=== PATIENT | male | born 1950 | race Caucasian/White ===

== ENCOUNTER 2024-04-06 13:11 | Inpatient (IN) | payer OTHER, MEDICARE, SELFPAY ==
[2024-04-06] VITALS (20 sets, daily range): BP systolic 93–142; BP diastolic 52–113; PULSE 94–205; RESP 16–36; TEMP 37–38.7; O2SAT 76–99; BMI 27.1
--- NOTE | 2024-04-06 13:13 | EKG_ITS ---
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
[2024-04-06] MEDS: ALBUTEROL RT 2.5 MG/0.5 ML NEBU 10 MG INH (13:19)
[2024-04-06] MEDS: SODIUM CHLORIDE RT SOL 0.9% 3 ML NEBU INH ×2 (13:19→17:10)
[2024-04-06] MEDS: IPRATROPIUM RT 0.5 MG/ 2.5 ML NEBU INH (13:19)
--- NOTE | 2024-04-06 13:20 | EDNOTE_ITS ---
ED SOB =RME/HPI General Chief Complaint: Shortness of Breath/Dyspnea Stated Complaint: STAT Time Seen by Provider: 04/06/24 13:13 Arrival date/time: 04/06/24 13:11 RME / HPI RME / HPI Narrative: DR. PENNINGTON MAIN ED EVALUATION: 73 year old male presents to the Emergency Department [facility] with complaint of shortness of breath. Patient also reported diarrhea. Symptoms are moderate. Onset of symptoms 3-4 days. No other symptoms reported. PMHx: Denies any PMHx, surgeries, daily medications, or known allergies. Social Hx: No tobacco, alcohol, or substance use. Related Data Allergies Allergy/AdvReac Type Severity Reaction Status Date / Time No Known Allergies Allergy Verified 04/06/24 13:26 Review of Systems Review of Systems Systems Reviewed: All systems reviewed, normal except as documented Narrative Review of Systems: GEN: No fever, no chills, no weight loss EYES: No discharge, no visual changes, no pain HEENT: No ear pain, no congestion, no sore throat PULM: + shortness of breath, no cough, no congestion CV: No chest pain, no dyspnea on exertion, no palpitations GI: No nausea, no vomiting, + diarrhea, no pain, no constipation : No frequency, no urgency and no dysuria MUSC/SKEL: No joint pain, no back pain SKIN: No rash PSYCH: No hallucinations, no depression HEME/LYMPH: No easy bleeding or bruising tendencies NEURO: No weakness, no headache Past Medical History Social History SMOKING STATUS: Never smoker SUBSTANCE USE: does not use ALCOHOL: Never ED Exam Narrative Physical exam: GENERAL APPEARANCE: alert and oriented x 4, well-developed, well-nourished, no acute distress VITALS: All vitals were reviewed and the pulse ox is 93% on room air, which is normal according to my interpretation. HEENT: Normocephalic, atraumatic; pupils equal, round, reactive to light; EOMI; mucous membranes pink, moist; oropharynx clear NECK: Supple LUNGS: CTABL; no wheezes, no rales, no rhonchi HEART: Regular rate, regular rhythm; normal S1, S2; no murmurs ABDOMEN: non distended; normal BS; soft, no tenderness, no guarding, no rebound; no masses, no organomegaly, no hernia BACK: no CVA tenderness EXTREMITIES: atraumatic; no edema NEUROLOGIC: awake; alert and oriented x4; cranial nerves II-XII grossly intact; no focal sensory or motor deficits PSYCHIATRIC: appropriate mood and affect SKIN: warm, dry, normal color; no rashes Course Course Course Narrative: 1800: Patient was signed out to Dr. Montejo. Past medical, surgical, social and family history reviewed. Vitals and home medications reviewed. Results and treatment plan discussed. They will assume the care of the patient at this time and will follow the patient, pending abdomen/ pelvis CT and final disposition. Quality Measures none Orders Category Date Time Status CT Screening NOW Care 04/06/24 16:48 Active Childcare Center Director NOW Care 04/06/24 14:22 Active EKG (ED ONLY) *Do not use* NOW Care 04/06/24 13:13 Completed EKG (ED ONLY) *Do not use* NOW Care 04/06/24 15:01 Completed EKG (ED ONLY) *Do not use* NOW Care 04/06/24 16:41 Active Insert IV NOW Care 04/06/24 17:[address] abdomen pelvis w con Stat Exams 04/06/24 16:48 Ordered EKG (ED Only) Stat Exams 04/06/24 13:13 Draft EKG (ED Only) Stat Exams 04/06/24 15:01 Draft EKG (ED Only) Stat Exams 04/06/24 16:41 Ordered XR chest 1V portable Stat Exams 04/06/24 14:22 Completed B-Type Natriuretic Peptide Stat Lab 04/06/24 15:00 Completed Blood Culture (Lab) Stat Lab 04/06/24 15:00 Received CBC Stat Lab 04/06/24 15:00 Completed Comprehensive Metabolic Panel Stat Lab 04/06/24 15:00 Completed Lactate (Lactic Acid) Stat Lab 04/06/24 15:00 Results Lipase Stat Lab 04/06/24 15:00 Completed Magnesium Stat Lab 04/06/24 15:00 Completed Partial Thromboplastin Time Stat Lab 04/06/24 15:00 Completed Procalcitonin Stat Lab 04/06/24 15:00 Completed Prothrombin Time with INR Stat Lab 04/06/24 15:00 Completed Troponin I Stat Lab 04/06/24 15:00 Completed Urinalysis Stat Lab 04/06/24 14:22 Ordered Urine Culture Stat Lab 04/06/24 14:22 Ordered ALBUTEROL RT 0.5ml [Proventil Rt 0.5ml] Med 04/06/24 13:13 Discontinued 10 mg INH X1 ONE Acetaminophen Tab [Tylenol ES Tab] Med 04/06/24 16:40 Discontinued 1,000 mg PO X1 ONE Aspirin Chew Med 04/06/24 16:42 Discontinued 325 mg PO X1 ONE Aspirin Chew Med 04/06/24 16:29 Discontinued 81 mg PO X1 ONE Azithromycin Inj [Zithromax Inj] 500 mg Med 04/06/24 16:39 Discontinued Sodium Chloride 0.9% 250 ml [Ns] 250 ml IV X1 Heparin/D5w 25K 250 ML Ivpb [Heparin in D5w Ivpb] Med 04/06/24 16:15 Active 25,000 unit in 250 ml IV 12 units/kg/hr Ipratropium Maynard Rt Khadra [Atrovent Rt Khadra] Med 04/06/24 13:13 Discontinued 0.5 mg INH X1 ONE Levalbuterol Rt [Xopenex Rt Khadra] Med 04/06/24 16:50 Discontinued 1.25 mg INH X1 ONE Nicotine Patch [Nicoderm Patch] Med 04/06/24 15:00 Discontinued 21 mg TOP X1 ONE Sodium Chloride 0.9% 1000 ml [Ns] 1,000 ml Med 04/06/24 15:33 Discontinued IV 999 mls/hr Sodium Chloride Rt Khadra 0.9% [NS Rt Khadra 0.9%] Med 04/06/24 13:13 Active 3 ml INH PRN PRN Sodium Chloride Rt Khadra 0.9% [NS Rt Khadra 0.9%] Med 04/06/24 13:13 Active 3 ml INH PRN PRN Sodium Chloride Rt Khadra 0.9% [NS Rt Khadra 0.9%] Med 04/06/24 16:50 Active 3 ml INH PRN PRN cefTRIAXone/D5w 1gm IV premix [Rocephin/D5w 1gm IV Med 04/06/24 16:39 Discontinued premix] 50 ml IV X1 Reevaluation(s) Reevaluation #1: Troponin 0.309, gave ASA 325. Patient now breathing better and will give another breathing treatment. Time: 16:50 Vital Signs Vital signs: Vital Signs Temperature 98.6 F 04/06/24 13:17 Pulse Rate 130 H 04/06/24 13:17 Respiratory Rate 32 H 04/06/24 13:17 Blood Pressure 139/113 H 04/06/24 13:17 Pulse Oximetry (%) 98 04/06/24 13:17 Oxygen Delivery Method Oxy Mask 04/06/24 13:17 Oxygen Flow Rate 6 04/06/24 13:17 Shortness of Breath / Dyspnea MDM Narrative MDM Narrative:: I, Ingrid Montoya, am scribing for and in the presence of Dr. Pennington. Patient data External records reviewed:: EMS form Clinical information provided by:: patient and EMS Social determinants that could affect healthcare access:: none Patient has the following chronic illnesses:: Denies any PMHx, surgeries, daily medications, or known allergies. How is presenting disease/condition affected by chronic disease/condition?: no chronic disease Evaluation data The following diagnostics were reviewed and interpreted by me:: lab results, radiology exam(s) and EKG tracing(s) Lab and/or radiology exams considered but not ordered:: none Interpretation Summary: Troponin 0.309, gave ASA 325 EKG#1: EKG at 1518 hours. Interpreted by me: sinus tachycardic, rate 127, occasional PVC's, no acute ischemia, mild artifact EKG#2: EKG at 1710 hours. Interpreted by me: sinus tachycardic, rate 125, frequent PVC's, no acute ischemia, mild artifact RADIOLOGY Procedure(s): XR chest 1V portable Accession Number(s): [id number] cc: Luis Willis MD; NO PRIMARY/FAMILY,PHYSICIAN; Ria Pennington MD~ Examination: AP chest single view Technique one AP portable upright chest single view Exam date and time: April 06, 2024 1502 hours INDICATIONS: Onset chest pain today FINDINGS: Normal heart size Mild accentuation bronchovascular markings. No lobar pneumonia Prominent osteopenia IMPRESSION: Basilar bronchitis pattern Dictated By: Luis Willis MD Medications / Prescriptions Medications or Prescriptions considered but not ordered:: none Medication administrations:: Medication Administration History Heparin Sodium/Dextrose (Heparin In D5w Ivpb) 25,000 unit in 250 mls @ 10.886 mls/hr IV .[id number]; Protocol Stop: 04/20/24 16:14 Sodium Chloride (Sodium Chloride Rt Khadra 0.9% 3 Ml Nebu) 3 ml INH PRN PRN PRN Reason: SOLN Stop: 05/06/24 13:12 Last Admin: 04/06/24 17:10 Dose: 3 ml Documented By: Admin: 04/06/24 13:19 Dose: 3 ml Documented By: JAY Sodium Chloride (Sodium Chloride Rt Khadra 0.9% 3 Ml Nebu) 3 ml INH PRN PRN PRN Reason: SOLN Stop: 05/06/24 13:12 Sodium Chloride (Sodium Chloride Rt Khadra 0.9% 3 Ml Nebu) 3 ml INH PRN PRN PRN Reason: SOLN Stop: 05/06/24 16:49 Discontinued Medications Acetaminophen (Acetaminophen 500 Mg Tablet) 1,000 mg PO X1 ONE Stop: 04/06/24 16:41 Last Admin: 04/06/24 17:02 Dose: 1,000 mg Documented By: SON Albuterol (Albuterol Rt 2.5 Mg/0.5 Ml Nebu) 10 mg INH X1 ONE Stop: 04/06/24 13:14 Last Admin: 04/06/24 13:19 Dose: 10 mg Documented By: JAY Aspirin (Aspirin 81 Mg Chew) 81 mg PO X1 ONE Stop: 04/06/24 16:30 Last Admin: 04/06/24 16:58 Dose: Not Given Documented By: SON Non-Admin Reason: Cancelled by Provider Aspirin (Aspirin 81 Mg Chew) 325 mg PO X1 ONE Stop: 04/06/24 16:43 Last Admin: 04/06/24 17:03 Dose: 325 mg Documented By: SON Sodium Chloride (Ns) 1,000 mls @ 999 mls/hr IV .Q1H1M ONE Stop: 04/06/24 16:33 Last Admin: 04/06/24 16:57 Dose: 999 mls/hr Documented By: SON Ceftriaxone Sodium/Dextrose (Rocephin/D5w 1gm Iv Premix) 50 mls @ 100 mls/hr IV X1 ONE Stop: 04/06/24 17:08 Last Admin: 04/06/24 17:06 Dose: 100 mls/hr Documented By: DB Azithromycin 500 mg/ Sodium (Chloride) 250 mls @ 250 mls/hr IV X1 ONE Stop: 04/06/24 17:38 Ipratropium Maynard (Ipratropium Rt 0.5 Mg/ 2.5 Ml Nebu) 0.5 mg INH X1 ONE Stop: 04/06/24 13:14 Last Admin: 04/06/24 13:19 Dose: 0.5 mg Documented By: TM Levalbuterol HCl (Levalbuterol Rt 1.25 Mg/0.5 Ml Nebu) 1.25 mg INH X1 ONE Stop: 04/06/24 16:51 Last Admin: 04/06/24 17:10 Dose: 1.25 mg Documented By: RICHY Nicotine (Nicotine Patch 21 Mg/24 Hr Patch.Td24) 21 mg TOP X1 ONE Stop: 04/06/24 15:01 Last Admin: 04/06/24 17:05 Dose: 21 mg Documented By: SON see above Consultations Consultation(s) initiated? (list below): Yes Consultation #1 (Physician, Specialty, Details): Discussed test HPI, PMHx, lab, radiology results and/or management with Dr. Ferro's resident. Cancelled heparin drip becausem patient is not in atrial fibrillation. Time: 17:00 Diagnosis Shortness of Breath Differential Diagnosis: acute exacerbation of chronic obstructive airways disease, community acquired pneumonia, asthma with exacerbation and pulmonary embolism Most likely diagnosis given after review of the tests above:: No official diagnoses at this time, still pending diagnostic tests. Patient signout to the shift production supervisor provider. Admission Indicated Admission indicated?: indicated Explain why admission is indicated or not indicated:: No final disposition plan at this time, still pending diagnostic tests. Patient signout to the shift production supervisor provider. Admission Request Was there a request for admission?: No Disposition Plan Disposition Plan: other (specify) (Patient signout to the shift production supervisor provider. ) Discharge Plan Prescriptions/Referrals Referrals: No Primary/Family,Physician [Primary Care Provider] - In 1 week Patient/Caregiver Discharge Instructions Print Language: Wallisian
--- NOTE | 2024-04-06 14:22 | XR_ITS ---
Examination: AP chest single view Technique one AP portable upright chest single view Exam date and time: April 06, 2024 1502 hours INDICATIONS: Onset chest pain today FINDINGS: Normal heart size Mild accentuation bronchovascular markings. No lobar pneumonia Prominent osteopenia IMPRESSION: Basilar bronchitis pattern
--- NOTE | 2024-04-06 15:01 | EKG_ITS ---
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
--- NOTE | 2024-04-06 15:21 | PC.NURSE ---
REQUEST NICOTINE PATCH FROM PHARMACY AT THIS TIME. PROVIDED PT WATER, GIVEN THE OK BY WATER QUALITY TECHNICIAN WHO WAS AT BEDSIDE.
[2024-04-06 15:27] LABS: Basophils % (Auto) 0 % (0-2.5); Eosinophils % (Auto) 0 % (0-10); Hematocrit 47.2 % (41.0-53.0); Hemoglobin 15.7 g/dL (13.5-16.0); Immature Granulocytes % (Auto) 1 % (0-0); Immature Granulocytes Auto 0.16 Thou/mm3 (0.00-0.00); Lymphocytes # (Auto) 0.5 Thou/mm3 (1.0-4.8); Lymphocytes % (Auto) 3 % (10-50); Mean Corpuscular HGB Conc 33.3 g/dl (31.0-37.0); Mean Corpuscular Hemoglobin 29.3 pg (25.0-35.0); Mean Corpuscular Volume 88 fL (80-100); Monocytes # (Auto) 1.4 Thou/mm3 (0.0-0.8); Monocytes % (Auto) 9 % (0-12); Neutrophils # (Auto) 13.4 Thou/mm3 (1.8-7.7); Neutrophils % (Auto) 87 % (37-80); Nucleated Red Blood Cell % 0 /100 WBC (0); Platelet Count 236 Thou/mm3 (140-440); Red Blood Count 5.36 Miln/mm3 (4.50-5.90); White Blood Count 15.4 Thou/mm3 (3.8-10.6)
[2024-04-06 15:31] LABS: Lactate (Lactic Acid) 4.1 mMol/L (0.4-2.0)
[2024-04-06 15:48] LABS: B-Type Natriuretic Peptide 60 pg/mL (0-100)
[2024-04-06 15:51] LABS: INR 1.1 (0.9-1.3); Partial Thromboplastin Time 29.4 Seconds (22.0-36.0); Prothrombin Time 11.8 Seconds (9.0-12.2)
[2024-04-06 16:09] LABS: Alanine Aminotransferase 32 U/L (10-49); Albumin, Serum 4.1 gm/dL (3.4-4.8); Albumin/Globulin Ratio 1.6 (1.2-2.2); Alkaline Phosphatase 91 U/L (46-116); Anion Gap 10 (7-16); Aspartate Amino Transferase 74 U/L (0-34); BUN/Creatinine Ratio 17 Ratio (12-20); Bilirubin,Total 0.5 mg/dL (0.3-1.2); Blood Urea Nitrogen 34 mg/dL (9-23); Calcium 8.9 mg/dL (8.3-10.6); Calcium (Corrected) 8.9 mg/dL (8.5-10.1); Carbon Dioxide 23.9 mMol/L (20.0-31.0); Chloride 102 mMol/L (98-107); Estimated Creatinine Clearance 37.2 mL/min (>60); Globulin 2.6 gm/dL (2.3-3.5); Glucose 112 mg/dL (74-106); Lipase 26 U/L (12-53); Magnesium 2.2 mg/dL (1.6-2.6); Osmolality,Calculated 280 (275-295); Potassium 4.3 mMol/L (3.4-5.1); Procalcitonin 5.95 ng/ml (0.0-0.49); Sodium 136 mMol/L (136-145); Total Protein 6.7 gm/dL (5.7-8.2); eGFR 35 See Note
[2024-04-06 16:11] LABS: Troponin I 0.309 ng/mL (0.0-0.045)
[2024-04-06] MEDS: SODIUM CHLORIDE 0.9% 1000 ML 1,000 ML 999 ML IV ×2 (16:57→22:47)
[2024-04-06] MEDS: ACETAMINOPHEN 500 MG TABLET 1000 MG PO (17:02)
[2024-04-06] MEDS: ASPIRIN 81 MG CHEW 325 MG PO (17:03)
[2024-04-06] MEDS: NICOTINE PATCH 21 MG/24 HR PATCH.TD24 TOP (17:05)
[2024-04-06] MEDS: cefTRIAXone/D5w 1gm IV premix 50 ML IV (17:06)
[2024-04-06] MEDS: LEVALBUTEROL RT 1.25 MG/0.5 ML NEBU INH (17:10)
--- NOTE | 2024-04-06 18:13 | PD.EDADDENDU ---
Emergency Room Addendum Addendum Narrative: 1800: Care assumed from Dr. Pennington, the previous shift emergency physician. Past medical, surgical, social and family history reviewed. Vitals and home medications reviewed. Results and treatment plan discussed. I will assume the care of the patient at this time and will follow the patient, pending CT abdomen pelvis. Please refer to the emergency department record for history and examination from initial visit. 1844: I spoke with the patient and he does not have any abdominal complaints. On my exam, the patient does not have any tenderness to palpation. I do not feel the patient needs a CT abdomen pelvis at this time. 191: Discussed case with [the resident physician, attending Dr. Astudillo] from Hospitalist service regarding admission. Discussed patients ED course, exam findings, labs, and radiology results. The Hospitalist [agrees] to accept the patient for admission. Diagnoses: severe sepsis, COPD exacerbation, NSTEMI, SVT, diarrhea
[2024-04-06 18:22] LABS: Reflex Lactate? Y
[2024-04-06] MEDS: AZITHROMYCIN INJ 500 MG in SODIUM CHLORIDE 0.9% 250 ML 250 ML 250 MG IV (18:27)
--- NOTE | 2024-04-06 18:27 | PC.NURSE ---
PT INCONT OF [facility], INCONT CARE PROVIDED
--- NOTE | 2024-04-06 18:29 | PC.NURSE ---
SOPOKE WITH MD ABOUT CT WITH CONTRAST PT ABNORMAL LABS, MD WILL REVIEW AND MAKE A DECISION
[2024-04-06 18:43] LABS: Lactic Acid, 3 HR 2.4 mMol/L (0.4-2.0)
--- NOTE | 2024-04-06 20:59 | PD.RESHP ---
Documentation for date of: 04/06/24 HPI History of Present Illness History of present illness: 73-year-old male past medical history of smoking 30 pack years, remote history of perforated peptic ulcer status post laparotomy who presented to the ER, accompanied by son. Patient reported that he was feeling short of breath for the past 2 weeks, and has been taking [id number] medications with no particular relief, Denied having chest pain or prior cardiac history, shortness of breath is intermittent present at rest as well as worsening with exertion. Also reported diarrhea for the past 3 days, watery in consistency, reported no abdominal pain or discomfort, no RUQ tenderness or rebound tenderness. Denied blood or mucus with diarrhea. Patient reported making urine, he has a diaper on which is wet,?in the ER, patient was given IV fluid bolus 1 L, antibiotics, blood cultures drawn, chest x-ray was done which showed Basilar bronchitis pattern, no evidence of pneumonia, patient also had an episode of SVT, noted on paper EKG at 12:47 PM, not scanned in chart, and was started on heparin drip, likely terminated spontaneously, per ER provider notes, discussed management with Dr. Ferro's resident. Cancelled heparin drip because patient is not in atrial fibrillation. Patient is admitted for sepsis, COPD exacerbation, diarrhea. Past medical and surgical history: smoking 30 pack years, remote history of perforated peptic ulcer status post laparotomy, has not followed up with doctor in years. Family Hx: No pertinent family history Travel Hx: No recent travel history Social Hx: Current tobacco user, denies marijuana, meth or cocaine or alcohol abuse Review of Systems Review of Systems Narrative Review of Systems: General: Denies fevers or chills HEENT: Denies congestion or sore throat Heart: Denies chest pain or palpitations Lungs: See HPI for detail Abdomen: See HPI for details Genitourinary: Denies frequency, urgency, dysuria, or hematuria Musculoskeletal: Denies joint pain, denies muscular pain Neurology: Denies any numbness, tingling Review of systems otherwise negative except what is mentioned above. Past Medical History Social History SMOKING STATUS: Never smoker SUBSTANCE USE: does not use Exam Vital Signs Temp Pulse Resp BP Pulse Ox O2 Del Method O2 Flow Rate 101.7 F H 109 H 22 H 93/69 95 Room Air 4 04/06/24 18:26 04/06/24 20:01 04/06/24 20:01 04/06/24 20:01 04/06/24 20:01 04/06/24 18:00 04/06/24 17:10 Narrative Exam General: AOx3, cooperative, , currently on nasal cannula O2 5L/min Skin: Intact, no cyanosis or edema noted. HEENT: Atraumatic/normocephalic, VALERI, neck supple Heart: RRR, S1 and S2 without clicks or murmurs Lungs: Bilateral wheezing on auscultation Abdomen: Soft but distended, nontender, medial laparotomy scars present, small incisional hernia is present which is easily reducible. Vascular: Peripheral pulses palpable Neuro: No focal neurological deficits noted. Results: Labs 04/06/24 15:00 04/06/24 15:00 Labs: Short CBC 04/06/24 Range/Units 15:00 WBC 15.4 H (3.8-10.6) Thou/mm3 Hgb 15.7 (13.5-16.0) g/dL Hct 47.2 (41.0-53.0) % Plt Count 236 (140-440) Thou/mm3 BMP 04/06/24 15:00 Sodium 136 Potassium 4.3 Chloride 102 Carbon Dioxide 23.9 BUN 34 H Creatinine 2.0 H Glucose 112 H Calcium 8.9 Cardiac Enzymes 04/06/24 Range/Units 15:00 Troponin I 0.309 H* (0.0-0.045) ng/mL Liver Function 04/06/24 Range/Units 15:00 Total Bilirubin 0.5 (0.3-1.2) mg/dL AST 74 H (0-34) U/L ALT 32 (10-49) U/L Alkaline Phosphatase 91 (46-116) U/L Albumin 4.1 (3.4-4.8) gm/dL Quality Measures Quality Measures none Advance care planning discussed with:: patient Medications Home Medications and Allergies Allergies Allergy/AdvReac Type Severity Reaction Status Date / Time No Known Allergies Allergy Verified 04/06/24 13:26 Visit Medications Acetaminophen (Acetaminophen 325 Mg Tablet) 650 mg PO Q6H PRN PRN Reason: PAIN OR FEVER > 101 Stop: 05/06/24 20:02 Piperacillin/Tazobactam/Dextrose (Zosyn) 2.25 gm in 50 mls @ 100 mls/hr IV Q8HR [facility] Stop: 04/13/24 20:04 Azithromycin 500 mg/ Sodium (Chloride) 250 mls @ 250 mls/hr IV QDAY@2100 [facility] Stop: 04/14/24 20:59 Ipratropium Pierson (Ipratropium Rt 0.5 Mg/ 2.5 Ml Nebu) 0.5 mg INH Q6HRRT [facility] Stop: 05/07/24 00:59 Levalbuterol HCl (Levalbuterol Rt 0.63 Mg/3 Ml Nebu) 0.63 mg INH Q6HR [facility] Stop: 05/06/24 20:14 Ondansetron HCl (Ondansetron Inj 2 Mg/Ml Inj 2 Ml) 4 mg IV Q6H PRN; Protocol PRN Reason: NAUSEA OR VOMITING Stop: 05/06/24 20:02 Sennosides (Senna Tablet) 2 tab PO BID PRN; Protocol PRN Reason: CONSTIPATION Stop: 05/06/24 20:02 Sodium Chloride (Sodium Chloride Rt Khadra 0.9% 3 Ml Nebu) 3 ml INH PRN PRN PRN Reason: SOLN Stop: 05/06/24 13:12 Last Admin: 04/06/24 17:10 Dose: 3 ml Sodium Chloride (Sodium Chloride Rt Khadra 0.9% 3 Ml Nebu) 3 ml INH PRN PRN PRN Reason: SOLN Stop: 05/06/24 13:12 Sodium Chloride (Sodium Chloride Rt Khadra 0.9% 3 Ml Nebu) 3 ml INH PRN PRN PRN Reason: SOLN Stop: 05/06/24 16:49 Discontinued Medications Acetaminophen (Acetaminophen 500 Mg Tablet) 1,000 mg PO X1 ONE Stop: 04/06/24 16:41 Last Admin: 04/06/24 17:02 Dose: 1,000 mg Albuterol (Albuterol Rt 2.5 Mg/0.5 Ml Nebu) 10 mg INH X1 ONE Stop: 04/06/24 13:14 Last Admin: 04/06/24 13:19 Dose: 10 mg Aspirin (Aspirin 81 Mg Chew) 81 mg PO X1 ONE Stop: 04/06/24 16:30 Last Admin: 04/06/24 16:58 Dose: Not Given Aspirin (Aspirin 81 Mg Chew) 325 mg PO X1 ONE Stop: 04/06/24 16:43 Last Admin: 04/06/24 17:03 Dose: 325 mg Heparin Sodium/Dextrose (Heparin In D5w Ivpb) 25,000 unit in 250 mls @ 10.886 mls/hr IV .[id number] [facility]; Protocol Stop: 04/20/24 16:14 Last Admin: 04/06/24 18:16 Dose: Not Given Sodium Chloride (Ns) 1,000 mls @ 999 mls/hr IV .Q1H1M ONE Stop: 04/06/24 16:33 Last Infusion: 04/06/24 18:28 Dose: Infused Ceftriaxone Sodium/Dextrose (Rocephin/D5w 1gm Iv Premix) 50 mls @ 100 mls/hr IV X1 ONE Stop: 04/06/24 17:08 Last Infusion: 04/06/24 17:36 Dose: Infused Azithromycin 500 mg/ Sodium (Chloride) 250 mls @ 250 mls/hr IV X1 ONE Stop: 04/06/24 17:38 Last Infusion: 04/06/24 20:07 Dose: Infused Ipratropium Pierson (Ipratropium Rt 0.5 Mg/ 2.5 Ml Nebu) 0.5 mg INH X1 ONE Stop: 04/06/24 13:14 Last Admin: 04/06/24 13:19 Dose: 0.5 mg Levalbuterol HCl (Levalbuterol Rt 1.25 Mg/0.5 Ml Nebu) 1.25 mg INH X1 ONE Stop: 04/06/24 16:51 Last Admin: 04/06/24 17:10 Dose: 1.25 mg Nicotine (Nicotine Patch 21 Mg/24 Hr Patch.Td24) 21 mg TOP X1 ONE Stop: 04/06/24 15:01 Last Admin: 04/06/24 17:05 Dose: 21 mg Assessment & Plan Plan 73-year-old male past medical history of smoking 30 pack years, remote history of perforated peptic ulcer status post laparotomy who presented to the ER, accompanied by son. Patient reported that he was feeling short of breath for the past 2 weeks, and has been taking [id number] medications with no particular relief, Denied having chest pain or prior cardiac history, shortness of breath is intermittent present at rest as well as worsening with exertion. Also reported diarrhea for the past 3 days, watery in consistency, reported no abdominal pain or discomfort, no RUQ tenderness or rebound tenderness. Denied blood or mucus with diarrhea. Patient reported making urine, he has a diaper on which is wet,?in the ER, patient was given IV fluid bolus 1 L, antibiotics, blood cultures drawn, chest x-ray was done which showed Basilar bronchitis pattern, no evidence of pneumonia, patient also had an episode of SVT, noted on paper EKG at 12:47 PM, not scanned in chart, and was started on heparin drip, likely terminated spontaneously, per ER provider notes, discussed management with Dr. Ferro's resident. Cancelled heparin drip because patient is not in atrial fibrillation. Patient is admitted for sepsis, COPD exacerbation, diarrhea. #Sepsis Unknown source, possible sepsis secondary to GI source, pending urinalysis, patient has a diaper on, which is wet, reported no difficulty urinating, ordered straight and out cath to collect urine sample for urinalysis. Apparently CT abdomen pelvis was ordered by ER which was later canceled . Given patient's benign abdominal exam findings, no history of kidney stones or RUQ tenderness, andn concurrent BHARATH will hold off on CT contrast imaging. Lactic acidosis, improved after IV fluid boluses. ? Renally dosed IV Zosyn ? Follow blood cultures ? Ordered urinalysis #Acute hypoxic respiratory failure #COPD exacerbation Undiagnosed COPD, [id number] smoking history, recently started getting short of breath, patient is wheezing on physical exam, respiratory rate in high 20s. ? Nebulization with ipratropium and lev albuterol, will hold off DuoNebs due to SVT. ? Will hold off on IV steroids due to concurrent sepsis, but if respiratory distress continues to worsen, may consider methylprednisone 40 mg daily. #Diarrhea ? Ordered stool WBC, stool culture, C. difficile studies, though less concerned about C. difficile as no recent history of antibiotic use or hospitalization. #SVT Transient SVT, likely self terminated based on chart review, EKG shows SVT with aberrant conduction, noted on paper EKG at 12:47 PM, heart rate in the 160s, repeat EKG showed heart rate in the 110s, sinus tachycardia versus multifocal atrial tachycardia. Possibly triggered by volume depletion, will continue with IV fluids, will continue telemetry monitoring. per ER provider notes, Initially given loading dose aspirin 325 mg and placed on heparin drip which was discontinued as no evidence of A-fib, they discussed management with cardiology. Cancelled heparin drip because patient is not in atrial fibrillation. ? Echocardiogram ordered, consider formal cardiology consult if indicated. #NSTEMI, likely type II Noted troponin elevation, denied having any chest pain or pressure-like symptoms, shortness of breath likely secondary to COPD exacerbation, will continue to trend troponin, already received ASA loading dose in the ER. ?Consider cardiology consult if continued uptrending troponin #BHARATH Unsure of baseline creatinine, but patient denied prior history of renal failure. Received IV fluid boluses in the ER. ? Gentle IV hydration ? Renally dose antibiotics ? Repeat labs in the a.m., consider nephrology consult if no improvement renal function. ? Ordered bladder scan Disposition: Med telemetry DVT prophylaxis: Heparin subcut GI prophylaxis: None Diet: Renal Lines: PIV CODE STATUS: Full The plan of care was discussed with my attending physician Dr. Baudilio Wheeler MD PGY2 This document was completed utilizing speech recognition software. Grammatical errors, random word insertions, pronoun errors, and incomplete sentences are an occasional consequence of this system due to software limitations, ambient noise, and hardware issues. Any formal questions or concerns about the content, text or information contained within the body of this dictation should be directly addressed to the provider for clarification. Attending Provider Attestation/Addendum I have examined the patient, reviewed labs and imaging findings, discussed the case with the resident(s), and reviewed entered orders. I agree with the plan of care as outlined in this note, with these additional summaries/recommendations: Patient is a 73-year-old male with a medical history with infrequent doctors visits, chronic tobacco use, and remote history of perforated petic ulcer disease who takes no prescriptions at home presents to [facility] emergency department on 04/06/2024 with chief complaints of shortness of breath and diarrhea for 3 days. In the emergency department patient was found to have acute hypoxic respiratory failure, COPD exacerbation, and sepsis. Hospitalist team consulted for continuation of care. #Acute hypoxic respiratory failure: Most likely 2/2 to COPD exacerbation. Titrate to O2 saturation of approximately 90%. Continue supplemental oxygen and wean as tolerated. #COPD exacerbation Never received formal diagnosis. Lifelong smoker and minimal wheezing on exam with hypoxia. Denies previously requiring intubation, unable to evaluate Gold severity Does have at least 2 of 3 cardinal symptoms qualifying patient for abx CXR: Bibasilar bronchitis pattern Supplemental O2, goal sat 90-92% Bronchodilator: Xopenex/ipratropium every 4-6 hours and as needed We will defer IV steroids for now as COPD exacerbation has significantly improved/mild at this time and patient diagnosed with sepsis Sputum culture not needed as per guidelines, given unreliable results and interpretations Antibiotics: Azithromycin X5 days (04/06/24-) #Sepsis SIRS: Meets 4 out of 4 SIRS criteria (temp >38, HR >90, WBC >12, RR >20) qSOFA 0 points on admission indicating not high risk for in-hospital mortality Presented with SOB & diarrhea, Labs notable for LA 4.1, WBC 15.4, Procal 5.95 Meets criteria for sepsis. Evidence of end organ damage with BHARATH and elevated troponin Most likely sources include infectious diarrhea vs UTI vs bacteremia Abx: Start IV zosyn (04/06/24-) & Azithromycin (04/06/24-) for COPD exacerbation Blood cx, urine cx, Stool cx, Stool wbcs, C. Diff, giardia ordered Fluids: received 30cc/kg, start maintenance fluids No need for pressors or source control at this time #Troponinemia #Episode of SVT #Sinus Tachycardia No cardiac complaints on admission other than shortness of breath which is attributed to COPD exacerbation Admission telemetry strip appears to be SVT although terminated given preceding EKG showed no evidence of SVT EKG #1: Appears to be sinus tachycardia, rate 127, occasional PVCs, mild artifact, no ST elevation EKG #2: Sinus tachycardia, rate 125, frequent PVCs, no acute ST elevation or depression Troponin likely elevated secondary to myocardial ischemia resulting from mismatch to myocardial oxygen supply and demand that is not related to unstable coronary artery disease Plan: Patient received loading dose of aspirin 325 mg p.o. x 1 in the ED and was started on heparin gtt. No evidence of A-fib/flutter or SVT at this time and we will discontinue heparin GTT. We will trend troponin every 8 hours or until downtrend. Order lipid panel. Order echocardiogram. Consult cardiology, recommendations appreciated. Monitor electrolytes closely and replace as needed. # Lactic acidosis Most likely secondary to type a from sepsis and hypoxia On admission LA 4.1 and improved to 2.4 after fluid resuscitation Plan: Continue IV maintenance fluids # Acute kidney injury No previous labs available for comparison. On admission CR 2.0 and BUN 34. Baseline creatinine unknown. Most likely secondary to prerenal azotemia in the setting of sepsis Avoid nephrotoxic agents and renally dose medications Plan: Start IV maintenance fluids and repeat renal panel in a.m. Dr. Astudillo
[2024-04-06] MEDS: LEVALBUTEROL RT 0.63 MG/3 ML NEBU INH (21:26)
--- NOTE | 2024-04-06 21:26 | ECHO_ITS ---
Transthoracic Echo Report Ht (in): 72 Wt (lb): 200 Exam Location: Echo Lab Status: Inpatient Civil Geotechnical Engineer: Vandana Kay Indications: Procedure Performed: BP: 135 / 80 HR: 84 MEASUREMENTS (Male / Female) Normal Values 2D ECHO LV Diastolic Diameter PLAX 5.0 cm 4.2 - 5.9 / 3.9 - 5.3 cm LV Systolic Diameter PLAX 4.4 cm IVS Diastolic Thickness 1.0 cm 0.6 - 1.0 / 0.6 - 0.9 cm LVPW Diastolic Thickness 1.1 cm 0.6 - 1.0 / 0.6 - 0.9 cm LV Relative Wall Thickness 0.4 LVOT Diameter 2.0 cm LV Ejection Fraction MOD BP 37.3 % >= 55 % LV Cardiac Index MOD BP 1185.9 cm?/min?m? LV Ejection Fraction MOD 4C 40.8 % LV Cardiac Index MOD 4C 1306.4 cm?/min?m? LV Ejection Fraction 4C AL 42.6 % LV Cardiac Index 4C AL 1411.0 cm?/min?m? LV Ejection Fraction MOD 2C 36.3 % LV Cardiac Index MOD 2C 1018.7 cm?/min?m? LV Ejection Fraction 2C AL 34.4 % LV Cardiac Index 2C AL 977.5 cm?/min?m? LA Volume Index 14.7 cm?/m? 16 - 28 cm?/m? DOPPLER AV Peak Velocity 189.0 cm/s AV Peak Gradient 14.3 mmHg AV Mean Gradient 6.0 mmHg AV Velocity Time Integral 28.4 cm LVOT Peak Velocity 120.0 cm/s LVOT Peak Gradient 5.8 mmHg LVOT Velocity Time Integral 19.1 cm LVOT Cardiac Index 2333.0 cm?/min?m? AV Area Cont Eq vti 2.1 cm? AV Area Cont Eq pk 2.0 cm? MV Area PHT 2.9 cm? Mitral E Point Velocity 51.9 cm/s Mitral A Point Velocity 78.6 cm/s Mitral E to A Ratio 0.7 LV E' Lateral Velocity 11.3 cm/s Mitral E to LV E' Lateral Ratio 4.6 LV E' Septal Velocity 6.6 cm/s Mitral E to LV E' Septal Ratio 7.8 PV Peak Velocity 114.0 cm/s PV Peak Gradient 5.2 mmHg FINDINGS Left Ventricle Normal left ventricular size and wall thickness. Normal left ventricular diastolic filling pattern for age. The ejection fraction is visually estimated at 35-40%. Global left ventricular systolic function is mildly decreased. Right Ventricle The right ventricle is normal in size and systolic function. Left Atrium The left atrium is normal by two-dimensional, color flow and Doppler imaging with no structural abnormalities, no thrombus formation present. Right Atrium The right atrium is normal by two-dimensional imaging, color flow and Doppler imaging with no structural abnormalities, no thrombus formation present. Atrial Septum The interatrial septum appears normal with no evidence of a shunt. Aorta The aorta is normal by two-dimensional, color flow and Doppler interrogation. Mitral Valve The mitral valve is normal by two-dimensional, color flow and Doppler interrogation. There is no significant mitral valve regurgitation, stenosis or prolapse. Aortic Valve Mild thickening of the aortic valve leaflets. Tricuspid Valve The tricuspid valve is normal by two-dimensional, color flow and Doppler interrogation. There is trace tricuspid valve regurgitation. Pulmonic Valve The pulmonic valve is not well visualized. There is no significant pulmonic valve regurgitation. Vessels The pulmonary artery appears normal. The inferior vena cava pulmonary and hepatic veins appear normal. Pericardium The pericardium is normal by two-dimensional imaging. There is no significant pericardial effusion. CONCLUSIONS Indication: SVT and elevated tyroponin Normal LV size and wall thickness. Mild LV dysfunction with an Estimated EF 40- 45%. RV is normal in size and systolic function. Trace TR and could not calculate RVSP. Moderate AV sclerosis withoout stenosis. AV velocity might be under estimated. Milf to moderate MAC with trace MR Ricky Kasie (Electronically Signed) Final Date: 08 April 2024 13:45
[2024-04-06 22:04] LABS: Troponin I 0.562 ng/mL (0.0-0.045)
[2024-04-06 22:05] LABS: Stool for WBCs Negative (Negative)
[2024-04-06 22:15] LABS: Collection Type, Urine Clean Catch
[2024-04-06] MEDS: RINGERS LACTATED 1000 ML 1,000 ML 75 ML IV (22:47)
[2024-04-06 22:51] LABS: Bacteria,Urine 1+; Bilirubin,Urine Negative (Negative); Blood,Urine 3+ (Negative); Clarity,Urine Turbid (Clear/Hazy); Color,Urine Yellow (Lt Yel-Yel); Glucose, Urine Negative (Negative); Ketones,Urine Negative (Negative); Leukocyte Esterase,Urine Positive (Negative); Nitrite,Urine Negative (Negative); Protein,Urine 1+ (Neg - Trace); RBC,Urine 205 /hpf (0-3); Specific Gravity,Urine 1.022 (1.001-1.035); Squamous Epithelial Cell,Urine 1 /hpf (0-5); WBC,Urine 65 /hpf (0-5)
[2024-04-07] VITALS (12 sets, daily range): BP systolic 101–140; BP diastolic 64–83; PULSE 80–118; RESP 20–30; TEMP 36.5–37.6; O2SAT 93–100; BMI 27.1
--- NOTE | 2024-04-07 00:02 | PD.RESCONSUL ---
HPI Data of Consult Requesting Physician: Abimael Astudillo MD Admitting Provider: Abimael Astudillo MD Attending Provider: Abimael Astudillo MD Primary Care Provider: Physician No Primary/Family Consult Narrative History of present illness: Mr. Leahy is a 73-year-old male with past medical history significant for asthma, tobacco use disorder and substance abuse initially presented to the emergency room at [facility] because he had intractable vomiting for several days however patient refused to be hospitalized therefore went home. 2 days later patient progressively became worsening short of breath which prompted his family to bring him to the emergency department at [facility]. Patient states he has been smoking 1 pack of cigarettes daily for 16 years and he noticed recently he has been becoming increasingly short of breath even when at rest. Patient denies any upper respiratory tract infections, recent illnesses other than intractable vomiting and diarrhea today and or recent travels. 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 Patient states he has never seen a doctor because he is never needed to. Patient states he purchased his inhaler for asthma for many years [id number] has been using it twice a week. Patient denies any chest pain, pressure, palpitations, dizziness, syncopal episode or falls. Patient states he has never had any health issues other than this severe shortness of breath for the past 1 week. ED course In the ED patient's blood pressure was 139/112, heart rate 133, respirations 32, WBC 15.4, BUN 34 creatinine 2.0, GFR 35, blood glucose 112, lactic acid 2.4, AST 74, troponin 0.309 -> 0.562, procalcitonin 5.95 Urinalysis showed WBC 65, RBCs 2 5, leukocyte esterase positive, urine blood 3+, urine protein 1 Initial EKG in the ED showed supraventricular tachycardia patient was given adenosine which appeared to have converted the patient to A-fib ED had then started the patient on heparin drip however heparin drip was soon after discontinued because repeat EKG showed multifocal atrial tachycardia with PACs therefore no anticoagulation is needed Past medical history: Asthma, tobacco dependence Family history: Patient's mom is and had open heart surgery and multiple stents placed and patient cannot recall at what age, patient's mother also had type 2 diabetes, CKD and congestive heart failure. 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 for many years and retired approximately 5 years ago, patient admits to snorting crystal meth which he used to do regularly but in the recent years he sometimes snorts, patient also occasionally smokes marijuana, patient denies drinking alcohol cc:: cc: Abimael Astudillo MD Review of Systems Review of Systems Systems Reviewed: All systems reviewed, normal except as documented Exam Vital Signs Temp Pulse Resp BP Pulse Ox O2 Del Method O2 Flow Rate 98.8 F 94 16 142/69 H 98 Room Air 5 04/06/24 23:01 04/06/24 23:01 04/06/24 23:01 04/06/24 23:01 04/06/24 23:01 04/06/24 18:00 04/06/24 21:27 Narrative Exam GENERAL: A&Ox3 . Awake, appears to be in respiratory distress NEURO: no focal neurological deficits HEENT: Atraumatic, Normocephalic. mucous membranes moist. Eyes open, symmetrical, & clear HEART: Normal Heart Sounds LUNGS: Clear to auscultation with no wheezing or crackles. ABDOMEN: soft, non-distended, non-tender, bowel sounds heard, no guarding or rebound tenderness SKIN: No Rash or ecchymoses EXTREMITIES: No edema, tenderness, able to move all 4 extremities, pedal pulses palpated Results Labs 04/07/24 05:07 04/07/24 05:07 Labs: Short CBC 04/06/24 Range/Units 15:00 WBC 15.4 H (3.8-10.6) Thou/mm3 Hgb 15.7 (13.5-16.0) g/dL Hct 47.2 (41.0-53.0) % Plt Count 236 (140-440) Thou/mm3 BMP 04/06/24 15:00 Sodium 136 Potassium 4.3 Chloride 102 Carbon Dioxide 23.9 BUN 34 H Creatinine 2.0 H Glucose 112 H Calcium 8.9 Cardiac Enzymes 04/06/24 04/06/24 Range/Units 15:00 21:27 Troponin I 0.309 H* 0.562 H* D (0.0-0.045) ng/mL Liver Function 02/07/25 Range/Units 15:00 Total Bilirubin 0.5 (0.3-1.2) mg/dL AST 74 H (0-34) U/L ALT 32 (10-49) U/L Alkaline Phosphatase 91 (46-116) U/L Albumin 4.1 (3.4-4.8) gm/dL Urine 04/06/24 Range/Units 22:07 Urine Color Yellow (Lt Yel-Yel) Urine Clarity Turbid A (Clear/Hazy) Urine pH 5.0 (5.0-7.0) Ur Specific [place] 1.022 (1.001-1.035) Urine Protein 1+ A (Neg - Trace) Urine Glucose (UA) Negative (Negative) Quality Measures Quality Measures none Advance care planning discussed with:: patient Medications Home Medications and Allergies Home Medications ?Medication ?Instructions ?Recorded ?Confirmed ?Type No Known Home Medications 04/07/24 04/07/24 History Allergies Allergy/AdvReac Type Severity Reaction Status Date / Time No Known Allergies Allergy Verified 04/06/24 13:26 Visit Medications Acetaminophen (Acetaminophen 325 Mg Tablet) 650 mg PO Q6H PRN PRN Reason: PAIN OR FEVER > 101 Stop: 05/06/24 20:02 Heparin Sodium (Porcine) (Heparin Sod Inj 5000 Unit/Ml Vial) 5,000 unit SC Q8HR [facility] Stop: 04/21/24 05:59 Piperacillin/Tazobactam/Dextrose (Zosyn) 2.25 gm in 50 mls @ 100 mls/hr IV Q8HR [facility] Stop: 04/13/24 20:04 Azithromycin 500 mg/ Sodium (Chloride) 250 mls @ 250 mls/hr IV QDAY@2100 [facility] Stop: 04/14/24 20:59 Lactated Ringer's (Lactated Ringers) 1,000 mls @ 75 mls/hr IV .[id number] ONE Stop: 04/07/24 10:40 Last Admin: 04/06/24 22:47 Dose: 75 mls/hr Ipratropium [place] (Ipratropium Rt 0.5 Mg/ 2.5 Ml Nebu) 0.5 mg INH Q6HRRT KAYLEE Stop: 05/07/24 00:59 Levalbuterol HCl (Levalbuterol Rt 0.63 Mg/3 Ml Nebu) 0.63 mg INH Q6HR KAYLEE Stop: 05/06/24 20:14 Last Admin: 04/06/24 21:26 Dose: 0.63 mg Ondansetron HCl (Ondansetron Inj 2 Mg/Ml Inj 2 Ml) 4 mg IV Q6H PRN; Protocol PRN Reason: NAUSEA OR VOMITING Stop: 05/06/24 20:02 Sennosides (Senna Tablet) 2 tab PO BID PRN; Protocol PRN Reason: CONSTIPATION Stop: 05/06/24 20:02 Sodium Chloride (Sodium Chloride Rt Khadra 0.9% 3 Ml Nebu) 3 ml INH PRN PRN PRN Reason: SOLN Stop: 05/06/24 13:12 Last Admin: 04/06/24 17:10 Dose: 3 ml Sodium Chloride (Sodium Chloride Rt Khadra 0.9% 3 Ml Nebu) 3 ml INH PRN PRN PRN Reason: SOLN Stop: 05/06/24 13:12 Sodium Chloride (Sodium Chloride Rt Khadra 0.9% 3 Ml Nebu) 3 ml INH PRN PRN PRN Reason: SOLN Stop: 05/06/24 16:49 Discontinued Medications Acetaminophen (Acetaminophen 500 Mg Tablet) 1,000 mg PO X1 ONE Stop: 04/06/24 16:41 Last Admin: 04/06/24 17:02 Dose: 1,000 mg Albuterol (Albuterol Rt 2.5 Mg/0.5 Ml Nebu) 10 mg INH X1 ONE Stop: 04/06/24 13:14 Last Admin: 04/06/24 13:19 Dose: 10 mg Aspirin (Aspirin 81 Mg Chew) 81 mg PO X1 ONE Stop: 04/06/24 16:30 Last Admin: 04/06/24 16:58 Dose: Not Given Aspirin (Aspirin 81 Mg Chew) 325 mg PO X1 ONE Stop: 04/06/24 16:43 Last Admin: 04/06/24 17:03 Dose: 325 mg Heparin Sodium/Dextrose (Heparin In D5w Ivpb) 25,000 unit in 250 mls @ 10.886 mls/hr IV .[id number] [facility]; Protocol Stop: 04/20/24 16:14 Last Admin: 04/06/24 18:16 Dose: Not Given Sodium Chloride (Ns) 1,000 mls @ 999 mls/hr IV .Q1H1M ONE Stop: 04/06/24 16:33 Last Infusion: 04/06/24 18:28 Dose: Infused Ceftriaxone Sodium/Dextrose (Rocephin/D5w 1gm Iv Premix) 50 mls @ 100 mls/hr IV X1 ONE Stop: 04/06/24 17:08 Last Infusion: 04/06/24 17:36 Dose: Infused Azithromycin 500 mg/ Sodium (Chloride) 250 mls @ 250 mls/hr IV X1 ONE Stop: 04/06/24 17:38 Last Infusion: 04/06/24 20:07 Dose: Infused Sodium Chloride (Ns) 1,000 mls @ 999 mls/hr IV .Q1H1M ONE Stop: 04/06/24 22:25 Last Infusion: 04/06/24 23:25 Dose: Infused Ipratropium [place] (Ipratropium Rt 0.5 Mg/ 2.5 Ml Nebu) 0.5 mg INH X1 ONE Stop: 04/06/24 13:14 Last Admin: 04/06/24 13:19 Dose: 0.5 mg Levalbuterol HCl (Levalbuterol Rt 1.25 Mg/0.5 Ml Nebu) 1.25 mg INH X1 ONE Stop: 04/06/24 16:51 Last Admin: 04/06/24 17:10 Dose: 1.25 mg Nicotine (Nicotine Patch 21 Mg/24 Hr Patch.Td24) 21 mg TOP X1 ONE Stop: 04/06/24 15:01 Last Admin: 04/06/24 17:05 Dose: 21 mg Assessment & Plan Plan Mr. Leahy is a 73-year-old male with past medical history significant for asthma, tobacco use disorder and substance abuse presented to the ED complaining of shortness of breath. #Acute hypoxemic respiratory failure #COPD exacerbation -Patient has been complaining of severe shortness of breath for the past 1 week days -He has smoked 1 pack/day cigarettes daily since the age of 18 -In the ED patient is placed on supplemental oxygen via nasal cannula currently saturating at 94% on 5 L of oxygen. Patient was also given nebulized breathing treatments which significantly resolved his wheezing. #Multifocal atrial tachycardia with PACs -patient's initial presentation was in supraventricular tachycardia and was given adenosine in the ED, patient was converted to multifocal atrial tachycardia. -Repeat EKG is evidence of multifocal atrial tachycardia with PACs -Recommend holding anticoagulation for now patient should be given beta-blockers. -Echocardiogram ordered # NSTEMI type II -Elevated troponins 0.309 -> 0.562, likely demand ischemia secondary to COPD exacerbation -Patient denies any chest pain , chest pressure or palpitations -Will continue to trend troponins every 6 hours # Acute kidney injury -Unable to compare to patient's baseline but patient's creatinine is 2.0 and GFR 35. Per primary hospitalist team will gentle hydration is ordered and if patient requires antibiotics they should be renally dosed will consider nephrology consult if patient's creatinine does not improve with hydration #Diarrhea -Patient complains of watery diarrhea that is unrelated to any recent food consumption and denies travel history or recent antibiotic use - Ordered stool WBC, stool culture, C. difficile studies, though less concerned about C. difficile as no recent history of antibiotic use or hospitalization. Assessment and plan discussed with my attending physician Dr. Kasie Willis (PGY-1)- Internal medicine resident Attending Provider Attestation/Addendum I have personally seen and examined the patient separately on the above date of service and discussed the plan of care with the resident. I reviewed the resident Dr. Ryland Willis consultation progress note and agree with the resident findings and plan in the note above and have also edited the documentation to reflect my findings and plan. A 73-year-old male with a past medical history of polysubstance abuse previously apparently quit a couple of years ago but still continues to use methamphetamine, active smoker with more than [id number] smoking history, remote history of peptic ulcer disease status post laparotomy, does not see doctors regularly presented to the emergency department for further evaluation of worsening shortness of breath as well as some vomiting, diarrhea over the past couple of days. Patient apparently signed out AMA from [facility] in [place] this afternoon after long wait in the emergency department. He is accompanied by his sister as well as father. Patient said that he has not been feeling well for the past few days in the his family took him to the emergency department in [place]. He did have some loose bowel movements and had some vomiting but also had worsening shortness of breath over the past couple of days. Denies any chest pain chest pressure orthopnea PND or dizziness or syncope or fall or palpitations. Patient endorsed to polysubstance abuse including cocaine methamphetamine marijuana and is a chronic smoker. Initially said that he did not take any meds recently but right arm confirmed using it recently. 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 Has been using inhaler for shortness of breath and wheezing for many years. Patient had elevated heart rate of 180 en route to the emergency department and was found to have SVT and he was given 1 dose of adenosine which she converted to questionable A-fib rhythm. An EKG was ordered which showed that the patient actually had multifocal atrial tachycardia and no evidence of any atrial fibrillation. Vitals in the emergency department showed blood pressure of 139 112 mmHg, heart rate of 128 bpm, respiration of 30/min and afebrile. WBC 15.4 hemoglobin 15.7 platelets are 236, BUN 34, creatinine 2.0, sodium 136, potassium 4.3, troponin initially 0.309 in the repeat was 0.562, glucose 112, LFTs normal except AST of 74 UA negative. EKG showed multifocal atrial tachycardia with some PACs and no acute ST-T changes. Chest x-ray showed COPD pattern without any acute consolidation or any kind of vascular congestion. Assessment and plan: 1. SVT-resolved with 1 dose of adenosine 2. Multifocal atrial tachycardia 3. Elevated troponins-mostly NSTEMI type II in the setting of supply/demand mismatch 4. Sepsis with unclear etiology-lactate was elevated at 4.1 on admission WBC 15.4 with left shift and also procalcitonin was elevated. 5. Mild COPD exacerbation 6. Acute kidney injury versus acute on chronic kidney disease stage III 7. Substance abuse history with history of cocaine as well as current use of methamphetamine 8. Chronic active smoker 9. History of peptic ulcer disease status post laparotomy 10. Essential hypertension Patient initially presented with SVT that resolved with 1 dose of adenosine on admission and later on was thought to be in atrial fibrillation. Repeat EKG did show the patient has multifocal atrial tachycardia with frequent PACs but no evidence of any atrial fibrillation. Recommend to start patient on metoprolol XL or Cardizem for rate control. No need of any anticoagulation at the present moment as there is no evidence of atrial fibrillation. Keep pressure greater than 4 magnesium greater than 2.0 at all times. Mildly elevated troponins at 0.2 and 0.5 and continue to trend the troponins for now. Patient denies any Chest pain chest pressure any previous history of CAD. Mostly NSTEMI type II in the setting of SVT, sepsis along with some COPD exacerbation. EKG without any acute ST changes or history of ischemia. Check echocardiogram to evaluate for LV function as well as RV function and any regional wall motion abnormalities. Check TSH A1c and lipid profile for further cardiac restratification. Can start aspirin and statin if lipid profile shows elevated LDL. Beta-haylee added to the regimen. Sepsis with unclear etiology-lactate was elevated at 4.1 on admission WBC 15.4 with left shift and also procalcitonin was elevated. Further workup of the sepsis along with a COPD exacerbation as well as acute kidney injury versus acute on chronic kidney disease stage IV as per the primary team. Management of rest of the medical conditions as per primary team and other consultants. Thank you for the consult and allowing me to participate in the care of the patient. Cardiology will continue to follow. Ricky Ferro M.D. Interventional Cardiology
--- NOTE | 2024-04-07 00:07 | PC.NURSE ---
REPORT GIVEN TO FELISA VANCE. ALL QUESTIONS ASKED AND ANSWERED. PATIENT TRANSFERRED TO ROOM ON 4L NC, WITH STAFF. NO DISTRESS NOTED AT TRANSFER.
[2024-04-07] MEDS: PIPER/TAZO 2.25 GM 2.25 GM/50 ML BAG IV ×2 (01:03→05:19)
[2024-04-07] MEDS: LEVALBUTEROL RT 0.63 MG/3 ML NEBU INH ×2 (01:18→07:19)
[2024-04-07] MEDS: IPRATROPIUM RT 0.5 MG/ 2.5 ML NEBU INH ×2 (01:18→07:19)
[2024-04-07] MEDS: HEPARIN SOD INJ 5000 UNIT/ML VIAL SC ×2 (05:22→21:26)
[2024-04-07 05:48] LABS: Basophils % (Auto) 0 % (0-2.5); Eosinophils % (Auto) 0 % (0-10); Hematocrit 44.1 % (41.0-53.0); Hemoglobin 14.6 g/dL (13.5-16.0); Immature Granulocytes % (Auto) 1 % (0-0); Immature Granulocytes Auto 0.06 Thou/mm3 (0.00-0.00); Lymphocytes % (Auto) 8 % (10-50); Mean Corpuscular HGB Conc 33.1 g/dl (31.0-37.0); Mean Corpuscular Hemoglobin 29.1 pg (25.0-35.0); Mean Corpuscular Volume 88 fL (80-100); Monocytes # (Auto) 1.2 Thou/mm3 (0.0-0.8); Monocytes % (Auto) 10 % (0-12); Neutrophils # (Auto) 10.1 Thou/mm3 (1.8-7.7); Neutrophils % (Auto) 82 % (37-80); Nucleated Red Blood Cell % 0 /100 WBC (0); Platelet Count 221 Thou/mm3 (140-440); RDW Standard Deviation 44.4 fL (35.1-43.9); Red Blood Count 5.02 Miln/mm3 (4.50-5.90); White Blood Count 12.4 Thou/mm3 (3.8-10.6)
[2024-04-07 06:06] LABS: Prothrombin Time 11.4 Seconds (9.0-12.2)
[2024-04-07 06:12] LABS: Alanine Aminotransferase 39 U/L (10-49); Albumin, Serum 3.9 gm/dL (3.4-4.8); Albumin/Globulin Ratio 1.7 (1.2-2.2); Alkaline Phosphatase 77 U/L (46-116); Anion Gap 10 (7-16); Aspartate Amino Transferase 102 U/L (0-34); BUN/Creatinine Ratio 22 Ratio (12-20); Bilirubin,Total 0.3 mg/dL (0.3-1.2); Blood Urea Nitrogen 40 mg/dL (9-23); Calcium 8.5 mg/dL (8.3-10.6); Calcium (Corrected) 8.6 mg/dL (8.5-10.1); Carbon Dioxide 23.7 mMol/L (20.0-31.0); Cardiac Risk Estimate 6.4 RATIO (4.0-6.7); Chloride 104 mMol/L (98-107); Cholesterol 89 mg/dL (132-200); Creatinine (Component) 1.8 mg/dL (0.6-1.3); Estimated Creatinine Clearance 41.3 mL/min (>60); Free T4 (Free Thyroxine) 1.08 ng/dL (0.89-1.76); Globulin 2.3 gm/dL (2.3-3.5); Glucose 109 mg/dL (74-106); HDL Cholesterol 14 mg/dL (40-60); LDL Cholesterol,Calculated 51 mg/dL (0-130); Magnesium 2.3 mg/dL (1.6-2.6); Osmolality,Calculated 286 (275-295); Phosphorous 3.1 mg/dL (2.4-5.1); Potassium 4.1 mMol/L (3.4-5.1); Sodium 138 mMol/L (136-145); Thyroid Stimulating Hormone 1.52 uIU/mL (0.55-4.78); Total Protein 6.2 gm/dL (5.7-8.2); Triglycerides 120 mg/dL (30-150); eGFR 40 See Note
[2024-04-07 06:25] LABS: Troponin I 0.414 ng/mL (0.0-0.045)
--- NOTE | 2024-04-07 06:35 | PC.NURSE ---
Dr. Melendez made aware of critical troponin of 0.414.
--- NOTE | 2024-04-07 10:27 | PC.SS ---
Donte Leahy is a 73-year-old male admitted to [facility] for AHRF, COPD, and Diarrhea. SS conducted bedside contact with the patient to complete initial assessment and to discuss discharge planning.? Patient confirmed demographic information. Patient identifies his father Lang Leahy [phone] as his surrogate decision maker. Patient resides at home alone. Pt states he is typically able to complete all ADL?s independently, no need for any source of DME. Pt currently does not possess a PCP, and is not interested in an appointment at this time. DC option discussed and pt wishes to return home. Pts family will provide transportation upon DC. No further intervention required at this time, criminal justice social worker would be available to address any further concerns. DC Plan: Home Contact: Lang Leahy [phone]
[2024-04-07] MEDS: cefTRIAXone/D5w 1gm IV premix 50 ML IV (12:40)
[2024-04-07] MEDS: AZITHROMYCIN 250 MG TABLET 500 MG PO (12:45)
--- NOTE | 2024-04-07 12:45 | PD.RESPRO ---
Documentation for date of: 04/07/24 Subjective Subjective Interval history: 02/04: no acute overnight events. Patient endorses significant improvement of his shortness of breath and resolution of his cough. Patient admits that his last crystal meth use was approximately 1 month ago and typically he uses it every 2 weeks. Although patient does not have a fever right now he does complain of mild sweating. Patient also states that yesterday he had watery diarrhea however this morning he had a bowel movement and it was formed stool. Patient denies any chest pain palpitations dizziness or syncope. Patient states he is able to lay flat without difficulty or shortness of breath. This morning labs shows leukocytosis, patient denies any dysuria or hematuria. Currently patient has no other complaints. Exam Vital Signs Temp Pulse Resp BP Pulse Ox O2 Del Method O2 Flow Rate 98.8 F 82 20 136/67 H 95 Room Air 3 04/07/24 12:00 04/07/24 12:00 04/07/24 12:04/07/24 12:00 04/07/24 12:00 04/07/24 12:00 04/07/24 07:34 Narrative Exam GENERAL: A&Ox3 . Awake, appears to be in respiratory distress NEURO: no focal neurological deficits HEENT: Atraumatic, Normocephalic. mucous membranes moist. Eyes open, symmetrical, & clear HEART: Normal Heart Sounds LUNGS: Clear to auscultation with no wheezing or crackles. ABDOMEN: soft, non-distended, non-tender, bowel sounds heard, no guarding or rebound tenderness SKIN: No Rash or ecchymoses EXTREMITIES: No edema, tenderness, able to move all 4 extremities, pedal pulses palpated Objective Labs 04/07/24 05:07 04/07/24 05:07 Labs: Laboratory Results - last 24 hr 04/06/24 04/06/24 04/06/24 15:00 18:35 20:55 WBC 15.4 H RBC 5.36 Hgb 15.7 Hct 47.2 MCV 88 MCH 29.3 MCHC 33.3 RDW Std Deviation 44.0 H Plt Count 236 Neut % (Auto) 87 H Lymph % (Auto) 3 L [place] % (Auto) 9 Eos % (Auto) 0 Baso % (Auto) 0 Neut # (Auto) 13.4 H Lymph # (Auto) 0.5 L [place] # (Auto) 1.4 H Eos # (Auto) 0.0 Baso # (Auto) 0.0 Immature Gran # (Auto) 0.16 H Absolute Nucleated RBC 0.00 Immature Gran % 1 H Nucleated RBC % 0 PT 11.8 INR 1.1 APTT 29.4 Sodium 136 Potassium 4.3 Chloride 102 Carbon Dioxide 23.9 Anion Gap 10 BUN 34 H Creatinine 2.0 H Estim Creat Clear Calc 37.2 L eGFR 35 L BUN/Creatinine Ratio 17 Glucose 112 H Calculated Osmolality 280 Lactic Acid 4.1 H* 2.4 H Calcium 8.9 Corrected Calcium 8.9 Phosphorus Magnesium 2.2 Total Bilirubin 0.5 AST 74 H ALT 32 Alkaline Phosphatase 91 Troponin I 0.309 H* B-Natriuretic Peptide 60 Total Protein 6.7 Albumin 4.1 Globulin 2.6 Albumin/Globulin Ratio 1.6 Triglycerides Cholesterol LDL Cholesterol, Calc HDL Cholesterol Cholesterol/HDL Ratio Lipase 26 Procalcitonin 5.95 H TSH Free T4 Ur Collection Type Urine Color Urine Clarity Urine pH Ur Specific [place] Urine Protein Urine Glucose (UA) Urine Ketones Urine Blood Urine Nitrite Urine Bilirubin Urine Urobilinogen (Auto) Ur Leukocyte Esterase Urine RBC Urine WBC Ur Squamous Epith Cells Urine Bacteria Stool for White Cells Stl C. diff Tox B Gene Cancelled 04/06/24 04/06/24 04/06/24 20:57 21:27 22:07 WBC RBC Hgb Hct MCV MCH MCHC RDW Std Deviation Plt Count Neut % (Auto) Lymph % (Auto) [place] % (Auto) Eos % (Auto) Baso % (Auto) Neut # (Auto) Lymph # (Auto) [place] # (Auto) Eos # (Auto) Baso # (Auto) Immature Gran # (Auto) Absolute Nucleated RBC Immature Gran % Nucleated RBC % PT INR APTT Sodium Potassium Chloride Carbon Dioxide Anion Gap BUN Creatinine Estim Creat Clear Calc eGFR BUN/Creatinine Ratio Glucose Calculated Osmolality Lactic Acid Calcium Corrected Calcium Phosphorus Magnesium Total Bilirubin AST ALT Alkaline Phosphatase Troponin I 0.562 H* D B-Natriuretic Peptide Total Protein Albumin Globulin Albumin/Globulin Ratio Triglycerides Cholesterol LDL Cholesterol, Calc HDL Cholesterol Cholesterol/HDL Ratio Lipase Procalcitonin TSH Free T4 Ur Collection Type Clean Catch Urine Color Yellow Urine Clarity Turbid A Urine pH 5.0 Ur Specific [place] 1.022 Urine Protein 1+ A Urine Glucose (UA) Negative Urine Ketones Negative Urine Blood 3+ A Urine Nitrite Negative Urine Bilirubin Negative Urine Urobilinogen (Auto) 2.0 Ur Leukocyte Esterase Positive Urine RBC 205 H Urine WBC 65 H Ur Squamous Epith Cells 1 Urine Bacteria 1+ A Stool for White Cells Negative Stl C. diff Tox B Gene 04/07/24 05:07 WBC 12.4 H RBC 5.02 Hgb 14.6 Hct 44.1 MCV 88 MCH 29.1 MCHC 33.1 RDW Std Deviation 44.4 H Plt Count 221 Neut % (Auto) 82 H Lymph % (Auto) 8 L [place] % (Auto) 10 Eos % (Auto) 0 Baso % (Auto) 0 Neut # (Auto) 10.1 H Lymph # (Auto) 1.0 [place] # (Auto) 1.2 H Eos # (Auto) 0.0 Baso # (Auto) 0.0 Immature Gran # (Auto) 0.06 H Absolute Nucleated RBC 0.00 Immature Gran % 1 H Nucleated RBC % 0 PT 11.4 INR 1.0 APTT Sodium 138 Potassium 4.1 Chloride 104 Carbon Dioxide 23.7 Anion Gap 10 BUN 40 H Creatinine 1.8 H Estim Creat Clear Calc 41.3 L eGFR 40 L BUN/Creatinine Ratio 22 H Glucose 109 H Calculated Osmolality 286 Lactic Acid Calcium 8.5 Corrected Calcium 8.6 Phosphorus 3.1 Magnesium 2.3 Total Bilirubin 0.3 AST 102 H ALT 39 Alkaline Phosphatase 77 Troponin I 0.414 H* B-Natriuretic Peptide Total Protein 6.2 Albumin 3.9 Globulin 2.3 Albumin/Globulin Ratio 1.7 Triglycerides 120 Cholesterol 89 L LDL Cholesterol, Calc 51 HDL Cholesterol 14 L Cholesterol/HDL Ratio 6.4 Lipase Procalcitonin TSH 1.52 Free T4 1.08 Ur Collection Type Urine Color Urine Clarity Urine pH Ur Specific [place] Urine Protein Urine Glucose (UA) Urine Ketones Urine Blood Urine Nitrite Urine Bilirubin Urine Urobilinogen (Auto) Ur Leukocyte Esterase Urine RBC Urine WBC Ur Squamous Epith Cells Urine Bacteria Stool for White Cells Stl C. diff Tox B Gene Quality Measures Quality Measures none Advance care planning discussed with:: patient Assessment & Plan Assessment Current Active Medications: Generic Name Dose Route Start Last Admin Trade Name Freq PRN Reason Stop Dose Admin Acetaminophen 650 mg 04/06/24 20:03 Acetaminophen 325 Mg Tablet PO 05/06/24 20:02 Q6H PRN PAIN OR FEVER > 101 Albuterol/Ipratropium 3 ml 04/07/24 10:41 Albuterol/Ipratropium (Duoneb) Rt Khadra 3 Ml Nebu INH 05/07/24 10:59 Q4HRRT PRN SOB or Wheeze Azithromycin 250 mg 04/08/24 09:00 Azithromycin 250 Mg Tablet PO 04/12/24 08:59 QDAY KAYLEE Heparin Sodium (Porcine) 5,000 unit 04/07/24 06:00 04/07/24 05:22 Heparin Sod Inj 5000 Unit/Ml Vial SC 04/21/24 05:59 5,000 unit Q8HR KAYLEE Administration Ceftriaxone Sodium/Dextrose 50 mls @ 100 mls/hr 04/07/24 11:43 Rocephin/D5w 1gm Iv Premix IV 04/14/24 11:42 QDAY KAYLEE Ondansetron HCl 4 mg 04/06/24 20:03 Ondansetron Inj 2 Mg/Ml Inj 2 Ml IV 05/06/24 20:02 Q6H PRN NAUSEA OR VOMITING Protocol Sennosides 2 tab 04/06/24 20:03 Senna Tablet PO 05/06/24 20:02 BID PRN CONSTIPATION Protocol Sodium Chloride 3 ml 04/06/24 16:50 Sodium Chloride Rt Khadra 0.9% 3 Ml Nebu INH 05/06/24 16:49 PRN PRN SOLN Plan Mr. Leahy is a 73-year-old male with past medical history significant for asthma, tobacco use disorder and substance abuse presented to the ED complaining of shortness of breath. #Acute hypoxemic respiratory failure #COPD exacerbation -Patient has been complaining of severe shortness of breath for the past 1 week days -He has smoked 1 pack/day cigarettes daily since the age of 18 -In the ED patient is placed on supplemental oxygen via nasal cannula currently saturating at 94% on 5 L of oxygen. Patient was also given nebulized breathing treatments which significantly resolved his wheezing. #Multifocal atrial tachycardia with PACs -patient's initial presentation was in supraventricular tachycardia and was given adenosine in the ED, patient was converted to multifocal atrial tachycardia. -Repeat EKG is evidence of multifocal atrial tachycardia with PACs -Recommend holding anticoagulation for now patient should be given beta-blockers. -Echocardiogram ordered # NSTEMI type II -Elevated troponins 0.309 -> 0.562, likely demand ischemia secondary to COPD exacerbation -Patient denies any chest pain , chest pressure or palpitations -Will continue to trend troponins every 6 hours # Acute kidney injury -Unable to compare to patient's baseline but patient's creatinine is 2.0 and GFR 35. Per primary hospitalist team will gentle hydration is ordered and if patient requires antibiotics they should be renally dosed will consider nephrology consult if patient's creatinine does not improve with hydration #Diarrhea- resolved -Patient complains of watery diarrhea that is unrelated to any recent food consumption and denies travel history or recent antibiotic use - Ordered stool WBC and C. difficile negative -Pt states his diarhea has resolved. This morning pt. states this morning he has a normal formed bowel movement #substance abuse -Pt admits to using crystal meth once in a while . Pt states his last use was 1 month ago. He typically snorts crystal meth once every 2 weeks. Assessment and plan discussed with my attending physician Dr. Kasie Willis ([id number])- Internal medicine resident Attending Provider Attestation/Addendum I have personally seen and examined the patient separately on the above date of service and discussed the plan of care with the resident. I reviewed the resident Dr. Ryland Willis consultation progress note and agree with the resident findings and plan in the note above and have also edited the documentation to reflect my findings and plan. A 73-year-old male with a past medical history of polysubstance abuse previously apparently quit a couple of years ago but still continues to use methamphetamine, active smoker with more than [id number] smoking history, remote history of peptic ulcer disease status post laparotomy, does not see doctors regularly presented to the emergency department for further evaluation of worsening shortness of breath as well as some vomiting, diarrhea over the past couple of days. Patient apparently signed out AMA from [facility] in [place] this afternoon after long wait in the emergency department. He is accompanied by his sister as well as father. Patient said that he has not been feeling well for the past few days in the his family took him to the emergency department in [place]. He did have some loose bowel movements and had some vomiting but also had worsening shortness of breath over the past couple of days. Denies any chest pain chest pressure orthopnea PND or dizziness or syncope or fall or palpitations. Patient endorsed to polysubstance abuse including cocaine methamphetamine marijuana and is a chronic smoker. Initially said that he did not take any meds recently but right arm confirmed using it recently. 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 Has been using inhaler for shortness of breath and wheezing for many years. Patient had elevated heart rate of 180 en route to the emergency department and was found to have SVT and he was given 1 dose of adenosine which she converted to questionable A-fib rhythm. An EKG was ordered which showed that the patient actually had multifocal atrial tachycardia and no evidence of any atrial fibrillation. Vitals in the emergency department showed blood pressure of 139 112 mmHg, heart rate of 128 bpm, respiration of 30/min and afebrile. WBC 15.4 hemoglobin 15.7 platelets are 236, BUN 34, creatinine 2.0, sodium 136, potassium 4.3, troponin initially 0.309 in the repeat was 0.562, glucose 112, LFTs normal except AST of 74 UA negative. EKG showed multifocal atrial tachycardia with some PACs and no acute ST-T changes. Chest x-ray showed COPD pattern without any acute consolidation or any kind of vascular congestion. Assessment and plan: 1. SVT-resolved with 1 dose of adenosine 2. Multifocal atrial tachycardia 3. Elevated troponins-mostly NSTEMI type II in the setting of supply/demand mismatch 4. Sepsis with unclear etiology-lactate was elevated at 4.1 on admission WBC 15.4 with left shift and also procalcitonin was elevated. 5. Mild COPD exacerbation 6. Acute kidney injury versus acute on chronic kidney disease stage III 7. Substance abuse history with history of cocaine as well as current use of methamphetamine 8. Chronic active smoker 9. History of peptic ulcer disease status post laparotomy 10. Essential hypertension Patient initially presented with SVT that resolved with 1 dose of adenosine on admission and later on was thought to be in atrial fibrillation. Repeat EKG did show the patient has multifocal atrial tachycardia with frequent PACs but no evidence of any atrial fibrillation. Recommend to start patient on metoprolol XL or Cardizem for rate control. No need of any anticoagulation at the present moment as there is no evidence of atrial fibrillation. Keep pressure greater than 4 magnesium greater than 2.0 at all times. Mildly elevated troponins at 0.2 and 0.5 and continue to trend the troponins for now. Patient denies any Chest pain chest pressure any previous history of CAD. Mostly NSTEMI type II in the setting of SVT, sepsis along with some COPD exacerbation. EKG without any acute ST changes or history of ischemia. Check echocardiogram to evaluate for LV function as well as RV function and any regional wall motion abnormalities. Check TSH A1c and lipid profile for further cardiac restratification. Can start aspirin and statin if lipid profile shows elevated LDL. Beta-haylee added to the regimen. Sepsis with unclear etiology-lactate was elevated at 4.1 on admission WBC 15.4 with left shift and also procalcitonin was elevated. Further workup of the sepsis along with a COPD exacerbation as well as acute kidney injury versus acute on chronic kidney disease stage IV as per the primary team. 04/07/2024: Patient seen and examined at the bedside. Patient feels much better and his shortness of breath is better Telemetry reviewed and patient still is in multifocal atrial tachycardia but frequent PACs. Patient also had the SVT. Given his history of COPD metoprolol XL was not given and recommend to start the patient on Cardizem 30 mg p.o. 3 times daily for now. Keep potassium greater than 4 and magnesium greater than 2.0. Troponins peaked around 0.5 to yesterday and then have been downtrending. As noted EKG without any acute changes in patient denied any Chest pain or chest pressure. NSTEMI type II with supply/demand mismatch in the setting of SVT as well as the sepsis. TSH 1.2 and free T41.08. HDL 40 and LDL 51 cholesterol 89 TG 120. BNP 16. Check A1c for further cardiac restratification. Lactate decreased from 4.1-2.4. Continue aggressive treatment for the sepsis as well as the COPD exacerbation as per the primary team. Management of rest of the medical conditions as per primary team and other consultants. Thank you for the consult and allowing me to participate in the care of the patient. Cardiology will continue to follow. Ricky Ferro M.D. Interventional Cardiology
[2024-04-07] MEDS: ALBUTEROL/IPRATROPIUM (Duoneb) RT SOL 3 ML NEBU INH (13:16)
--- NOTE | 2024-04-07 13:21 | PD.RESPRO ---
Documentation for date of: 04/07/24 Subjective Subjective Interval history: Patient seen at bedside. No acute overnight events. He is a 73-year-old male with a past medical history of asthma and polysubstance use with a 30-year pack history of smoking who presented to the ED on 04/06/2024 with complaints of shortness of breath of 2 weeks duration and watery diarrhea of 3 days duration. Patient was admitted for management of acute hypoxic respiratory failure secondary to COPD exacerbation as well as sepsis secondary to UTI found on urinalysis. At bedside today, patient's this is a tripod position, saturating 96% on 1 L of oxygen and on examination has some wheezing. Will continue breathing treatments and ceftriaxone plus azithromycin for UTI and coverage of possible Legionella. Troponin level was also elevated on admission but is now downtrending. The patient additionally had SVT on arrival, received adenosine. Recent ECG/telemetry shows sinus rhythm with premature atrial complexes. 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 Eyes open, symmetrical, & clear CARDIO: No chest pain on palpation. Heart RRR, no obvious murmurs PULM: No coughing, a little tachypneic. Wheezing heard bilaterally, saturating 98% on 1 L of oxygen. GI: Abdomen soft, nondistended, no pain on palpation. 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 SKIN/MSK/EXT: No wounds/rashes/edema/amputations, no pain on palpation. Pedal pulses present B/L Objective Labs 04/08/24 05:18 04/08/24 05:18 Labs: Laboratory Results - last 24 hr 04/06/24 04/06/24 04/06/24 15:00 18:35 20:55 WBC 15.4 H RBC 5.36 Hgb 15.7 Hct 47.2 MCV 88 MCH 29.3 MCHC 33.3 RDW Std Deviation 44.0 H Plt Count 236 Neut % (Auto) 87 H Lymph % (Auto) 3 L [place] % (Auto) 9 Eos % (Auto) 0 Baso % (Auto) 0 Neut # (Auto) 13.4 H Lymph # (Auto) 0.5 L [place] # (Auto) 1.4 H Eos # (Auto) 0.0 Baso # (Auto) 0.0 Immature Gran # (Auto) 0.16 H Absolute Nucleated RBC 0.00 Immature Gran % 1 H Nucleated RBC % 0 PT 11.8 INR 1.1 APTT 29.4 Sodium 136 Potassium 4.3 Chloride 102 Carbon Dioxide 23.9 Anion Gap 10 BUN 34 H Creatinine 2.0 H Estim Creat Clear Calc 37.2 L eGFR 35 L BUN/Creatinine Ratio 17 Glucose 112 H Calculated Osmolality 280 Lactic Acid 4.1 H* 2.4 H Calcium 8.9 Corrected Calcium 8.9 Phosphorus Magnesium 2.2 Total Bilirubin 0.5 AST 74 H ALT 32 Alkaline Phosphatase 91 Troponin I 0.309 H* B-Natriuretic Peptide 60 Total Protein 6.7 Albumin 4.1 Globulin 2.6 Albumin/Globulin Ratio 1.6 Triglycerides Cholesterol LDL Cholesterol, Calc HDL Cholesterol Cholesterol/HDL Ratio Lipase 26 Procalcitonin 5.95 H TSH Free T4 Ur Collection Type Urine Color Urine Clarity Urine pH Ur Specific [place] Urine Protein Urine Glucose (UA) Urine Ketones Urine Blood Urine Nitrite Urine Bilirubin Urine Urobilinogen (Auto) Ur Leukocyte Esterase Urine RBC Urine WBC Ur Squamous Epith Cells Urine Bacteria Stool for White Cells Stl C. diff Tox B Gene Cancelled 04/06/24 04/06/24 04/06/24 20:57 21:27 22:07 WBC RBC Hgb Hct MCV MCH MCHC RDW Std Deviation Plt Count Neut % (Auto) Lymph % (Auto) [place] % (Auto) Eos % (Auto) Baso % (Auto) Neut # (Auto) Lymph # (Auto) [place] # (Auto) Eos # (Auto) Baso # (Auto) Immature Gran # (Auto) Absolute Nucleated RBC Immature Gran % Nucleated RBC % PT INR APTT Sodium Potassium Chloride Carbon Dioxide Anion Gap BUN Creatinine Estim Creat Clear Calc eGFR BUN/Creatinine Ratio Glucose Calculated Osmolality Lactic Acid Calcium Corrected Calcium Phosphorus Magnesium Total Bilirubin AST ALT Alkaline Phosphatase Troponin I 0.562 H* D B-Natriuretic Peptide Total Protein Albumin Globulin Albumin/Globulin Ratio Triglycerides Cholesterol LDL Cholesterol, Calc HDL Cholesterol Cholesterol/HDL Ratio Lipase Procalcitonin TSH Free T4 Ur Collection Type Clean Catch Urine Color Yellow Urine Clarity Turbid A Urine pH 5.0 Ur Specific [place] 1.022 Urine Protein 1+ A Urine Glucose (UA) Negative Urine Ketones Negative Urine Blood 3+ A Urine Nitrite Negative Urine Bilirubin Negative Urine Urobilinogen (Auto) 2.0 Ur Leukocyte Esterase Positive Urine RBC 205 H Urine WBC 65 H Ur Squamous Epith Cells 1 Urine Bacteria 1+ A Stool for White Cells Negative Stl C. diff Tox B Gene 04/07/24 05:07 WBC 12.4 H RBC 5.02 Hgb 14.6 Hct 44.1 MCV 88 MCH 29.1 MCHC 33.1 RDW Std Deviation 44.4 H Plt Count 221 Neut % (Auto) 82 H Lymph % (Auto) 8 L [place] % (Auto) 10 Eos % (Auto) 0 Baso % (Auto) 0 Neut # (Auto) 10.1 H Lymph # (Auto) 1.0 [place] # (Auto) 1.2 H Eos # (Auto) 0.0 Baso # (Auto) 0.0 Immature Gran # (Auto) 0.06 H Absolute Nucleated RBC 0.00 Immature Gran % 1 H Nucleated RBC % 0 PT 11.4 INR 1.0 APTT Sodium 138 Potassium 4.1 Chloride 104 Carbon Dioxide 23.7 Anion Gap 10 BUN 40 H Creatinine 1.8 H Estim Creat Clear Calc 41.3 L eGFR 40 L BUN/Creatinine Ratio 22 H Glucose 109 H Calculated Osmolality 286 Lactic Acid Calcium 8.5 Corrected Calcium 8.6 Phosphorus 3.1 Magnesium 2.3 Total Bilirubin 0.3 AST 102 H ALT 39 Alkaline Phosphatase 77 Troponin I 0.414 H* B-Natriuretic Peptide Total Protein 6.2 Albumin 3.9 Globulin 2.3 Albumin/Globulin Ratio 1.7 Triglycerides 120 Cholesterol 89 L LDL Cholesterol, Calc 51 HDL Cholesterol 14 L Cholesterol/HDL Ratio 6.4 Lipase Procalcitonin TSH 1.52 Free T4 1.08 Ur Collection Type Urine Color Urine Clarity Urine pH Ur Specific [place] Urine Protein Urine Glucose (UA) Urine Ketones Urine Blood Urine Nitrite Urine Bilirubin Urine Urobilinogen (Auto) Ur Leukocyte Esterase Urine RBC Urine WBC Ur Squamous Epith Cells Urine Bacteria Stool for White Cells Stl C. diff Tox B Gene Quality Measures Quality Measures none Advance care planning discussed with:: patient Assessment & Plan Assessment Current Active Medications: Generic Name Dose Route Start Last Admin Trade Name Freq PRN Reason Stop Dose Admin Acetaminophen 650 mg 04/06/24 20:03 Acetaminophen 325 Mg Tablet PO 05/06/24 20:02 Q6H PRN PAIN OR FEVER > 101 Albuterol/Ipratropium 3 ml 04/07/24 10:41 Albuterol/Ipratropium (Duoneb) Rt Khadra 3 Ml Nebu INH 05/07/24 10:59 Q4HRRT PRN SOB or Wheeze Azithromycin 250 mg 04/08/24 09:00 Azithromycin 250 Mg Tablet PO 04/12/24 08:59 QDAY KAYLEE Heparin Sodium (Porcine) 5,000 unit 04/07/24 06:00 04/07/24 05:22 Heparin Sod Inj 5000 Unit/Ml Vial SC 04/21/24 05:59 5,000 unit Q8HR KAYLEE Administration Ceftriaxone Sodium/Dextrose 50 mls @ 100 mls/hr 04/07/24 11:43 04/07/24 12:40 Rocephin/D5w 1gm Iv Premix IV 04/14/24 11:42 100 mls/hr QDAY KAYLEE Administration Ondansetron HCl 4 mg 04/06/24 20:03 Ondansetron Inj 2 Mg/Ml Inj 2 Ml IV 05/06/24 20:02 Q6H PRN NAUSEA OR VOMITING Protocol Sennosides 2 tab 04/06/24 20:03 Senna Tablet PO 05/06/24 20:02 BID PRN CONSTIPATION Protocol Sodium Chloride 3 ml 04/06/24 16:50 Sodium Chloride Rt Khadra 0.9% 3 Ml Nebu INH 05/06/24 16:49 PRN PRN SOLN Plan Summary: The patient is a 73-year-old male with a past medical history of asthma and polysubstance use with a 30-year pack history of smoking presented to the ED on 04/06/2024 with complaints of shortness of breath of 2 weeks duration and watery diarrhea for 3 days duration. #Acute hypoxic respiratory failure #Likely COPD exacerbation The patient presented with a 2-week history of shortness of breath. When asked, he does admits that he has a 65-hnii-wyig smoking history and currently still smokes tobacco as well as uses other substances. Although he has never had a formal diagnosis of COPD, the patient states he was told he has asthma and uses a rescue albuterol inhaler. On admission, patient was noted to be hypoxic and had to be placed on oxygen. Chest x-ray showed bibasilar bronchitis pattern and the patient was started on breathing treatments. Today, he is doing better but still on 1 L of oxygen and has some wheezing. Plan: -Continue breathing treatments -Continue azithromycin for 4 more days -Oxygen titration #Sepsis secondary to UTI #Diarrhea On admission, patient met 2/4 SIRS criteria. He had reported 3-day history of watery diarrhea. The patient was started on IV Zosyn UA was done which was positive for UTI. WBC downtrending today Plan: -De-escalate antibiotics to IV ceftriaxone -Pending urine and stool culture -Continue to monitor CBC #Arrhythmias #Supraventricular tachycardia-terminated #PACs On admission, the patient was noted to have SVT which likely self terminated. Repeat EKG showed sinus tachycardia with multifocal atrial tachycardia. Today, bedside/telemetry review, the patient does have sinus rhythm with premature atrial complexes. Cardiology was consulted and echocardiogram was ordered. Plan: -Pending echocardiogram -Continue to monitor telemetry #Elevated troponin levels #NSTEMI, likely type II On admission, the patient had elevated troponin levels. However he denied any chest pain but troponin was trended. Troponin has now peaked and is downtrending. #Acute kidney injury #Versus chronic kidney disease The patient on admission had elevated BUN and creatinine of 2.0. As there is no previous admission here, there is no baseline creatinine to compare with. Patient however denies ever having any renal disease. Based on the fact that the patient did have 3-day history of diarrhea, this is likely to be prerenal azotemia due to decreased oral intake. Creatinine today has slightly improved, 1.8 following rehydration. Plan: -Continue to encourage hydration -Avoid nephrotoxic medications -Renally dose all medications Health maintenance: Dispo: MedTele Diet: Renal DVT: SC Heparin Resendez: None Lines: Peripheral Code: Full Case was discussed with Dr Julien PGY-2 and attending physician, Dr Cait Jose MD PGY-1 Disclaimer: This note was dictated by speech recognition. Minor errors in keyboard instrument tuner may be present due to voice recognition software. Attending Provider Attestation/Addendum I reviewed labs, imaging, EKG, home medications and prior available records. Face to face evaluation was performed by me. I have personally examined the patient and discussed assessment and plan with the IM team. I reviewed the resident note and agree with the plan with exceptions as below. Acute hypoxic respiratory failure Sepsis Acute UTI Possible pneumonia Elevated troponin SVT BHARATH He is on 1 L nasal cannula Continue nebulizing treatment. No corticosteroids in the setting of sepsis Changed antibiotics to ceftriaxone/azithromycin. Follow-up cultures Sent Legionella test Troponin peaked. Management of sepsis as above Heart rate is stable. Continue telemetry. Ordered echocardiogram Monitor kidney function. Avoid nephrotoxins. Renally dosed medications
[2024-04-07] MEDS: hydrOXYzine HCL 10 MG TABLET PO (14:16)
[2024-04-07 14:55] LABS: Troponin I 0.267 ng/mL (0.0-0.045)
[2024-04-08] VITALS (8 sets, daily range): BP systolic 106–135; BP diastolic 52–80; PULSE 80–107; RESP 18–24; TEMP 36.3–36.4; O2SAT 95–100; BMI 27.1
--- NOTE | 2024-04-08 04:06 | PC.NURSE ---
Dr. Cortez made aware of tele monitor showing ST 101 with frequent PAC and atrial bigeminy. No new order.
[2024-04-08] MEDS: DILTIAZEM 30 MG TABLET PO (05:23)
[2024-04-08] MEDS: HEPARIN SOD INJ 5000 UNIT/ML VIAL SC (05:25)
[2024-04-08 05:42] LABS: Basophils % (Auto) 0 % (0-2.5); Eosinophils % (Auto) 0 % (0-10); Hematocrit 41.2 % (41.0-53.0); Hemoglobin 13.9 g/dL (13.5-16.0); Immature Granulocytes % (Auto) 0 % (0-0); Immature Granulocytes Auto 0.04 Thou/mm3 (0.00-0.00); Lymphocytes # (Auto) 1.1 Thou/mm3 (1.0-4.8); Lymphocytes % (Auto) 13 % (10-50); Mean Corpuscular HGB Conc 33.7 g/dl (31.0-37.0); Mean Corpuscular Hemoglobin 29.4 pg (25.0-35.0); Mean Corpuscular Volume 87 fL (80-100); Monocytes # (Auto) 0.9 Thou/mm3 (0.0-0.8); Monocytes % (Auto) 10 % (0-12); Neutrophils # (Auto) 6.9 Thou/mm3 (1.8-7.7); Neutrophils % (Auto) 77 % (37-80); Nucleated Red Blood Cell % 0 /100 WBC (0); Platelet Count 203 Thou/mm3 (140-440); RDW Standard Deviation 44.2 fL (35.1-43.9); Red Blood Count 4.73 Miln/mm3 (4.50-5.90); White Blood Count 8.9 Thou/mm3 (3.8-10.6)
[2024-04-08 06:13] LABS: Alanine Aminotransferase 89 U/L (10-49); Albumin, Serum 3.6 gm/dL (3.4-4.8); Albumin/Globulin Ratio 1.6 (1.2-2.2); Alkaline Phosphatase 66 U/L (46-116); Anion Gap 7 (7-16); Aspartate Amino Transferase 208 U/L (0-34); BUN/Creatinine Ratio 23 Ratio (12-20); Bilirubin,Total 0.3 mg/dL (0.3-1.2); Blood Urea Nitrogen 25 mg/dL (9-23); Calcium 8.2 mg/dL (8.3-10.6); Calcium (Corrected) 8.5 mg/dL (8.5-10.1); Carbon Dioxide 26.7 mMol/L (20.0-31.0); Chloride 102 mMol/L (98-107); Creatinine (Component) 1.1 mg/dL (0.6-1.3); Estimated Creatinine Clearance 67.6 mL/min (>60); Globulin 2.3 gm/dL (2.3-3.5); Glucose 104 mg/dL (74-106); Magnesium 2.2 mg/dL (1.6-2.6); Osmolality,Calculated 276 (275-295); Phosphorous 1.6 mg/dL (2.4-5.1); Potassium 3.4 mMol/L (3.4-5.1); Sodium 136 mMol/L (136-145); Total Protein 5.9 gm/dL (5.7-8.2); eGFR > 60 See Note
--- NOTE | 2024-04-08 06:19 | PC.NURSE ---
Addendum entered by Isacc Saini RN 04/08/24 06:25: Dr. Arellano made aware. Original Note: Pt. removed tele monitor. RN attempted to reconnect patient, but patient said he does not want it. RN will notify hospitalists.
--- NOTE | 2024-04-08 06:30 | PC.NURSE ---
MRSA of the nose returned positive. RN will notify hospitalists.
[2024-04-08] MEDS: NAPH,KPH MBDB 1 PACKET (1.5 GM) 2 PACKET PO (08:15)
[2024-04-08] MEDS: POTASSIUM CHLORIDE 20 mEq TABCR 40 MEQ PO (08:15)
[2024-04-08 08:29] LABS: Glucose Estimated Average 120 mg/dL (80-131); Hemoglobin A1C 5.8 % Hgb (4.8-6.0)
[2024-04-08] MEDS: AZITHROMYCIN 250 MG TABLET PO (09:50)
[2024-04-08] MEDS: cefTRIAXone/D5w 1gm IV premix 50 ML IV (09:50)
[2024-04-08] MEDS: ALBUTEROL/IPRATROPIUM (Duoneb) RT SOL 3 ML NEBU INH (10:53)
--- NOTE | 2024-04-08 12:52 | ESPR_ITS ---
Documentation for date of: 04/08/24 Subjective Subjective Interval history: 04/08: no acute overnight events reported. Pt is seen and examined at bedside. Pt is advised to follow up outpatietn with speech communication professor to go over echo results and further management. Pt has no complains. denies SOB, chest pain or palpitations. Exam Vital Signs Temp Pulse Resp BP Pulse Ox O2 Del Method O2 Flow Rate 97.3 F 94 22 H 120/79 95 Room Air 3 04/08/24 12:00 04/08/24 12:00 04/08/24 12:04/08/24 12:04/08/24 12:04/08/24 12:04/08/24 00:30 Narrative Exam GENERAL: A&Ox3 . Awake, appears to be in respiratory distress NEURO: no focal neurological deficits HEENT: Atraumatic, Normocephalic. mucous membranes moist. Eyes open, symmetrical, & clear HEART: Normal Heart Sounds LUNGS: Clear to auscultation with no wheezing or crackles. ABDOMEN: soft, non-distended, non-tender, bowel sounds heard, no guarding or rebound tenderness SKIN: No Rash or ecchymoses EXTREMITIES: No edema, tenderness, able to move all 4 extremities, pedal pulses palpated Objective Labs 04/08/24 05:18 04/08/24 05:18 Labs: Laboratory Results - last 24 hr 04/07/24 04/08/24 14:12 05:18 WBC 8.9 RBC 4.73 Hgb 13.9 Hct 41.2 MCV 87 MCH 29.4 MCHC 33.7 RDW Std Deviation 44.2 H Plt Count 203 Neut % (Auto) 77 Lymph % (Auto) 13 [place] % (Auto) 10 Eos % (Auto) 0 Baso % (Auto) 0 Neut # (Auto) 6.9 Lymph # (Auto) 1.1 [place] # (Auto) 0.9 H Eos # (Auto) 0.0 Baso # (Auto) 0.0 Immature Gran # (Auto) 0.04 H Absolute Nucleated RBC 0.00 Immature Gran % 0 Nucleated RBC % 0 Sodium 136 Potassium 3.4 D Chloride 102 Carbon Dioxide 26.7 Anion Gap 7 BUN 25 H Creatinine 1.1 D Estim Creat Clear Calc 67.6 eGFR > 60 BUN/Creatinine Ratio [address]ucose [address] Glu mg/dL 120 Hemoglobin A1c 5.8 Calculated Osmolality 276 Calcium 8.2 L Corrected Calcium 8.5 Phosphorus 1.6 L Magnesium 2.2 Total Bilirubin 0.3 AST 208 H ALT 89 H Alkaline Phosphatase 66 Troponin I 0.267 H* Total Protein 5.9 Albumin 3.6 Globulin 2.3 Albumin/Globulin Ratio 1.6 Quality Measures Quality Measures none Advance care planning discussed with:: patient Assessment & Plan Assessment Current Active Medications: Generic Name Dose Route Start Last Admin Trade Name Freq PRN Reason Stop Dose Admin Acetaminophen 650 mg 04/06/24 20:03 Acetaminophen 325 Mg Tablet PO 05/06/24 20:02 Q6H PRN PAIN OR FEVER > 101 Albuterol/Ipratropium 3 ml 04/07/24 10:41 Albuterol/Ipratropium (Duoneb) Rt Khadra 3 Ml Nebu INH 05/07/24 10:59 Q4HRRT PRN SOB or Wheeze Azithromycin 250 mg 04/08/24 09:00 04/08/24 09:50 Azithromycin 250 Mg Tablet PO 04/12/24 08:59 250 mg QDAY KAYLEE Administration Diltiazem HCl 30 mg 04/08/24 02:10 04/08/24 05:23 Diltiazem 30 Mg Tablet PO 05/08/24 02:09 30 mg TID KAYLEE Administration Heparin Sodium (Porcine) 5,000 unit 04/07/24 06:00 04/08/24 05:25 Heparin Sod Inj 5000 Unit/Ml Vial SC 04/21/24 05:59 5,000 unit Q8HR KAYLEE Administration Ceftriaxone Sodium/Dextrose 50 mls @ 100 mls/hr 04/07/24 11:43 04/08/24 09:50 Rocephin/D5w 1gm Iv Premix IV 04/14/24 11:42 100 mls/hr QDAY KAYLEE Administration Nicotine 21 mg 04/08/24 10:15 Nicotine Patch 21 Mg/24 Hr Patch.Td24 TOP 05/08/24 10:14 QDAY KAYLEE Ondansetron HCl 4 mg 04/06/24 20:03 Ondansetron Inj 2 Mg/Ml Inj 2 Ml IV 05/06/24 20:02 Q6H PRN NAUSEA OR VOMITING Protocol Sennosides 2 tab 04/06/24 20:03 Senna Tablet PO 05/06/24 20:02 BID PRN CONSTIPATION Protocol Sodium Chloride 3 ml 04/06/24 16:50 Sodium Chloride Rt Khadra 0.9% 3 Ml Nebu INH 05/06/24 16:49 PRN PRN SOLN Plan Mr. Leahy is a 73-year-old male with past medical history significant for asthma, tobacco use disorder and substance abuse presented to the ED complaining of shortness of breath. #Acute hypoxemic respiratory failure #COPD exacerbation #Sepsis -Patient has been complaining of severe shortness of breath for the past 1 week days -He has smoked 1 pack/day cigarettes daily since the age of 18 -In the ED patient is placed on supplemental oxygen via nasal cannula currently saturating at 94% on 5 L of oxygen. Patient was also given nebulizer breathing treatments which significantly resolved his wheezing. --On admission patient was septic with unclear etiology. Initial lactates were at 4.1 and repeat lactate was 2.4 patient also had leukocytosis which has down trended with the start of antibiotics. Patient was started on antibiotics for broad coverage. -recommend treatment as per primary hospitalist team patient will be discharged with oral antibiotics #Multifocal atrial tachycardia with PACs -On admission patient had SVT patient received 1 dose of adenosine in the ED the day of admission patient was then converted to A-fib and repeat EKG showed multifocal atrial tachycardia with frequent PACs -Patient to take Cardizem 120 Mg CD daily upon discharge -Repeat EKG is evidence of multifocal atrial tachycardia with PACs -Echocardiogram is done on 04/08, patient will need to follow-up outpatient with the speech communication professor to review echo results -Keep pressure greater than 4 magnesium greater than 2.0 at all times. -Patient does not need anticoagulation at this time since patient is not in A- fib # NSTEMI type II -Elevated troponins 0.309 -> 0.562, likely demand ischemia secondary to COPD exacerbation -Patient denies any chest pain , chest pressure or palpitations --Elevated troponins could likely be secondary to SVT, sepsis or COPD exacerbation. EKG findings did not show any ST or T wave changes and patient does not have history of NM. # Acute kidney injury- improved -Unable to compare to patient's baseline but patient's creatinine is 2.0 and GFR 35. Per primary hospitalist team will gentle hydration is ordered and if patient requires antibiotics they should be renally dosed will consider nephrology consult if patient's creatinine does not improve with hydration -Creatinine on 04/08 is 1.1, BUN 25, EGFR above 60 #Diarrhea- resolved -Patient complains of watery diarrhea that is unrelated to any recent food consumption and denies travel history or recent antibiotic use - Ordered stool WBC and C. difficile negative -Pt states his diarhea has resolved. This morning pt. states this morning he has a normal formed bowel movement #substance abuse -Pt admits to using crystal meth once in a while . Pt states his last use was 1 month ago. He typically snorts crystal meth once every 2 weeks. Assessment and plan discussed with my attending physician Dr. Kasie Willis (PGY-1)- Internal medicine resident Attending Provider Attestation/Addendum I have personally seen and examined the patient separately on the above date of service and discussed the plan of care with the resident. I reviewed the resident Dr. Ryland Willis consultation progress note and agree with the resident findings and plan in the note above and have also edited the documentation to reflect my findings and plan. Echocardiogram was completed this morning with patient did not want to wait for his echo results and wanted to get discharge. Echocardiogram showed poor and suboptimal images normal LV size and thickness. Mild LV dysfunction with estimated EF of 40 to 45%. Normal RV size and function. Trace TR. Moderate aortic valve sclerosis without stenosis however AV velocity method been underestimated and mild to moderate MAC. Patient presented with SVT which she later converted to a multifocal atrial tachycardia after a dose of adenosine. Patient was started on diltiazem CD1 20 mg once daily and for now and was recommended to follow-up with cardiology as outpatient. Patient also was diagnosed with COPD exacerbation and possible atypical pneumonia for which she was started on antibiotics during the admission. Patient did have mild elevation of troponins which is mostly NSTEMI type II in the setting of acute infection. Troponins peaked at 0.562. EKG did not show any acute ST-T changes history of any ischemia. Patient does have a history of significant substance abuse including meth and marijuana and other drugs previously. Patient recommended to quit all the drugs and counseled extensively for the same. We also counseled to quit smoking and that provide the patient with nicotine patch. Patient explained about the need to follow-up with cardiology as outpatient for further ischemic evaluation. Ricky Ferro M.D. Interventional Cardiology
[2024-04-08] MEDS: NICOTINE PATCH 21 MG/24 HR PATCH.TD24 TOP (13:10)
--- NOTE | 2024-04-08 14:11 | ESDS_ITS ---
<Statement entered by Albaro Menon MD - 04/08/24 14:20> Patient was examined with the team including attending physician. Note reviewed, I agree with the discharge plan as documented. - Albaro Menon M.D. PGY2 Planned Discharge Date 04/08/24 DS: Providers Provider Date of admission: 04/06/24 20:03 Primary care physician: Physician No Primary/Family Admitting Provider: Abimael Astudillo MD Attending Provider on Admission: Abimael Astudillo MD Consults: 04/06/24 22:50 Consult to Cardiology Routine Comment: Consulting Provider: Ricky Ferro 04/07/24 00:38 Referral Respiratory Therapy Routine Comment: Attending Provider on DC: Jazmyne Jose MD Discharging Provider: Jazmyne Jose MD DS: Diagnosis Problem List Completed Was Problem List Reviewed/Reconciled?: Yes Hospital Course Hospital Course Hospital course: The patient is a 73-year-old male with a past medical history of asthma and polysubstance use with a 30-year pack history of smoking who presented to the ED on 04/06/2024 with complaints of shortness of breath of 2 weeks duration and watery diarrhea of 3 days duration. The patient was admitted for management of acute hypoxic respiratory failure secondary to COPD found on urinalysis. He was started on breathing treatments as well as ceftriaxone for UTI, covered with azithromycin for possible atypical pneumonia. Additionally, the patient had elevated troponins on admission which peaked and started to downtrend. In the ED, the patient was said to have been in SVT which self terminated 1 (corrected from previous notes which said adenosine was given) and repeat EKG showed sinus rhythm with premature atrial complexes. Cardiology was consulted and the patient had an echocardiogram done which showed mild LV dysfunction with EF 40 to 45%, mild mitral regurgitation and grade 1 diastolic dysfunction with AV sclerosis without stenosis. Today, the patient is clinically and hemodynamically stable, saturating 98% on room air and has been medically cleared for discharge by cardiology. He is recommended to follow-up with his PCP within 1 week of discharge and glaze carrier Dr. Ferro within 2 weeks of discharge. Per cardiology, the patient is prescribed diltiazem CD1 20 mg daily. He will also continue azithromycin to 50 mg for 3 more days. For COPD management, he was prescribed Trelegy. #Acute hypoxic respiratory failure #COPD exacerbation #SIRS #Sepsis ruled out #Urinary Tract Infection #Arrhythmias #Type II NSTEMI #Acute kidney injury #New onset HFmrEF Discharge instructions: Follow up with your PCP within one week of discharge Follow up with your glaze carrier within two weeks of discharge Take azithromycin 250mg for 3 more days Take diltiazem 120mg for heart rate control Use inhaler as prescribed Return to the ED if your symptoms worsen Case was discussed with Dr Menon PGY-2 and attending physician, Dr Cait Jose MD PGY-1 Disclaimer: This note was dictated by speech recognition. Minor errors in irrigation equipment mechanic may be present due to voice recognition software. Status at Discharge Overall status at discharge: patient is progressing back to baseline Time Spent with Patient Time attestation: Total time spent providing and/or coordinating discharge services: Time spent: Greater than 30 minutes Exam Vital Signs Temp Pulse Resp BP Pulse Ox O2 Del Method O2 Flow Rate 97.3 F 94 22 H 120/79 95 Room Air 3 04/08/24 12:00 04/08/24 12:00 04/08/24 12:00 04/08/24 12:00 04/08/24 12:00 04/08/24 12:00 04/08/24 00:30 Narrative Exam GENERAL: AAOX3 NEURO: BURLAP BAG SEWER grossly intact, moves extremities x4 HEENT: Moist mucosa. Eyes open, symmetrical, & clear CARDIO: No chest pain on palpation. Heart RRR, no obvious murmurs PULM: No noted coughing/dyspnea. Minimal wheezing GI: Abdomen soft, nondistended, no pain on palpation. BSx4 URO/CASH POSTING SPECIALIST:: No further abnormalities noted. SKIN/MSK/EXT: No wounds/rashes/edema/amputations, no pain on palpation. Pedal pulses present B/L Discharge Plan Plan Patient Disposition: HOME (Self Care) Prescriptions/Referrals Prescriptions/Med Rec: New azithromycin 250 mg Tablet 250 mg PO QDAY 3 Days Qty: 3 0RF diltiazem HCl 120 mg capsule,extended release 24hr 120 mg PO QDAY 30 Days Qty: 30 0RF Trelegy Ellipta 100-62.5-25 mcg blister with device 2 inh inhalation BID Qty: 60 0RF lisinopril 5 mg tablet 5 mg PO QDAY 30 Days Qty: 30 0RF Referrals: Ricky Ferro MD [Physician] - No Primary/Family,Physician [Primary Care Provider] - Patient/Caregiver Discharge Instructions Other Discharge Activity Instructions:: Follow up with your PCP within one week of discharge Follow up with your glaze carrier within two weeks of discharge Take azithromycin 250mg for 3 more days Take diltiazem 120mg for heart rate control Use inhaler as prescribed Return to the ED if your symptoms worsen Education Materials: COPD: Using Inhalers Print Language: German Stand Alone Forms: Shirley Award Info., Patient Portal Info Letter Discharge Order Discharge Orders: Discharge (Routine); Ordered 04/08/24 Ordered By: Jazmyne Jose Quality Discharge Quality Measures VTE prophylaxis Attestestation Attestation I reviewed labs, imaging, EKG, home medications and prior available records. Face to face evaluation was performed by me. I have personally examined the patient and discussed assessment and plan with the IM team. I reviewed the resident note and agree with the plan with exceptions as below. Acute hypoxic respiratory failure COPD exacerbation Sepsis: Ruled out Acute UTI: Ruled out Possible pneumonia: Ruled out Elevated troponin SVT BHARATH, resolved He is on room air Continue Trelegy for COPD Finished a course of antibiotics. His SIRS is likely secondary to COPD exacerbation Troponin peaked. Management of sepsis as above Heart rate is stable. Continue telemetry. Ordered echocardiogram: Showed reduced EF of 35 to 40%. Started lisinopril 5 mg. No beta-blockers in the setting of COPD exacerbation and borderline BP. Follow-up as outpatient for medication adjustment. Monitor kidney function: Creatinine improved and close to baseline. Avoid nephrotoxins. Renally dosed medications Time spent is 40 minutes. More than 50% of the time was spent on patient education and coordination of care.
== END 2024-04-08 13:11 | disposition home or self-care (01) | DRG 190 ==
LOC: SERX 19:19 → SERHOLD 20:40 → S3SX 04-07 00:18
PROVIDERS: Emergency Medicine; Student in an Organized Health Care Education/Training Program; Admitting Provider Student in an Organized Health Care Education/Training Program; Emergency Provider Emergency Medicine; Visit Provider Student in an Organized Health Care Education/Training Program
DX: J44.1 Chronic obstructive pulmonary disease with (acute) exacerbation (principal); J96.01 Acute respiratory failure with hypoxia; N17.9 Acute kidney failure, unspecified; E87.20 Acidosis, unspecified; I50.20 Unspecified systolic (congestive) heart failure; I47.19 Other supraventricular tachycardia; I11.0 Hypertensive heart disease with heart failure; R79.89 Other specified abnormal findings of blood chemistry; F17.210 Nicotine dependence, cigarettes, uncomplicated; R19.7 Diarrhea, unspecified; I49.3 Ventricular premature depolarization; I49.1 Atrial premature depolarization; F15.10 Other stimulant abuse, uncomplicated; F14.10 Cocaine abuse, uncomplicated; Z87.11 Personal history of peptic ulcer disease; Z84.1 Family history of disorders of kidney and ureter; Z79.899 Other long term (current) drug therapy
CPT/HCPCS: 36415; 71045; 80053; 80061; 81001; 83036; 83605; 83690; 83735; 83880; 84100; 84145; 84439; 84443; 84484; 85025; 85610; 85730; 87015; 87040; 87045; 87046; 87077; 87081; 87086; 87205; 87329; 87449; 87493; 87811; 87899; 93225; 93306; 94640; 94644; A9270; J0456; J0696; J1643; J2543; J7030; J7050; J7120

== ENCOUNTER 2024-07-08 15:01 | Emergency (ER) | payer OTHER, SELFPAY ==
[2024-07-08 15:11] VITALS: BP 151/86; PULSE 92; RESP 18; TEMP 36.6; O2SAT 96; BMI 26.8
--- NOTE | 2024-07-08 15:11 | EDNOTE_ITS ---
ED General RME/HPI General Chief complaint: Abdominal Pain Stated complaint: NO BM X1WEEK Time Seen by Provider: 07/08/24 15:06 Arrival date/time: 07/08/24 15:01 CC: Lower abdominal pain, with inability urinate for 2 to 3 days patient denies fever chest pain shortness of breath or difficulty breathing. Localized pain is 5-6 on a 10 scale with immense pressure . Related Data Previous Rx's ?Medication ?Instructions ?Recorded fluticasone fur. 100 mcg-umeclid 2 inh inhalation BID #60 ea 04/08/24 62.5 mcg-vilant 25 mcg inhalat.powder (Trelegy Ellipta) ciprofloxacin HCl 500 mg tablet 500 mg PO BID #20 tabs 07/08/24 (Cipro) tamsulosin 0.4 mg capsule (Flomax) 0.4 mg PO QDAY #20 caps 07/08/24 Allergies Allergy/AdvReac Type Severity Reaction Status Date / Time No Known Allergies Allergy Verified 04/06/24 13:26 Review of Systems Review of Systems Narrative Review of Systems: GEN: No fever, no chills, no weight loss EYES: No discharge, no visual changes, no pain HEENT: No ear pain, no congestion, no sore throat PULM: No shortness of breath, no cough, no congestion CV: No chest pain, no dyspnea on exertion, no palpitations GI: No nausea, no vomiting, no diarrhea, + pain, no constipation : No frequency, no urgency, no dysuria MUSC/SKEL: No joint pain, no back pain SKIN: No rash PSYCH: No hallucinations, no depression HEME/LYMPH: No easy bleeding or bruising tendencies NEURO: No weakness, no headache Past Medical History Past Medical History CARDIAC: Negative Congestive Heart Failure RESPIRATORY: Positive Chronic Obstructive Pulmonary Disease (COPD) GENITOURINARY: Negative Renal Disease ENDOCRINE: Negative Diabetes Mellitus Type 1 or Diabetes Mellitus Type 2 Social History SMOKING STATUS: Current every day smoker SUBSTANCE USE: does not use ED Exam Narrative Physical exam: [General: In moderate discomfort but not in any acute distress Head normocephalic HEENT: Within acceptable limits Neck is supple nontender Chest equal chest rise nontender to palpation Respiratory: Clear to auscultation no wheezes crackles or rubs CV: Rate rhythm is regular no murmurs rubs or clicks Abdomen no significant distention soft nontender no masses positive bowel sounds all 4 quadrants Back: No CVA tenderness no spinous process tenderness from cervical spine thoracic and lumbar spine Skin: Intact no petechiae rash induration ulceration or crepitus Extremities: Moving all extremity against resistance cap refill less than 2 seconds neurosensory intact Neuro: Awake alert oriented x3 Glascow coma 15 no focal deficits] Course Course Course Narrative: Patient refused to leave the Resendez catheter and states he will call his urologist tomorrow. This time patient will be given IM antibiotics and antibiotics for home culture and sensitivity will be sent. Quality Measures none Orders Category Date Time Status Resendez [Urinary Catheter] QS Care 07/08/24 15:10 Active Urinalysis, C/S if Indicated Stat Lab 07/08/24 15:39 Completed Urine Culture Stat Lab 07/08/24 15:39 Received 1,000 mg IM w/Lido* 1% Med 07/08/24 17:04 Ordered cefTRIAXone [Rocephin] 1,000 mg Lidocaine 1% 20 ml [Xylocaine 1% 20 ML] 2.1 ml IM X1 Vital Signs Vital signs: Vital Signs Temperature 97.8 F 07/08/24 15:11 Pulse Rate 92 07/08/24 15:11 Respiratory Rate 18 07/08/24 15:11 Blood Pressure 151/86 H 07/08/24 15:11 Pulse Oximetry (%) 96 07/08/24 15:11 Oxygen Delivery Method Room Air 07/08/24 15:11 Discharge Plan Plan Patient Disposition: HOME (Self Care) Patient condition on transfer: Stable Prescriptions/Referrals Prescriptions/Med Rec: New ciprofloxacin HCl [Cipro] 500 mg tablet 500 mg PO BID Qty: 20 0RF tamsulosin [Flomax] 0.4 mg capsule 0.4 mg PO QDAY Qty: 20 0RF No Action Trelegy Ellipta 100-62.5-25 mcg blister with device 2 inh inhalation BID Qty: 60 0RF Referrals: No Primary/Family,Physician [Primary Care Provider] - In 1 week Valerio Irvin MD [Physician] - In 1 week Problem List Clinical Impression: Acute urinary retention, Urinary tract infection Patient/Caregiver Discharge Instructions Education Materials: ED Urinary Retention, Male, ED Bladder Infection, Male (Adult) Additional Instructions: Take antibiotics as prescribed, if there is a worsening of symptoms return the emergency room immediately. Follow-up with the urologist tomorrow as stated Print Language: Wolof Stand Alone Forms: Shirley Award Info., Patient Portal Info Letter, Work/School Release SHARYN/BIANCA Supervising Physician DANIELE Supervising Physician: Harry Diehl ENP MDM Clinical Information Provided by: patient Medical Records reviewed [facility] Labs/Rad/Tests considered, not ordered Describe: Urine is positive for urinary tract infection including nitrite and leukocyte Estrace positive for WBCs at 146 RBCs of 5.62+ bacteria. Chronic Illness/Social Conditions which may negatively complicate care or outcome(s)-explain: None or not applicable Medication Administration(s) Medication Administration History Ceftriaxone Sodium 1,000 mg/ (Lidocaine HCl 2.1 ml) 0 mg IM X1 ONE Stop: 07/08/24 17:05
[2024-07-08 16:00] VITALS: BP 113/81; PULSE 74; RESP 17; TEMP 37.1; O2SAT 95
[2024-07-08 16:02] VITALS: BP 113/70; PULSE 78; RESP 12; TEMP 37.2; O2SAT 95
[2024-07-08 16:03] LABS: Collection Type, Urine Catheter
[2024-07-08 16:09] LABS: Bacteria,Urine 2+; Bilirubin,Urine Negative (Negative); Blood,Urine 3+ (Negative); Clarity,Urine Turbid (Clear/Hazy); Color,Urine Yellow (Lt Yel-Yel); Glucose, Urine Negative (Negative); Ketones,Urine Negative (Negative); Leukocyte Esterase,Urine Positive (Negative); Nitrite,Urine Positive (Negative); PH,Urine 6.5 (5.0-7.0); Protein,Urine Trace (Neg - Trace); RBC,Urine 516 /hpf (0-3); Specific Gravity,Urine 1.016 (1.001-1.035); Squamous Epithelial Cell,Urine < 1 /hpf (0-5); Urobilinogen,Urine Negative mg/dL (0.0-1.0); WBC,Urine 146 /hpf (0-5)
[2024-07-08 16:23] LABS: Culture Indicated,Urine Yes
[2024-07-08] MEDS: cefTRIAXone 1,000 MG, LIDOCAINE 1% 20 ML 2.1 ML IM (17:14)
[2024-07-08 17:37] VITALS: BP 119/77; PULSE 71; RESP 12; TEMP 36.6; O2SAT 98
== END 2024-07-08 17:38 | disposition home or self-care (01) ==
PROVIDERS: Registered Nurse General Practice; Emergency Provider Family Medicine
DX: N39.0 Urinary tract infection, site not specified (principal)
CPT/HCPCS: 51702; 81001; 87077; 87086; 87186; 96372; 99283; J0696; J3490

== ENCOUNTER 2024-07-09 06:37 | Emergency (ER) | payer OTHER, SELFPAY ==
[2024-07-09 06:38] VITALS: BMI 26.8
[2024-07-09 06:49] VITALS: BP 156/100; PULSE 89; RESP 18; TEMP 36.5; O2SAT 97
--- NOTE | 2024-07-09 06:56 | PD.EDMALE ---
ED Male Genitalurinary RME/HPI General Chief complaint: General Adult/Misc Complain Stated complaint: unable to urinate Time Seen by Provider: 07/09/24 06:53 Source: patient Arrival date/time: 07/09/24 06:37 74-year-old male with a history of BPH presents to the emergency room with a chief complaint of urinary retention x 1 day. Mode of arrival: ambulatory Limitations: no limitations Related Data Previous Rx's ?Medication ?Instructions ?Recorded fluticasone fur. 100 mcg-umeclid 2 inh inhalation BID #60 ea 04/08/24 62.5 mcg-vilant 25 mcg inhalat.powder (Trelegy Ellipta) ciprofloxacin HCl 500 mg tablet 500 mg PO BID #20 tabs 07/08/24 (Cipro) tamsulosin 0.4 mg capsule (Flomax) 0.4 mg PO QDAY #20 caps 07/08/24 Allergies Allergy/AdvReac Type Severity Reaction Status Date / Time No Known Allergies Allergy Verified 07/09/24 06:42 Review of Systems Review of Systems Systems Reviewed: All systems reviewed, normal except as documented Constitutional Constitutional: Reports system reviewed and no additional complaints, except as documented, Denies fatigue, Denies fever(s), Denies headache(s) and Denies weakness Eyes Eyes: Reports system reviewed and no additional complaints, except as documented, Denies blurry vision and Denies change in vision ENT Ears, Nose, Mouth, and Throat: Reports system reviewed and no additional complaints, except as documented, Denies otalgia, Denies headache(s), Denies nasal congestion, Denies throat swelling and Denies vertigo Cardiovascular Cardiovascular: Reports system reviewed and no additional complaints, except as documented, Denies chest pain, Denies dyspnea and Denies dyspnea on exertion Respiratory Respiratory: Reports system reviewed and no additional complaints, except as documented, Denies chest congestion, Denies cough, Denies dyspnea, Denies dyspnea on exertion and Denies wheezing Gastrointestinal Gastrointestinal: Reports system reviewed and no additional complaints, except as documented, Denies abdominal pain, Denies cramping, Denies nausea and Denies vomiting Genitourinary Genitourinary: Reports system reviewed and no additional complaints, except as documented, Reports difficulty urinating, Reports dysuria and Denies hematuria Musculoskeletal Musculoskeletal: Reports system reviewed and no additional complaints, except as documented and Denies back pain Integumentary/Breasts Skin/Breast: Reports system reviewed and no additional complaints, except as documented and Denies wounds Neurologic Neurologic: Reports system reviewed and no additional complaints, except as documented, Denies confusion, Denies headache(s), Denies lack of coordination, Denies vertigo and Denies weakness Psychiatric Psychiatric: Reports system reviewed and no additional complaints, except as documented, Denies anxiety, Denies confusion, Denies depression, Denies paranoia, Denies suicidal ideation and Denies tactile hallucinations Endocrine Endocrine: Reports system reviewed and no additional complaints, except as documented and Denies fatigue Hematologic/Lymphatic Hematologic/Lymphatic: Reports system reviewed and no additional complaints, except as documented and Denies lymphadenopathy Allergic/Immunologic Allergic/Immunologic: Reports system reviewed and no additional complaints, except as documented, Denies throat swelling, Denies urticaria and Denies wheezing Past Medical History Past Medical History CARDIAC: Negative Congestive Heart Failure RESPIRATORY: Positive Chronic Obstructive Pulmonary Disease (COPD) GENITOURINARY: Negative Renal Disease ENDOCRINE: Negative Diabetes Mellitus Type 1 or Diabetes Mellitus Type 2 Social History SMOKING STATUS: Never smoker SUBSTANCE USE: does not use ED Exam General Limitations: Present no limitations General appearance: Present alert and in no apparent distress Head Head exam: Present atraumatic Eye Eye exam: Present normal appearance, PERRL and EOMI ENT ENT exam: Present normal exam, normal oropharynx and mucous membranes moist Neck Neck exam: Present normal inspection, full ROM and trachea midline Chest Chest inspection: Present normal inspection and symmetric chest wall rise Respiratory Respiratory exam: Present normal lung sounds bilaterally Cardiovascular Cardiovascular exam: Present regular rate, normal rhythm and normal heart sounds Abdominal Exam Abdominal exam: Present soft and normal bowel sounds Extremities Exam Extremities exam: Present normal inspection and full ROM Back Exam Back exam: Present normal inspection and full ROM Neurological Exam Neurological exam: Present alert, oriented X3 and CN II-XII intact Psychiatric Psychiatric exam: Present normal affect and normal mood Skin Skin exam: Present warm, dry, intact and normal color Course Quality Measures none Orders Category Date Time Status Resendez [Urinary Catheter] QS Care 07/09/24 06:51 Active UA, C/S IF [Urinalysis, C/S if Indicated] Stat Lab 07/09/24 06:52 Ordered Ketorolac Inj [Toradol Inj] Med 07/09/24 07:22 Discontinued 30 mg IM X1 ONE cefTRIAXone [Rocephin] 1,000 mg Med 07/09/24 06:53 Discontinued Lidocaine 1% 20 ml [Xylocaine 1% 20 ML] 2.1 ml IM X1 Vital Signs Vital signs: Vital Signs Temperature 97.7 F 07/09/24 06:49 Pulse Rate 89 07/09/24 06:49 Respiratory Rate 18 07/09/24 06:49 Blood Pressure 156/100 H 07/09/24 06:49 Pulse Oximetry (%) 97 07/09/24 06:49 Oxygen Delivery Method Room Air 07/09/24 06:49 O2 saturation 97% within normal limits Urogenital - Male MDM Narrative MDM Narrative:: 74-year-old male with a history of BPH presents to the emergency room with a chief complaint of urinary retention x 1 day. Patient is hemodynamically stable and in no apparent distress. Physical examination shows a 10 out of 10 distended lower abdomen. Patient states he has a lot of pressure and pain. Patient was seen here in the emergency room 2 days ago for acute urinary retention. A urinary catheter was placed but the patient wanted it removed before discharge. Patient states he is going to follow-up with his primary care provider tomorrow morning and begin a referral process to his urologist. The catheter was inserted and left in place and to be seen and cleared by a urologist. Patient was educated to return to the emergency room for any evidence of worsening signs or symptoms Patient data External records reviewed:: [facility] previous records Clinical information provided by:: patient Social determinants that could affect healthcare access:: none Patient has the following chronic illnesses:: BPH How is presenting disease/condition affected by chronic disease/condition?: caused by Evaluation data The following diagnostics were reviewed and interpreted by me:: lab results and radiology exam(s) Lab and/or radiology exams considered but not ordered:: Labs and radiology exams considered in order Interpretation Summary: N/A Medications / Prescriptions Medications or Prescriptions considered but not ordered:: Medication given Medication administrations:: Medication Administration History Discontinued Medications Ceftriaxone Sodium 1,000 mg/ (Lidocaine HCl 2.1 ml) 0 mg IM X1 ONE Stop: 07/09/24 06:54 Last Admin: 07/09/24 07:29 Dose: 1,000 mg Documented By: STACIA Comments: 2.1 ml of lidocaine Ketorolac Tromethamine (Ketorolac Inj 60 Mg/2 Ml Vial) 30 mg IM X1 ONE Stop: 07/09/24 07:23 Last Admin: 07/09/24 07:32 Dose: 30 mg Documented By: STACIA Medication given Consultations Consultation(s) initiated? (list below): No Diagnosis Urogenital Male Differential Diagnosis: urinary tract infection, urethritis, prostatitis and acute retention of urine Most likely diagnosis given after review of the tests above:: Acute urinary retention Admission Indicated Admission indicated?: not indicated Admission Request Was there a request for admission?: No Disposition Plan Disposition Plan: Discharge Discharge Attestation Discharge Attestation: The patient and all family members were given an opportunity to ask questions and understood the discharge instructions. Discharge instructions specifically effects, indications for sooner follow up or return to the emergency department, and the expected course of current diagnosis. Patient condition: Stable Discharge Plan Plan Patient Disposition: HOME (Self Care) Discharge Disposition comment: Stable Prescriptions/Referrals Prescriptions/Med Rec: No Action Trelemeri Ellipta 100-62.5-25 mcg blister with device 2 inh inhalation BID Qty: 60 0RF ciprofloxacin HCl [Cipro] 500 mg tablet 500 mg PO BID Qty: 20 0RF tamsulosin [Flomax] 0.4 mg capsule 0.4 mg PO QDAY Qty: 20 0RF Problem List Clinical Impression: Acute urinary retention Patient/Caregiver Discharge Instructions Education Materials: ED Urinary Retention, Male Additional Instructions: Please follow-up with your primary care provider in the next 24 to 48 hours. You will need a referral to urologist to manage your prostate enlargement. 2 days ago you were prescribed antibiotics for a urinary tract infection. Please continue to take these antibiotics. Please keep your Resendez catheter in place until you are seen and cleared by urologist. For any evidence of worsening signs or symptoms return to the emergency room immediately Print Language: Uzbek Stand Alone Forms: Shirley Award Info., Patient Portal Info Letter PA/BIANCA Supervising Physician PA/BIANCA Supervising Physician: Dr. Bass
[2024-07-09] MEDS: cefTRIAXone 1,000 MG, LIDOCAINE 1% 20 ML 2.1 ML IM (07:29)
[2024-07-09] MEDS: KETOROLAC INJ 60 MG/2 ML VIAL 30 MG IM (07:32)
== END 2024-07-09 07:50 | disposition home or self-care (01) ==
LOC: SERX 08:02
PROVIDERS: Emergency Provider Family Medicine
DX: N40.1 Benign prostatic hyperplasia with lower urinary tract symptoms (principal); R33.8 Other retention of urine
CPT/HCPCS: 51702; 81001; 96372; 99283; J0696; J1885; J3490

== ENCOUNTER 2024-07-18 12:08 | Emergency (ER) | payer OTHER, SELFPAY ==
[2024-07-18 12:18] VITALS: BP 157/91; PULSE 76; RESP 17; TEMP 36.7; O2SAT 96; BMI 26.8
--- NOTE | 2024-07-18 12:24 | EDNOTE_ITS ---
ED Male Genitalurinary RME/HPI General Chief complaint: Urogenital-Male Stated complaint: GET CATHETER REMOVED Time Seen by Provider: 07/18/24 12:18 Arrival date/time: 07/18/24 12:08 74-year-old male presents to the emergency room today requesting Resendez catheter removal Limitations: no limitations Related Data Previous Rx's ?Medication ?Instructions ?Recorded fluticasone fur. 100 mcg-umeclid 2 inh inhalation BID #60 ea 04/08/24 62.5 mcg-vilant 25 mcg inhalat.powder (Trelegy Ellipta) ciprofloxacin HCl 500 mg tablet 500 mg PO BID #20 tabs 07/08/24 (Cipro) tamsulosin 0.4 mg capsule (Flomax) 0.4 mg PO QDAY #20 caps 07/08/24 Allergies Allergy/AdvReac Type Severity Reaction Status Date / Time No Known Allergies Allergy Verified 07/18/24 12:10 Review of Systems Review of Systems Systems Reviewed: All systems reviewed, normal except as documented Constitutional Constitutional: Reports system reviewed and no additional complaints, except as documented, Denies fever(s) and Denies headache(s) Eyes Eyes: Reports system reviewed and no additional complaints, except as documented and Denies blurry vision ENT Ears, Nose, Mouth, and Throat: Reports system reviewed and no additional complaints, except as documented, Denies headache(s), Denies nasal congestion and Denies nasal discharge Cardiovascular Cardiovascular: Reports system reviewed and no additional complaints, except as documented, Denies chest pain and Denies dyspnea Respiratory Respiratory: Reports system reviewed and no additional complaints, except as documented, Denies chest congestion, Denies cough and Denies dyspnea Gastrointestinal Gastrointestinal: Reports system reviewed and no additional complaints, except as documented and Denies abdominal pain Genitourinary Genitourinary: Reports system reviewed and no additional complaints, except as documented and Reports other (Resendez catheter in place) Integumentary/Breasts Skin/Breast: Reports system reviewed and no additional complaints, except as documented and Denies rash Neurologic Neurologic: Reports system reviewed and no additional complaints, except as documented, Reports as per HPI and Denies headache(s) Past Medical History Past Medical History CARDIAC: Negative Congestive Heart Failure RESPIRATORY: Positive Chronic Obstructive Pulmonary Disease (COPD) GENITOURINARY: Negative Renal Disease ENDOCRINE: Negative Diabetes Mellitus Type 1 or Diabetes Mellitus Type 2 Social History SMOKING STATUS: Heavy (> 1 pack/day) SUBSTANCE USE: does not use ED Exam General Limitations: Present no limitations General appearance: Present alert and in no apparent distress Head Head exam: Present atraumatic Eye Eye exam: Present normal appearance, PERRL and EOMI ENT ENT exam: Present normal exam, normal oropharynx and mucous membranes moist Neck Neck exam: Present normal inspection, full ROM and trachea midline Chest Chest inspection: Present normal inspection and symmetric chest wall rise Respiratory Respiratory exam: Present normal lung sounds bilaterally Cardiovascular Cardiovascular exam: Present regular rate, normal rhythm and normal heart sounds Abdominal Exam Abdominal exam: Present soft and normal bowel sounds; Absent distention, tenderness, guarding, rebound or rigidity Extremities Exam Extremities exam: Present normal inspection and full ROM Back Exam Back exam: Present normal inspection and full ROM Neurological Exam Neurological exam: Present alert, oriented X3 and CN II-XII intact Psychiatric Psychiatric exam: Present normal affect and normal mood Skin Skin exam: Present warm, dry, intact and normal color Course Quality Measures none Vital Signs Vital signs: Vital Signs Temperature 98.0 F 07/18/24 12:18 Pulse Rate 76 07/18/24 12:18 Respiratory Rate 17 07/18/24 12:18 Blood Pressure 157/91 H 07/18/24 12:18 Pulse Oximetry (%) 96 07/18/24 12:18 Oxygen Delivery Method Room Air 07/18/24 12:18 O2 saturation 96% on room air within normal limits Urogenital - Male MDM Narrative MDM Narrative:: 74-year-old male presents to the emergency room today requesting Resendez catheter removal Patient had a catheter placed approximately 1 week patient questing Resendez catheter removal and he reports he is following up with his urologist on Tuesday Resendez catheter is removed per patient request Explained to patient if he does not urinate within next 68 hours he will have to return for Resendez catheter placement patient states understanding Patient data External records reviewed:: [facility] previous records Clinical information provided by:: patient Social determinants that could affect healthcare access:: none Patient has the following chronic illnesses:: Urinary retention How is presenting disease/condition affected by chronic disease/condition?: caused by Evaluation data The following diagnostics were reviewed and interpreted by me:: other (specify) Lab and/or radiology exams considered but not ordered:: Consider not ordered Interpretation Summary: N/A Medications / Prescriptions Medications or Prescriptions considered but not ordered:: Given Medication administrations:: Given Consultations Consultation(s) initiated? (list below): No Diagnosis Urogenital Male Differential Diagnosis: urinary tract infection, acute retention of urine and other Most likely diagnosis given after review of the tests above:: Resendez catheter removal Admission Indicated Admission indicated?: not indicated Admission Request Was there a request for admission?: No Disposition Plan Disposition Plan: Discharge Discharge Attestation Discharge Attestation: The patient and all family members were given an opportunity to ask questions and understood the discharge instructions. Discharge instructions specifically effects, indications for sooner follow up or return to the emergency department, and the expected course of current diagnosis. Patient condition: Stable Discharge Plan Plan Patient Disposition: HOME (Self Care) Discharge Disposition comment: Stable Prescriptions/Referrals Prescriptions/Med Rec: No Action [place] Ellipta 100-62.5-25 mcg blister with device 2 inh inhalation BID Qty: 60 0RF ciprofloxacin HCl [Cipro] 500 mg tablet 500 mg PO BID Qty: 20 0RF tamsulosin [Flomax] 0.4 mg capsule 0.4 mg PO QDAY Qty: 20 0RF Problem List Clinical Impression: Encounter for Resendez catheter removal Patient/Caregiver Discharge Instructions Additional Instructions: Please keep your appoint with your urologist If you cannot urinate within next 6 to 8 hours you must return for replacement Print Language: Tamazight Stand Alone Forms: Shirley Award Info., Patient Portal Info Letter PA/BIANCA Supervising Physician SHARYN/BIANCA Supervising Physician: Dr mariano
--- NOTE | 2024-07-18 12:41 | PC.NURSE ---
PATTON REMOVED ORDERED BY JESSICA SALMERON.
== END 2024-07-18 12:40 | disposition home or self-care (01) ==
LOC: SERX 12:46
PROVIDERS: Emergency Provider Emergency Medicine
DX: Z46.6 Encounter for fitting and adjustment of urinary device (principal)
CPT/HCPCS: 99282

== ENCOUNTER 2024-07-28 20:44 | Emergency (ER) | payer OTHER, SELFPAY ==
[2024-07-28 20:45] VITALS: BMI 26.8
[2024-07-28 21:25] VITALS: BP 162/107; PULSE 112; RESP 16; TEMP 36.7; O2SAT 96
--- NOTE | 2024-07-28 21:56 | EDNOTE_ITS ---
ED Male Genitalurinary RME/HPI General Chief complaint: Urogenital-Male Stated complaint: NEEDS CATHETER PLACE, UNABLE TO URINATE X2 DAYS Time Seen by Provider: 07/28/24 21:37 Arrival date/time: 07/28/24 20:44 74M with history of COPD, CAD and SVT presents to ED with several weeks of dysuria and intermittent urinary retention. Patient has urologist appt next week. Patient has been here several times for this with Resendez removal and insertions at patient's request. Limitations: no limitations Related Data Previous Rx's ?Medication ?Instructions ?Recorded fluticasone fur. 100 mcg-umeclid 2 inh inhalation BID #60 ea 04/08/24 62.5 mcg-vilant 25 mcg inhalat.powder (Trelegy Ellipta) ciprofloxacin HCl 500 mg tablet 500 mg PO BID #20 tabs 07/08/24 (Cipro) tamsulosin 0.4 mg capsule (Flomax) 0.4 mg PO QDAY #20 caps 07/08/24 cefuroxime axetil 500 mg tablet 500 mg PO BID 10 days #20 tabs 07/28/24 Allergies Allergy/AdvReac Type Severity Reaction Status Date / Time No Known Allergies Allergy Verified 07/28/24 20:45 Review of Systems Review of Systems Systems Reviewed: All systems reviewed, normal except as documented Constitutional Constitutional: Reports system reviewed and no additional complaints, except as documented, Denies fever(s) and Denies headache(s) ENT Ears, Nose, Mouth, and Throat: Denies disequilibrium and Denies headache(s) Cardiovascular Cardiovascular: Reports system reviewed and no additional complaints, except as documented, Denies chest pain and Denies dyspnea Respiratory Respiratory: Reports system reviewed and no additional complaints, except as documented, Denies cough and Denies dyspnea Gastrointestinal Gastrointestinal: Reports system reviewed and no additional complaints, except as documented, Denies abdominal pain, Denies nausea and Denies vomiting Genitourinary Genitourinary: Reports as per HPI, Reports difficulty urinating and Reports dysuria Neurologic Neurologic: Reports system reviewed and no additional complaints, except as documented, Denies confusion, Denies disequilibrium and Denies headache(s) Psychiatric Psychiatric: Denies confusion Past Medical History Past Medical History CARDIAC: Negative Congestive Heart Failure RESPIRATORY: Positive Chronic Obstructive Pulmonary Disease (COPD) GENITOURINARY: Negative Renal Disease ENDOCRINE: Negative Diabetes Mellitus Type 1 or Diabetes Mellitus Type 2 Social History SMOKING STATUS: Current some day smoker SUBSTANCE USE: does not use ED Exam General Limitations: Present no limitations General appearance: Present alert and in no apparent distress Head Head exam: Present atraumatic Eye Eye exam: Present normal appearance, PERRL and EOMI ENT ENT exam: Present normal exam, normal oropharynx and mucous membranes moist Neck Neck exam: Present normal inspection, full ROM and trachea midline Chest Chest inspection: Present normal inspection and symmetric chest wall rise Respiratory Respiratory exam: Present normal lung sounds bilaterally Cardiovascular Cardiovascular exam: Present regular rate, normal rhythm and normal heart sounds Abdominal Exam Abdominal exam: Present soft and normal bowel sounds Extremities Exam Extremities exam: Present normal inspection and full ROM Back Exam Back exam: Present normal inspection and full ROM Neurological Exam Neurological exam: Present alert, oriented X3 and CN II-XII intact Psychiatric Psychiatric exam: Present normal affect and normal mood Skin Skin exam: Present warm, dry, intact and normal color Course Quality Measures none Orders Category Date Time Status Catheter [Urinary Catheter] QS Care 07/28/24 21:38 Active Resendez to Leg Bag Routine Care 07/28/24 21:38 Ordered Ketorolac Inj [Toradol Inj] Med 07/28/24 22:00 Discontinued 30 mg IM X1 ONE cefuroxime axetiL [cefUROXime axetil] Med 07/28/24 22:00 Discontinued 500 mg PO X1 ONE Vital Signs Vital signs: Vital Signs Temperature 98.1 F 07/28/24 21:25 Pulse Rate 112 H 07/28/24 21:25 Respiratory Rate 16 07/28/24 21:25 Blood Pressure 162/107 H 07/28/24 21:25 Pulse Oximetry (%) 96 07/28/24 21:25 Oxygen Delivery Method Room Air 07/28/24 21:25 O2 at 96% on RA and WNLs Urogenital - Male MDM Narrative MDM Narrative:: 74M with history of COPD, CAD and SVT presents to ED with several weeks of dysuria and intermittent urinary retention. Patient has urologist appt next week. Patient has been here several times for this with Resendez removal and insertions at patient's request. Physical exam reveals ab fullness. Patient is afebrile, alert, but seems to be uncomfortable. Resendez placed and patient had immediate relief. Patient was treated with Cipro from the initial visit, but UC grew staph species resistant to FQs, so will treat with ABX that is effective against bacteria present. Patient data External records reviewed:: [facility] previous records Clinical information provided by:: patient Social determinants that could affect healthcare access:: none Patient has the following chronic illnesses:: COPD, CAD and SVT How is presenting disease/condition affected by chronic disease/condition?: uneffected by Evaluation data The following diagnostics were reviewed and interpreted by me:: other (specify) (none) Lab and/or radiology exams considered but not ordered:: not ordered Interpretation Summary: n/a Medications / Prescriptions Medications or Prescriptions considered but not ordered:: ordered Medication administrations:: Medication Administration History Discontinued Medications Cefuroxime Axetil (Cefuroxime Axetil 250 Mg Tablet) 500 mg PO X1 ONE Stop: 07/28/24 22:01 Ketorolac Tromethamine (Ketorolac Inj 60 Mg/2 Ml Vial) 30 mg IM X1 ONE Stop: 07/28/24 22:01 above Consultations Consultation(s) initiated? (list below): No Diagnosis Urogenital Male Differential Diagnosis: urinary tract infection, priapism, urethritis, epididymitis, genital herpes simplex, prostatitis, acute retention of urine and inguinal hernia Most likely diagnosis given after review of the tests above:: UTI and urinary retention Admission Indicated Admission indicated?: not indicated Admission Request Was there a request for admission?: No Disposition Plan Disposition Plan: Discharge Discharge Attestation Discharge Attestation: The patient and all family members were given an opportunity to ask questions and understood the discharge instructions. Discharge instructions specifically effects, indications for sooner follow up or return to the emergency department, and the expected course of current diagnosis. Patient condition: Stable Discharge Plan Plan Patient Disposition: HOME (Self Care) Discharge Disposition comment: Stable Prescriptions/Referrals Prescriptions/Med Rec: New cefuroxime axetil 500 mg tablet 500 mg PO BID 10 Days Qty: 20 0RF No Action Trelegy Ellipta 100-62.5-25 mcg blister with device 2 inh inhalation BID Qty: 60 0RF ciprofloxacin HCl [Cipro] 500 mg tablet 500 mg PO BID Qty: 20 0RF tamsulosin [Flomax] 0.4 mg capsule 0.4 mg PO QDAY Qty: 20 0RF Problem List Clinical Impression: Acute retention of urine, Urinary tract infection Patient/Caregiver Discharge Instructions Education Materials: ED Urinary Retention, Male, ED Bladder Infection, Male (Adult) Additional Instructions: Please follow-up with PCP within 24-48 hours and return immediately if symptoms worsen. Good luck with urologist appt. Print Language: [place] Stand Alone Forms: Patient Portal Info Letter SHARYN/BIANCA Supervising Physician SHARYN/BIANCA Supervising Physician: Dr. Theodore
[2024-07-28] MEDS: cefuroxime axetiL 250 MG TABLET 500 MG PO (23:17)
[2024-07-28] MEDS: KETOROLAC INJ 60 MG/2 ML VIAL 30 MG IM (23:18)
== END 2024-07-28 23:19 | disposition home or self-care (01) ==
LOC: SERX 23:56
PROVIDERS: Emergency Provider Emergency Medicine
DX: N39.0 Urinary tract infection, site not specified (principal); J44.9 Chronic obstructive pulmonary disease, unspecified; I25.10 Atherosclerotic heart disease of native coronary artery without angina pectoris
CPT/HCPCS: 96372; 99283; J1885; A9270

== ENCOUNTER 2024-07-31 11:11 | Emergency (ER) | payer OTHER, SELFPAY ==
[2024-07-31 11:11] VITALS: BMI 26.8
[2024-07-31 11:47] VITALS: BP 164/84; PULSE 83; RESP 18; TEMP 36.7; O2SAT 96
--- NOTE | 2024-07-31 12:02 | EDNOTE_ITS ---
ED Male Genitalurinary RME/HPI General Chief complaint: Urogenital-Male Stated complaint: NEED CATH REMOVED Time Seen by Provider: 07/31/24 11:32 Arrival date/time: 07/31/24 11:11 74-year-old male presents to the emergency department today requesting Resendez catheter removal patient does report he does have follow-up with a urologist does not want a catheter anymore Limitations: no limitations Related Data Previous Rx's ?Medication ?Instructions ?Recorded fluticasone fur. 100 mcg-umeclid 2 inh inhalation BID #60 ea 04/08/24 62.5 mcg-vilant 25 mcg inhalat.powder (Trelegy Ellipta) ciprofloxacin HCl 500 mg tablet 500 mg PO BID #20 tabs 07/08/24 (Cipro) tamsulosin 0.4 mg capsule (Flomax) 0.4 mg PO QDAY #20 caps 07/08/24 cefuroxime axetil 500 mg tablet 500 mg PO BID 10 days #20 tabs 07/28/24 Allergies Allergy/AdvReac Type Severity Reaction Status Date / Time No Known Allergies Allergy Verified 07/31/24 11:16 Review of Systems Review of Systems Systems Reviewed: All systems reviewed, normal except as documented Constitutional Constitutional: Reports system reviewed and no additional complaints, except as documented, Denies fever(s) and Denies headache(s) Eyes Eyes: Reports system reviewed and no additional complaints, except as documented and Denies blurry vision ENT Ears, Nose, Mouth, and Throat: Reports system reviewed and no additional complaints, except as documented, Denies headache(s), Denies nasal congestion and Denies nasal discharge Cardiovascular Cardiovascular: Reports system reviewed and no additional complaints, except as documented, Denies chest pain and Denies dyspnea Respiratory Respiratory: Reports system reviewed and no additional complaints, except as documented, Denies chest congestion, Denies cough and Denies dyspnea Gastrointestinal Gastrointestinal: Reports system reviewed and no additional complaints, except as documented and Denies abdominal pain Integumentary/Breasts Skin/Breast: Reports system reviewed and no additional complaints, except as documented and Denies rash Neurologic Neurologic: Reports system reviewed and no additional complaints, except as documented, Reports as per HPI and Denies headache(s) Past Medical History Past Medical History CARDIAC: Negative Congestive Heart Failure RESPIRATORY: Positive Chronic Obstructive Pulmonary Disease (COPD) GENITOURINARY: Negative Renal Disease ENDOCRINE: Negative Diabetes Mellitus Type 1 or Diabetes Mellitus Type 2 Social History SMOKING STATUS: Current every day smoker SUBSTANCE USE: does not use ED Exam General Limitations: Present no limitations General appearance: Present alert and in no apparent distress Head Head exam: Present atraumatic Eye Eye exam: Present normal appearance, PERRL and EOMI ENT ENT exam: Present normal exam, normal oropharynx and mucous membranes moist Neck Neck exam: Present normal inspection, full ROM and trachea midline Chest Chest inspection: Present normal inspection and symmetric chest wall rise Respiratory Respiratory exam: Present normal lung sounds bilaterally Cardiovascular Cardiovascular exam: Present regular rate, normal rhythm and normal heart sounds Abdominal Exam Abdominal exam: Present soft and normal bowel sounds; Absent distention, tenderness, guarding, rebound or rigidity exam: Present other (Resendez catheter in place) Extremities Exam Extremities exam: Present normal inspection and full ROM Back Exam Back exam: Present normal inspection and full ROM Neurological Exam Neurological exam: Present alert, oriented X3, CN II-XII intact, normal gait and reflexes normal; Absent motor sensory deficit Psychiatric Psychiatric exam: Present normal affect and normal mood Skin Skin exam: Present warm, dry, intact and normal color Course Quality Measures none Orders Category Date Time Status Resendez [Urinary Catheter, Remove] NOW Care 07/31/24 12:02 Completed Vital Signs Vital signs: Vital Signs Temperature 98.0 F 07/31/24 11:47 Pulse Rate 83 07/31/24 11:47 Respiratory Rate 18 07/31/24 11:47 Blood Pressure 164/84 H 07/31/24 11:47 Pulse Oximetry (%) 96 07/31/24 11:47 Oxygen Delivery Method Room Air 07/31/24 11:47 O2 saturation 96% room air within the limits Urogenital - Male MDM Narrative MDM Narrative:: 74-year-old male presents to the emergency department today requesting Resendez catheter removal patient does report he does have follow-up with a urologist does not want a catheter anymore Catheter was removed per patient request Explained to patient he should keep his appointment with his urologist and if he does not urinate within next 6 to 8 hours must return for reevaluation Patient data External records reviewed:: [facility] previous records Clinical information provided by:: patient Social determinants that could affect healthcare access:: none Patient has the following chronic illnesses:: None How is presenting disease/condition affected by chronic disease/condition?: no chronic disease Evaluation data The following diagnostics were reviewed and interpreted by me:: other (specify) (N/A) Lab and/or radiology exams considered but not ordered:: Consider not ordered Interpretation Summary: N/A Medications / Prescriptions Medications or Prescriptions considered but not ordered:: No meds Medication administrations:: No meds Consultations Consultation(s) initiated? (list below): No Diagnosis Urogenital Male Differential Diagnosis: urinary tract infection, priapism, urethritis and inguinal hernia Most likely diagnosis given after review of the tests above:: Resendez catheter removal Admission Indicated Admission indicated?: not indicated Admission Request Was there a request for admission?: No Disposition Plan Disposition Plan: Discharge Discharge Attestation Discharge Attestation: The patient and all family members were given an opportunity to ask questions and understood the discharge instructions. Discharge instructions specifically effects, indications for sooner follow up or return to the emergency department, and the expected course of current diagnosis. Patient condition: Stable Discharge Plan Plan Patient Disposition: HOME (Self Care) Discharge Disposition comment: Able Prescriptions/Referrals Prescriptions/Med Rec: No Action Trelegy Ellipta 100-62.5-25 mcg blister with device 2 inh inhalation BID Qty: 60 0RF ciprofloxacin HCl [Cipro] 500 mg tablet 500 mg PO BID Qty: 20 0RF tamsulosin [Flomax] 0.4 mg capsule 0.4 mg PO QDAY Qty: 20 0RF cefuroxime axetil 500 mg tablet 500 mg PO BID 10 Days Qty: 20 0RF Problem List Clinical Impression: Resendez catheter problem Patient/Caregiver Discharge Instructions Additional Instructions: If you do not urinate within the next 6 to 8 hours you must return for Resendez catheter placement please keep your appoint with urology as discussed Print Language: Kyr[place]z Stand Alone Forms: Shirley Award Info., Work/School Release, Patient Portal Info Letter PA/BIANCA Supervising Physician SHARYN/BIANCA Supervising Physician: Dr Philippe
--- NOTE | 2024-07-31 12:25 | PC.NURSE ---
staples cath was removed
== END 2024-07-31 12:30 | disposition home or self-care (01) ==
LOC: SERX 12:33
PROVIDERS: Emergency Provider Emergency Medicine
DX: Z46.6 Encounter for fitting and adjustment of urinary device (principal)
CPT/HCPCS: 99282

== ENCOUNTER 2024-08-03 19:55 | Emergency (ER) | payer OTHER, SELFPAY ==
[2024-08-03 19:57] VITALS: BP 128/89; PULSE 90; RESP 18; TEMP 36.8; O2SAT 96; BMI 26.8
--- NOTE | 2024-08-03 20:35 | PD.EDADULT ---
ED General RME/HPI General Chief complaint: General Adult/Misc Complain Stated complaint: UNABLE TO VOID Time Seen by Provider: 08/03/24 20:30 Arrival date/time: 08/03/24 19:55 RME / HPI RME / HPI narrative: 74-year-old male presents to the ED with a complaint of inability to urinate. He has been having ongoing issues for the past 6 months. He was unable to get an appointment with his urologist until late August. He was urinating normally last night but when he woke up this morning, he was unable to urinate. He is having lower pelvic pain since this morning. He denies any fever or chills, nausea or vomiting, low back pain or flank pain. Related Data Previous Rx's ?Medication ?Instructions ?Recorded fluticasone fur. 100 mcg-umeclid 2 inh inhalation BID #60 ea 04/08/24 62.5 mcg-vilant 25 mcg inhalat.powder (Trelegy Ellipta) ciprofloxacin HCl 500 mg tablet 500 mg PO BID #20 tabs 07/08/24 (Cipro) tamsulosin 0.4 mg capsule (Flomax) 0.4 mg PO QDAY #20 caps 07/08/24 cefuroxime axetil 500 mg tablet 500 mg PO BID 10 days #20 tabs 07/28/24 Allergies Allergy/AdvReac Type Severity Reaction Status Date / Time No Known Allergies Allergy Verified 08/03/24 20:00 Review of Systems Review of Systems Systems Reviewed: All systems reviewed, normal except as documented Past Medical History Past Medical History CARDIAC: Negative Congestive Heart Failure RESPIRATORY: Positive Chronic Obstructive Pulmonary Disease (COPD) GENITOURINARY: Negative Renal Disease ENDOCRINE: Negative Diabetes Mellitus Type 1 or Diabetes Mellitus Type 2 Social History SMOKING STATUS: Current some day smoker SUBSTANCE USE: does not use ED Exam Narrative Physical exam: Alert and oriented 74-year-old male, no acute distress. Lungs are clear, regular rate and rhythm without murmurs. Abdomen is soft nontender. No flank tenderness. Moves all extremities well. Course Course Course Narrative: 74-year-old male presents to the ED with a complaint of inability to urinate. He has been having ongoing issues for the past 6 months. He was unable to get an appointment with his urologist until late August. He was urinating normally last night but when he woke up this morning, he was unable to urinate. He is having lower pelvic pain since this morning. He denies any fever or chills, nausea or vomiting, low back pain or flank pain. Alert and oriented 74-year-old male, no acute distress. Lungs are clear, regular rate and rhythm without murmurs. Abdomen is soft nontender. No flank tenderness. Moves all extremities well. Resendez placed to gravity. CBC, CMP, urinalysis and urine culture ordered to rule out infection or acute kidney injury secondary to obstructive uropathy, however patient decided he wanted to leave without these tests being completed. Patient leaving AMA. AMA form signed and patient left in stable condition. Quality Measures none Orders Category Date Time Status Resendez to [place] Routine Care 08/03/24 20:10 Ordered CBC Stat Lab 08/03/24 20:40 Ordered CMP [Comprehensive Metabolic Panel] Stat Lab 08/03/24 20:40 Ordered CRP [C-Reactive Protein] Stat Lab 08/03/24 20:40 Ordered Urinalysis Stat Lab 08/03/24 20:25 Received Urine Culture Stat Lab 08/03/24 20:25 Received Vital Signs Vital signs: Vital Signs Temperature 98.3 F 08/03/24 19:57 Pulse Rate 90 08/03/24 19:57 Respiratory Rate 18 08/03/24 19:57 Blood Pressure 128/89 H 08/03/24 19:57 Pulse Oximetry (%) 96 08/03/24 19:57 Oxygen Delivery Method Room Air 08/03/24 19:57 Discharge Plan Plan Patient Disposition: Left Against Medical Advice Prescriptions/Referrals Prescriptions/Med Rec: No Action Trelegy Ellipta 100-62.5-25 mcg blister with device 2 inh inhalation BID Qty: 60 0RF ciprofloxacin HCl [Cipro] 500 mg tablet 500 mg PO BID Qty: 20 0RF tamsulosin [Flomax] 0.4 mg capsule 0.4 mg PO QDAY Qty: 20 0RF cefuroxime axetil 500 mg tablet 500 mg PO BID 10 Days Qty: 20 0RF Referrals: No Primary/Family,Physician [Primary Care Provider] - In 1 week Problem List Clinical Impression: Acute retention of urine Patient/Caregiver Discharge Instructions Print Language: Croatian 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 Theodore [facility] Narrative MDM hospital course: 74-year-old male presents to the ED with a complaint of inability to urinate. He has been having ongoing issues for the past 6 months. He was unable to get an appointment with his urologist until late August. He was urinating normally last night but when he woke up this morning, he was unable to urinate. He is having lower pelvic pain since this morning. He denies any fever or chills, nausea or vomiting, low back pain or flank pain. Alert and oriented 74-year-old male, no acute distress. Lungs are clear, regular rate and rhythm without murmurs. Abdomen is soft nontender. No flank tenderness. Moves all extremities well. Resendez placed to gravity. CBC, CMP, urinalysis and urine culture ordered to rule out infection or acute kidney injury secondary to obstructive uropathy, however patient decided he wanted to leave without these tests being completed. Patient leaving AMA. AMA form signed and patient left in stable condition. Procedures done or offered: Resendez catheter to leg bag. Clinical Information Provided by patient Medical Records Reviewed [facility] Meds/Rx Considered, not Ordered None Labs/Rad/Tests considered, not Ordered None Describe details: CBC, CMP, CRP, urinalysis, urine culture ordered however patient does not want to have these tests run. Leaving AMA. Chronic Illness/Social Conditions which may negatively complicate care or outcome(s)-explain: None or not applicable EKG EKG not done Lab Interpretation Labs: other (CBC, CMP, CRP, urinalysis, urine culture ordered however the patient was refusing to wait to have labs done.) Lab(s) interpretation(s): Unable Imaging Imaging interpretation: none Medication Administration(s) none Dispositon Disposition: other (AMA)
[2024-08-03 21:36] LABS: Collection Type, Urine Catheter
[2024-08-03 21:48] LABS: Bilirubin,Urine Negative (Negative); Blood,Urine 2+ (Negative); Calcium Oxalate Crystals,Urine Rare; Clarity,Urine Turbid (Clear/Hazy); Color,Urine Yellow (Lt Yel-Yel); Glucose, Urine Negative (Negative); Ketones,Urine Negative (Negative); Leukocyte Esterase,Urine Positive (Negative); Nitrite,Urine Negative (Negative); Protein,Urine 1+ (Neg - Trace); RBC,Urine 190 /hpf (0-3); Specific Gravity,Urine 1.022 (1.001-1.035); Squamous Epithelial Cell,Urine 1 /hpf (0-5); Triple Phosphate Crystal,Urine 3+; Urobilinogen,Urine Negative mg/dL (0.0-1.0); WBC,Urine 104 /hpf (0-5)
--- NOTE | 2024-08-03 21:54 | PC.NURSE ---
PT STATES HE ONLY CAME IN FOR THE CATHETER AND DOES NOT WANT TO STAY FOR LAB WORK. PT STATES HE DOESN'T NEED OR WANT LAB WORK. PROVIDER INFORMED. PT WANTS TO SIGN AMA AT THIS TIME.
== END 2024-08-03 21:58 | disposition left against medical advice (07) ==
PROVIDERS: Physician Assistant; Emergency Provider Emergency Medicine
DX: R33.9 Retention of urine, unspecified (principal); Z53.29 Procedure and treatment not carried out because of patient's decision for other reasons
CPT/HCPCS: 51702; 80053; 81001; 85025; 86140; 87077; 87086; 99283; A4314

== ENCOUNTER 2024-08-11 01:54 | Emergency (ER) | payer OTHER, SELFPAY ==
[2024-08-11 01:54] VITALS: BP 138/99; PULSE 100; RESP 18; TEMP 36.8; O2SAT 97
[2024-08-11 01:55] VITALS: BMI 26.8
--- NOTE | 2024-08-11 04:39 | EDNOTE_ITS ---
<Statement entered by Ria Pennington MD - 08/22/24 21:08> As co-signing physician, I was present and available for consult prn. I concur with the plan and care as documented by the midlevel provider. ED Male Genitalurinary RME/HPI General Chief complaint: Urogenital-Male Stated complaint: NEED PATTON REMOVED Time Seen by Provider: 08/11/24 02:38 Arrival date/time: 08/11/24 01:54 Limitations: no limitations Related Data Previous Rx's ?Medication ?Instructions ?Recorded fluticasone fur. 100 mcg-umeclid 2 inh inhalation BID #60 ea 04/08/24 62.5 mcg-vilant 25 mcg inhalat.powder (Trelegy Ellipta) ciprofloxacin HCl 500 mg tablet 500 mg PO BID #20 tabs 07/08/24 (Cipro) tamsulosin 0.4 mg capsule (Flomax) 0.4 mg PO QDAY #20 caps 07/08/24 Allergies Allergy/AdvReac Type Severity Reaction Status Date / Time No Known Allergies Allergy Verified 08/11/24 01:55 Review of Systems Review of Systems Systems Reviewed: All systems reviewed, normal except as documented Constitutional Constitutional: Reports system reviewed and no additional complaints, except as documented, Denies fever(s) and Denies headache(s) ENT Ears, Nose, Mouth, and Throat: Denies disequilibrium and Denies headache(s) Cardiovascular Cardiovascular: Reports system reviewed and no additional complaints, except as documented, Denies chest pain and Denies dyspnea Respiratory Respiratory: Reports system reviewed and no additional complaints, except as documented, Denies cough and Denies dyspnea Gastrointestinal Gastrointestinal: Reports system reviewed and no additional complaints, except as documented, Denies abdominal pain, Denies nausea and Denies vomiting Neurologic Neurologic: Reports system reviewed and no additional complaints, except as documented, Denies confusion, Denies disequilibrium and Denies headache(s) Psychiatric Psychiatric: Denies confusion Past Medical History Past Medical History CARDIAC: Negative Congestive Heart Failure RESPIRATORY: Positive Chronic Obstructive Pulmonary Disease (COPD) GENITOURINARY: Negative Renal Disease ENDOCRINE: Negative Diabetes Mellitus Type 1 or Diabetes Mellitus Type 2 Social History SMOKING STATUS: Current every day smoker SUBSTANCE USE: does not use ED Exam General Limitations: Present no limitations General appearance: Present alert and in no apparent distress Head Head exam: Present atraumatic Eye Eye exam: Present normal appearance, PERRL and EOMI ENT ENT exam: Present normal exam, normal oropharynx and mucous membranes moist Neck Neck exam: Present normal inspection, full ROM and trachea midline Chest Chest inspection: Present normal inspection and symmetric chest wall rise Respiratory Respiratory exam: Present normal lung sounds bilaterally Cardiovascular Cardiovascular exam: Present regular rate, normal rhythm and normal heart sounds Abdominal Exam Abdominal exam: Present soft and normal bowel sounds Extremities Exam Extremities exam: Present normal inspection and full ROM Back Exam Back exam: Present normal inspection and full ROM Neurological Exam Neurological exam: Present alert, oriented X3 and CN II-XII intact Psychiatric Psychiatric exam: Present normal affect and normal mood Skin Skin exam: Present warm, dry, intact and normal color Course Quality Measures none Orders Category Date Time Status Urinary Catheter, Remove ONCE Care 08/11/24 02:39 Completed Vital Signs Vital signs: Vital Signs Temperature 98.2 F 08/11/24 01:54 Pulse Rate 100 08/11/24 01:54 Respiratory Rate 18 08/11/24 01:54 Blood Pressure 138/99 H 08/11/24 01:54 Pulse Oximetry (%) 97 08/11/24 01:54 Oxygen Delivery Method Room Air 08/11/24 01:54 O2 at 97% on RA and WNLs Urogenital - Male MDM Narrative MDM Narrative:: 74M with history of COPD, CAD and SVT presents to ED with wanting chronic Patton cath out because it's irritating him. Physical exam well-appearing but uncomfortable male. Patient is afebrile, calm, and alert. Patton removed, which brought immediate relief. Patient does not want to wait for void trial. Patient data External records reviewed:: [facility] previous records Clinical information provided by:: patient Social determinants that could affect healthcare access:: none Patient has the following chronic illnesses:: COPD, CAD and SVT How is presenting disease/condition affected by chronic disease/condition?: uneffected by Evaluation data The following diagnostics were reviewed and interpreted by me:: other (specify) (none) Lab and/or radiology exams considered but not ordered:: not ordered Interpretation Summary: n/a Medications / Prescriptions Medications or Prescriptions considered but not ordered:: not ordered Medication administrations:: n/a Consultations Consultation(s) initiated? (list below): No Diagnosis Urogenital Male Differential Diagnosis: urinary tract infection, priapism, urethritis, epididymitis, genital herpes simplex, prostatitis, acute retention of urine, inguinal hernia and other (Patton removal) Most likely diagnosis given after review of the tests above:: Patton removal Admission Indicated Admission indicated?: not indicated Admission Request Was there a request for admission?: No Disposition Plan Disposition Plan: Discharge Discharge Attestation Discharge Attestation: The patient and all family members were given an opportunity to ask questions and understood the discharge instructions. Discharge instructions specifically effects, indications for sooner follow up or return to the emergency department, and the expected course of current diagnosis. Patient condition: Stable Discharge Plan Plan Patient Disposition: HOME (Self Care) Discharge Disposition comment: Stable Prescriptions/Referrals Prescriptions/Med Rec: No Action Trelegy Ellipta 100-62.5-25 mcg blister with device 2 inh inhalation BID Qty: 60 0RF ciprofloxacin HCl [Cipro] 500 mg tablet 500 mg PO BID Qty: 20 0RF tamsulosin [Flomax] 0.4 mg capsule 0.4 mg PO QDAY Qty: 20 0RF Problem List Clinical Impression: Encounter for Patton catheter removal Patient/Caregiver Discharge Instructions Additional Instructions: Please follow-up with PCP within 24-48 hours and return immediately if symptoms worsen. Print Language: Romansh Stand Alone Forms: Patient Portal Info Letter SHARYN/BIANCA Supervising Physician SHARYN/BIANCA Supervising Physician: Dr. Pennington
== END 2024-08-11 02:46 | disposition home or self-care (01) ==
LOC: SERX 02:48
PROVIDERS: Emergency Provider Emergency Medicine
DX: Z46.6 Encounter for fitting and adjustment of urinary device (principal)
CPT/HCPCS: 99282

== ENCOUNTER 2024-08-11 16:48 | Emergency (ER) | payer OTHER, SELFPAY ==
[2024-08-11 16:49] VITALS: BMI 26.8
[2024-08-11 17:04] VITALS: BP 175/101; BP 193/121; PULSE 107; RESP 18; TEMP 36.5; O2SAT 96
[2024-08-11 17:06] VITALS: BMI 26.8
--- NOTE | 2024-08-11 17:24 | EDNOTE_ITS ---
ED Male Genitalurinary RME/HPI General Chief complaint: Urogenital-Male Stated complaint: URINE RETENTION Time Seen by Provider: 08/11/24 17:19 Arrival date/time: 08/11/24 16:48 RME / HPI RME / HPI Narrative: 74-year-old male patient was brought in by family for evaluation regarding acute urinary retention. Patient's been having problem with urinary retention, came in this morning and they remove the Resendez since then patient is unable to urinate. Now complaining of urinary bladder distention and discomfort severity moderate denies any fever denies any other complaints. Related Data Previous Rx's ?Medication ?Instructions ?Recorded fluticasone fur. 100 mcg-umeclid 2 inh inhalation BID #60 ea 04/08/24 62.5 mcg-vilant 25 mcg inhalat.powder (Trelegy Ellipta) ciprofloxacin HCl 500 mg tablet 500 mg PO BID #20 tabs 07/08/24 (Cipro) tamsulosin 0.4 mg capsule (Flomax) 0.4 mg PO QDAY #20 caps 07/08/24 Allergies Allergy/AdvReac Type Severity Reaction Status Date / Time No Known Allergies Allergy Verified 08/11/24 01:55 Review of Systems Review of Systems Narrative Review of Systems: Review of system reviewed and within normal limits except mentioned in HPI ED Exam Narrative Physical exam: VITAL SIGNS: Reviewed. GENERAL APPEARANCE: Alert and interactive, follows commands, no acute distress, HEAD AND FACE: Non-traumatic. ENT: PERRL, pink conjunctivitis, eyelid no trauma, Mucous membrane moist. NECK: Supple, nontender, no nuchal rigidity. ABDOMEN: Soft, positive bowel sounds, nondistended, no guarding, nontender, no rebound, no masses, RECTAL: Deferred. GENITAL: Suprapubic distention, tenderness NEUROLOGICAL: Gross motor function intact sensory function intact, Appropriate for age. MUSCULOSKELETAL: low back nontender, full range of motion. EXTREMITIES: Nontender, full range of motion. SKIN: Color pink, dry, no rash, no lacerations, no abrasions, no contusions. LYMPHATICS: Deferred. Course Quality Measures none Orders Category Date Time Status Resendez [Urinary Catheter] QS Care 08/11/24 17:24 Ordered Resendez to Leg Bag Routine Care 08/11/24 17:24 Ordered Vital Signs Vital signs: Vital Signs Temperature 97.7 F 08/11/24 17:04 Pulse Rate 107 H 08/11/24 17:04 Respiratory Rate 18 08/11/24 17:04 Blood Pressure 175/101 H 08/11/24 17:04 Pulse Oximetry (%) 96 08/11/24 17:04 Oxygen Delivery Method Room Air 08/11/24 17:04 Urogenital - Male MDM Narrative MDM Narrative:: 74-year-old male patient was brought in by family for evaluation regarding acute urinary retention. Patient's been having problem with urinary retention, came in this morning and they remove the Resendez since then patient is unable to urinate. Now complaining of urinary bladder distention and discomfort severity moderate denies any fever denies any other complaints. Resendez catheter Nepalese 16 inserted, without any difficulty. Draining more than 500 cc of clear urine. Attached to leg bag Patient told me that he had an appointment with urologist next week. Patient data External records reviewed:: None Clinical information provided by:: patient Social determinants that could affect healthcare access:: none Patient has the following chronic illnesses:: BPH How is presenting disease/condition affected by chronic disease/condition?: exacerbated by Evaluation data The following diagnostics were reviewed and interpreted by me:: other (specify) Lab and/or radiology exams considered but not ordered:: None Interpretation Summary: None Medications / Prescriptions Medications or Prescriptions considered but not ordered:: None Medication administrations:: None Consultations Consultation(s) initiated? (list below): No Diagnosis Urogenital Male Differential Diagnosis: acute retention of urine and other (BPH,, acute on chronic urinary retention) Most likely diagnosis given after review of the tests above:: Acute urinary retention Admission Indicated Admission indicated?: not indicated Admission Request Was there a request for admission?: No Disposition Plan Disposition Plan: Discharge Discharge Attestation Discharge Attestation: The patient was given an opportunity to ask questions and understood the discharge instructions. Discharge instructions specifically effects, indications for sooner follow up or return to the emergency department, and the expected course of current diagnosis. Patient condition: Stable Discharge Plan Plan Patient Disposition: HOME (Self Care) Discharge Disposition comment: Stable Prescriptions/Referrals Prescriptions/Med Rec: No Action Trelemeri Ellipta 100-62.5-25 mcg blister with device 2 inh inhalation BID Qty: 60 0RF ciprofloxacin HCl [Cipro] 500 mg tablet 500 mg PO BID Qty: 20 0RF tamsulosin [Flomax] 0.4 mg capsule 0.4 mg PO QDAY Qty: 20 0RF Problem List Clinical Impression: Acute retention of urine Patient/Caregiver Discharge Instructions Discharge Activity: activity as tolerated Education Materials: ED Urinary Retention, Male Additional Instructions: Thank you for the opportunity for serving you today. You are stable for discharged . You are advised to: Follow-up with your PCP in 1 to 2 days Return to ED for worsening of symptoms Increase oral fluids Follow-up with your urologist as instructed Print Language: Yoruba Stand Alone Forms: [facility] Award Info., Patient Portal Info Letter
[2024-08-11 18:17] VITALS: BP 156/95; PULSE 87; RESP 16; TEMP 36.9; O2SAT 99
== END 2024-08-11 18:17 | disposition home or self-care (01) ==
LOC: SERX 18:19
PROVIDERS: Emergency Provider Emergency Medicine
DX: R33.9 Retention of urine, unspecified (principal)
CPT/HCPCS: 51702; 99283; A4314

== ENCOUNTER 2024-08-17 13:54 | Emergency (ER) | payer OTHER, SELFPAY ==
[2024-08-17 14:10] VITALS: BP 174/102; PULSE 103; RESP 19; TEMP 37.2; O2SAT 97; BMI 26.8
--- NOTE | 2024-08-17 14:35 | PC.NURSE ---
Patient FC changed. FC output 900ml bright red urine. FC patient and draining gross hematuria with sediment, mucous thread and visible small clots. FC flushed with 50cc sterile saline x4 with accurate return, FC continued to drain pale pink urine. Provider Augusto made aware, provider informed patient that he wanted to order tests and patient refused. Patient stated he did not want tests and wanted to leave. Patient agreed to let this typewriter assembler flush catheter 2x more prior to leave.
--- NOTE | 2024-08-17 15:37 | PC.NURSE ---
Patient signed AMA at 1506. Patient educated on risks of AMA including . Patient alert and oriented x4. Patient encouraged to return to ED at any time.
--- NOTE | 2024-08-17 16:44 | PD.EDMALE ---
ED Male Genitalurinary RME/HPI General Chief complaint: Urogenital-Male Stated complaint: Catheter is not draining Time Seen by Provider: 08/17/24 15:03 Arrival date/time: 08/17/24 13:54 74-year-old male presents to the emergency department today for complaints that his catheter is not draining patient has been here multiple times for issues. Patient reports that he is a follow-up on August 24 with his urologist Limitations: no limitations Related Data Previous Rx's ?Medication ?Instructions ?Recorded fluticasone fur. 100 mcg-umeclid 2 inh inhalation BID #60 ea 04/08/24 62.5 mcg-vilant 25 mcg inhalat.powder (Trelegy Ellipta) ciprofloxacin HCl 500 mg tablet 500 mg PO BID #20 tabs 07/08/24 (Cipro) tamsulosin 0.4 mg capsule (Flomax) 0.4 mg PO QDAY #20 caps 07/08/24 Allergies Allergy/AdvReac Type Severity Reaction Status Date / Time No Known Allergies Allergy Verified 08/17/24 13:57 Review of Systems Review of Systems Systems Reviewed: All systems reviewed, normal except as documented Constitutional Constitutional: Reports system reviewed and no additional complaints, except as documented, Denies fever(s) and Denies headache(s) Eyes Eyes: Reports system reviewed and no additional complaints, except as documented and Denies blurry vision ENT Ears, Nose, Mouth, and Throat: Reports system reviewed and no additional complaints, except as documented, Denies headache(s), Denies nasal congestion and Denies nasal discharge Cardiovascular Cardiovascular: Reports system reviewed and no additional complaints, except as documented, Denies chest pain and Denies dyspnea Respiratory Respiratory: Reports system reviewed and no additional complaints, except as documented, Denies chest congestion, Denies cough and Denies dyspnea Gastrointestinal Gastrointestinal: Reports system reviewed and no additional complaints, except as documented and Denies abdominal pain Genitourinary Genitourinary: Reports system reviewed and no additional complaints, except as documented, Reports difficulty urinating, Reports dysuria, Reports hematuria, Reports oliguria and Reports urinary hesitancy Integumentary/Breasts Skin/Breast: Reports system reviewed and no additional complaints, except as documented and Denies rash Neurologic Neurologic: Reports system reviewed and no additional complaints, except as documented, Reports as per HPI and Denies headache(s) Past Medical History Past Medical History CARDIAC: Negative Congestive Heart Failure RESPIRATORY: Positive Chronic Obstructive Pulmonary Disease (COPD) GENITOURINARY: Negative Renal Disease ENDOCRINE: Negative Diabetes Mellitus Type 1 or Diabetes Mellitus Type 2 Social History SMOKING STATUS: Current every day smoker SUBSTANCE USE: does not use ED Exam General Limitations: Present no limitations General appearance: Present alert and in no apparent distress Head Head exam: Present atraumatic Eye Eye exam: Present normal appearance, PERRL and EOMI ENT ENT exam: Present normal exam, normal oropharynx and mucous membranes moist Neck Neck exam: Present normal inspection, full ROM and trachea midline Chest Chest inspection: Present normal inspection and symmetric chest wall rise Respiratory Respiratory exam: Present normal lung sounds bilaterally Cardiovascular Cardiovascular exam: Present regular rate, normal rhythm and normal heart sounds Abdominal Exam Abdominal exam: Present soft and normal bowel sounds; Absent distention, tenderness, guarding, rebound or rigidity Extremities Exam Extremities exam: Present normal inspection and full ROM Back Exam Back exam: Present normal inspection and full ROM Neurological Exam Neurological exam: Present alert, oriented X3 and CN II-XII intact Psychiatric Psychiatric exam: Present normal affect and normal mood Skin Skin exam: Present warm, dry, intact and normal color Course Quality Measures none Orders Category Date Time Status Resendez [Urinary Catheter, Remove] NOW Care 08/17/24 14:19 Completed Resendez to Leg Bag NOW Care 08/17/24 14:19 Ordered Vital Signs Vital signs: Vital Signs Temperature 98.9 F 08/17/24 14:10 Pulse Rate 103 H 08/17/24 14:10 Respiratory Rate 19 08/17/24 14:10 Blood Pressure 174/102 H 08/17/24 14:10 Pulse Oximetry (%) 97 08/17/24 14:10 Oxygen Delivery Method Room Air 08/17/24 14:10 O2 saturation 97% room air WNL Urogenital - Male MDM Narrative MDM Narrative:: 74-year-old male presents to the emergency department today for complaints that his catheter is not draining patient has been here multiple times for issues. Patient reports that he is a follow-up on August 24 with his urologist On exam patient does not appear ill or toxic in no acute distress but patient does appear to be in quite a bit of pain Resendez catheter ordered and was replaced patient has gross amount of hematuria Resendez catheter was flushed until almost clear. Explained to the patient based on the hematuria pain and presentation I would like to do lab work and imaging patient refused. Patient signed out AGAINST MEDICAL ADVICE Patient data External records reviewed:: [facility] previous records Clinical information provided by:: patient Social determinants that could affect healthcare access:: none Patient has the following chronic illnesses:: History How is presenting disease/condition affected by chronic disease/condition?: caused by Evaluation data The following diagnostics were reviewed and interpreted by me:: lab results and radiology exam(s) Lab and/or radiology exams considered but not ordered:: Labs radiology obtain Interpretation Summary: Reviewed by me Medications / Prescriptions Medications or Prescriptions considered but not ordered:: Given Medication administrations:: Given Consultations Consultation(s) initiated? (list below): No Diagnosis Urogenital Male Differential Diagnosis: urinary tract infection and acute retention of urine Most likely diagnosis given after review of the tests above:: UTI, urinary retention Admission Indicated Admission indicated?: not indicated Admission Request Was there a request for admission?: No Disposition Plan Disposition Plan: Discharge Discharge Attestation Discharge Attestation: The patient and all family members were given an opportunity to ask questions and understood the discharge instructions. Discharge instructions specifically effects, indications for sooner follow up or return to the emergency department, and the expected course of current diagnosis. Patient condition: Stable Discharge Plan Plan Patient Disposition: Left Against Medical Advice Discharge Disposition comment: Stable Prescriptions/Referrals Prescriptions/Med Rec: No Action Marshall Townsendta 100-62.5-25 mcg blister with device 2 inh inhalation BID Qty: 60 0RF ciprofloxacin HCl [Cipro] 500 mg tablet 500 mg PO BID Qty: 20 0RF tamsulosin [Flomax] 0.4 mg capsule 0.4 mg PO QDAY Qty: 20 0RF Referrals: No Primary/Family,Physician [Primary Care Provider] - In 1 week Problem List Clinical Impression: Hematuria, Acute on chronic urinary retention Patient/Caregiver Discharge Instructions Print Language: Angolan PA/RESIDENT PHYSICIAN IN RADIOLOGY Supervising Physician PA/RESIDENT PHYSICIAN IN RADIOLOGY Supervising Physician: Dr mariano
== END 2024-08-17 15:06 | disposition left against medical advice (07) ==
LOC: SERX 15:12
PROVIDERS: Emergency Provider Emergency Medicine
DX: R31.9 Hematuria, unspecified (principal); R33.9 Retention of urine, unspecified; Z53.29 Procedure and treatment not carried out because of patient's decision for other reasons
CPT/HCPCS: 51702; 99283; A4314

== ENCOUNTER 2024-08-19 15:37 | Emergency (ER) | payer OTHER, SELFPAY ==
[2024-08-19 15:46] VITALS: BP 165/108; PULSE 87; RESP 18; TEMP 36.6; O2SAT 97
--- NOTE | 2024-08-19 16:06 | PD.EDMALE ---
ED Male Genitalurinary RME/HPI General Chief complaint: Urogenital-Male Stated complaint: LEAKING/CLOGGED CATHETER Time Seen by Provider: 08/19/24 15:38 Arrival date/time: 08/19/24 15:37 This is a 74-year-old male that comes in to the emergency room with complaints of clogged Resendez catheter. Patient states he already has an appointment with his urologist for next week Dr. Mcodnough. Patient had a Resendez catheter placed a couple days ago because of an enlarged prostate. Patient states that his catheter is leaking. Patient also has a history of chronic urinary retention, COPD. Related Data Previous Rx's ?Medication ?Instructions ?Recorded fluticasone fur. 100 mcg-umeclid 2 inh inhalation BID #60 ea 04/08/24 62.5 mcg-vilant 25 mcg inhalat.powder (Trelegy Ellipta) ciprofloxacin HCl 500 mg tablet 500 mg PO BID #20 tabs 07/08/24 (Cipro) tamsulosin 0.4 mg capsule (Flomax) 0.4 mg PO QDAY #20 caps 07/08/24 Allergies Allergy/AdvReac Type Severity Reaction Status Date / Time No Known Allergies Allergy Verified 08/29/24 09:45 Review of Systems Review of Systems Systems Reviewed: All systems reviewed, normal except as documented Past Medical History Past Medical History CARDIAC: Negative Congestive Heart Failure RESPIRATORY: Positive Chronic Obstructive Pulmonary Disease (COPD) GENITOURINARY: Negative Renal Disease ENDOCRINE: Negative Diabetes Mellitus Type 1 or Diabetes Mellitus Type 2 Social History SMOKING STATUS: Current every day smoker SUBSTANCE USE: does not use ED Exam Narrative Physical exam: VITAL SIGNS: Reviewed. GENERAL APPEARANCE: Alert and interactive, follows commands, no acute distress HEAD AND FACE: Non-traumatic. ENT: PERRL, conjuctiva pink and clear, eyelid no trauma, Mucous membrane moist. NECK: Supple, nontender, no nuchal rigidity. CHEST: No tenderness, no crepitus, no paradoxical movement, no retractions. LUNGS: breathing even and unlabored HEART: Regular rate, cap refill less than 2 seconds ABDOMEN: Soft, nondistended, no guarding, nontender NEUROLOGICAL: Gross motor function intact sensory function intact, Appropriate for age. MUSCULOSKELETAL: low back nontender, full range of motion. EXTREMITIES: No redness no swelling no skin breakdown on bilateral foot and leg. Distal neurovascular status intact bilateral foot SKIN: Color pink, dry, no rash, no lacerations, no abrasions, no contusions. Course Quality Measures none Orders Category Date Time Status Resendez [Urinary Catheter] QS Care 08/19/24 16:07 Completed Urinalysis, C/S if Indicated Stat Lab 08/19/24 16:28 Completed Urine Culture Stat Lab 08/19/24 16:28 Completed cefTRIAXone [Rocephin] 1,000 mg Med 08/19/24 17:26 Discontinued Lidocaine 1% 20 ml [Xylocaine 1% 20 ML] 2.1 ml IM X1 Vital Signs Vital signs: Vital Signs Temperature 97.9 F 08/19/24 15:46 Pulse Rate 87 08/19/24 15:46 Respiratory Rate 18 08/19/24 15:46 Blood Pressure 165/108 H 08/19/24 15:46 Pulse Oximetry (%) 97 08/19/24 15:46 Oxygen Delivery Method Room Air 08/19/24 15:46 Urogenital - Male MDM Narrative MDM Narrative:: Spoke to patient at length. Patient feels better after Resendez catheter removed and new one placed. I told patient I did give him a dose of antibiotics to treat UTI. I we will send patient home with antibiotics. Patient did not want pain medication. Patient has not an appointment with Dr. Mcdonough, urology. I told patient to come back to the emergency room if symptoms change or worsen. Resendez catheter draining well. Patient verbalized understanding Patient data External records reviewed:: [facility] previous records Clinical information provided by:: patient Social determinants that could affect healthcare access:: none Patient has the following chronic illnesses:: see hpi How is presenting disease/condition affected by chronic disease/condition?: no chronic disease Evaluation data The following diagnostics were reviewed and interpreted by me:: lab results Lab and/or radiology exams considered but not ordered:: none Interpretation Summary: see note Medications / Prescriptions Medications or Prescriptions considered but not ordered:: none Medication administrations:: Medication Administration History Discontinued Medications Ceftriaxone Sodium 1,000 mg/ (Lidocaine HCl 2.1 ml) 0 mg IM X1 ONE Stop: 08/19/24 17:27 Last Admin: 08/19/24 17:45 Dose: 1,000 mg Documented By: KF Comments: 2.1 ml see mar Consultations Consultation(s) initiated? (list below): No Diagnosis Urogenital Male Differential Diagnosis: urinary tract infection, urethritis, epididymitis, prostatitis and acute retention of urine Most likely diagnosis given after review of the tests above:: uti, urinary retention Admission Indicated Admission indicated?: not indicated Admission Request Was there a request for admission?: No Disposition Plan Disposition Plan: Discharge Discharge Attestation Discharge Attestation: The patient and all family members were given an opportunity to ask questions and understood the discharge instructions. Discharge instructions specifically effects, indications for sooner follow up or return to the emergency department, and the expected course of current diagnosis. Patient condition: Stable Discharge Plan Plan Patient Disposition: HOME (Self Care) Patient condition on transfer: Stable Prescriptions/Referrals Prescriptions/Med Rec: No Action Trelegy Ellipta 100-62.5-25 mcg blister with device 2 inh inhalation BID Qty: 60 0RF ciprofloxacin HCl [Cipro] 500 mg tablet 500 mg PO BID Qty: 20 0RF tamsulosin [Flomax] 0.4 mg capsule 0.4 mg PO QDAY Qty: 20 0RF Referrals: No Primary/Family,Physician [Primary Care Provider] - In 1 week Problem List Clinical Impression: Encounter for assessment of Resendez catheter, Hematuria, Encounter for Resendez catheter removal, Encounter for Resendez catheter replacement, Acute UTI Patient/Caregiver Discharge Instructions Discharge Activity: activity as tolerated Education Materials: ED Hematuria, ED Bladder Infection, Male (Adult) Additional Instructions: Follow up with primary provider in 1-2 days. Come back to ED if symptoms change or worsen Print Language: Beninese Stand Alone Forms: Shirley Award Info., Patient Portal Info Letter PA/ELECTRIC SHOVEL OPERATOR Supervising Physician PA/ELECTRIC SHOVEL OPERATOR Supervising Physician: albertina
[2024-08-19 16:41] LABS: Collection Type, Urine Voided
[2024-08-19 17:19] LABS: Amorphous Crystals,Urine Present (Absent); Bilirubin,Urine Negative (Negative); Blood,Urine 2+ (Negative); Clarity,Urine Turbid (Clear/Hazy); Color,Urine Yellow (Lt Yel-Yel); Culture Indicated,Urine Not Indicated; Glucose, Urine Negative (Negative); Ketones,Urine Negative (Negative); Leukocyte Esterase,Urine Positive (Negative); Nitrite,Urine Negative (Negative); PH,Urine 8.5 (5.0-7.0); Protein,Urine 2+ (Neg - Trace); RBC,Urine 236 /hpf (0-3); Specific Gravity,Urine 1.018 (1.001-1.035); Squamous Epithelial Cell,Urine < 1 /hpf (0-5); Triple Phosphate Crystal,Urine 2+; Urobilinogen,Urine Negative mg/dL (0.0-1.0); WBC,Urine 2 /hpf (0-5)
[2024-08-19] MEDS: cefTRIAXone 1,000 MG, LIDOCAINE 1% 20 ML 2.1 ML IM (17:45)
== END 2024-08-19 17:53 | disposition home or self-care (01) ==
PROVIDERS: Nurse Practitioner Family; Emergency Provider Family Medicine
DX: Z46.6 Encounter for fitting and adjustment of urinary device (principal); N39.0 Urinary tract infection, site not specified; J44.9 Chronic obstructive pulmonary disease, unspecified
CPT/HCPCS: 51702; 81001; 87086; 96372; 99283; A4314; J0696; J3490

== ENCOUNTER → 2024-08-24 | Outpatient (CLI) | payer OTHER, SELFPAY ==
[2024-08-24 14:31] LABS: Prostate Specific Antigen 8.91 ng/mL (0-4.00)
== END | disposition home or self-care (01) ==
LOC: COPL 13:49
PROVIDERS: Referring Provider Urology; Visit Provider Urology
DX: N40.1 Benign prostatic hyperplasia with lower urinary tract symptoms (principal)
CPT/HCPCS: 36415; 84153

== ENCOUNTER 2024-08-29 09:43 | Emergency (ER) | payer OTHER, SELFPAY ==
[2024-08-29 09:44] VITALS: BMI 26.8
[2024-08-29 10:06] VITALS: BP 143/89; PULSE 85; RESP 18; TEMP 36.9; O2SAT 96
--- NOTE | 2024-08-29 10:12 | PD.EDABDPN ---
ED Abdominal Pain RME/HPI General Chief Complaint: General Adult/Misc Complain Stated complaint: CHANGE PATTON CATHETER Time seen by provider: 08/29/24 10:13 Arrival date/time: 08/29/24 09:43 74-year-old male with a history of BPH presents to the emergency room with a chief complaint of needing his catheter changed. Patient denies any dysuria any hematuria and states that he is only here for catheter change. Source: patient Mode of arrival: ambulatory Limitations: no limitations Related Data Previous Rx's ?Medication ?Instructions ?Recorded fluticasone fur. 100 mcg-umeclid 2 inh inhalation BID #60 ea 04/08/24 62.5 mcg-vilant 25 mcg inhalat.powder (Trelegy Ellipta) ciprofloxacin HCl 500 mg tablet 500 mg PO BID #20 tabs 07/08/24 (Cipro) tamsulosin 0.4 mg capsule (Flomax) 0.4 mg PO QDAY #20 caps 07/08/24 Allergies Allergy/AdvReac Type Severity Reaction Status Date / Time No Known Allergies Allergy Verified 08/29/24 09:45 Review of Systems Review of Systems Systems Reviewed: All systems reviewed, normal except as documented Constitutional Constitutional: Reports system reviewed and no additional complaints, except as documented, Denies fatigue, Denies fever(s), Denies headache(s) and Denies weakness Eyes Eyes: Reports system reviewed and no additional complaints, except as documented, Denies blurry vision and Denies change in vision ENT Ears, Nose, Mouth, and Throat: Reports system reviewed and no additional complaints, except as documented, Denies otalgia, Denies headache(s), Denies nasal congestion, Denies throat swelling and Denies vertigo Cardiovascular Cardiovascular: Reports system reviewed and no additional complaints, except as documented, Denies chest pain, Denies dyspnea and Denies dyspnea on exertion Respiratory Respiratory: Reports system reviewed and no additional complaints, except as documented, Denies chest congestion, Denies cough, Denies dyspnea, Denies dyspnea on exertion and Denies wheezing Gastrointestinal Gastrointestinal: Reports system reviewed and no additional complaints, except as documented, Denies abdominal pain, Denies cramping, Denies nausea and Denies vomiting Genitourinary Genitourinary: Reports system reviewed and no additional complaints, except as documented, Denies dysuria and Denies hematuria Musculoskeletal Musculoskeletal: Reports system reviewed and no additional complaints, except as documented and Denies back pain Integumentary/Breasts Skin/Breast: Reports system reviewed and no additional complaints, except as documented and Denies wounds Neurologic Neurologic: Reports system reviewed and no additional complaints, except as documented, Denies confusion, Denies headache(s), Denies lack of coordination, Denies vertigo and Denies weakness Psychiatric Psychiatric: Reports system reviewed and no additional complaints, except as documented, Denies anxiety, Denies confusion, Denies depression, Denies paranoia, Denies suicidal ideation and Denies tactile hallucinations Endocrine Endocrine: Reports system reviewed and no additional complaints, except as documented and Denies fatigue Hematologic/Lymphatic Hematologic/Lymphatic: Reports system reviewed and no additional complaints, except as documented and Denies lymphadenopathy Allergic/Immunologic Allergic/Immunologic: Reports system reviewed and no additional complaints, except as documented, Denies throat swelling, Denies urticaria and Denies wheezing Past Medical History Past Medical History CARDIAC: Negative Congestive Heart Failure RESPIRATORY: Positive Chronic Obstructive Pulmonary Disease (COPD) GENITOURINARY: Negative Renal Disease ENDOCRINE: Negative Diabetes Mellitus Type 1 or Diabetes Mellitus Type 2 Social History SMOKING STATUS: Current every day smoker SUBSTANCE USE: does not use ED Exam General Limitations: Present no limitations General appearance: Present alert and in no apparent distress Head Head exam: Present atraumatic Eye Eye exam: Present normal appearance, PERRL and EOMI ENT ENT exam: Present normal exam, normal oropharynx and mucous membranes moist Neck Neck exam: Present normal inspection, full ROM and trachea midline Chest Chest inspection: Present normal inspection and symmetric chest wall rise Respiratory Respiratory exam: Present normal lung sounds bilaterally Cardiovascular Cardiovascular exam: Present regular rate, normal rhythm and normal heart sounds Abdominal Exam Abdominal exam: Present soft and normal bowel sounds; Absent distention, tenderness, guarding, rebound or rigidity Extremities Exam Extremities exam: Present normal inspection and full ROM Back Exam Back exam: Present normal inspection and full ROM Neurological Exam Neurological exam: Present alert, oriented X3 and CN II-XII intact Psychiatric Psychiatric exam: Present normal affect and normal mood Skin Skin exam: Present warm, dry, intact and normal color Course Quality Measures none Orders Category Date Time Status Patton [Urinary Catheter, Remove] ONCE Care 08/29/24 10:12 Completed Patton [Urinary Catheter] QS Care 08/29/24 10:12 Completed Patton to Leg Bag Routine Care 08/29/24 10:12 Ordered Vital Signs Vital signs: Vital Signs Temperature 98.4 F 08/29/24 10:06 Pulse Rate 85 08/29/24 10:06 Respiratory Rate 18 08/29/24 10:06 Blood Pressure 143/89 H 08/29/24 10:06 Pulse Oximetry (%) 96 08/29/24 10:06 Oxygen Delivery Method Room Air 08/29/24 10:06 Abdominal Pain MDM MDM Narrative MDM Narrative:: 74-year-old male with a history of BPH presents to the emergency room with a chief complaint of needing his catheter changed. Patient denies any dysuria any hematuria and states that he is only here for catheter change. Patient is hemodynamically stable and in no apparent distress Physical examination shows a soft nontender abdomen. Patient states he is needing his catheter changed and replaced because it is leaking. Patient denies any dysuria hematuria and states he has an appointment with his urologist this Tuesday. Catheter was replaced with no complications Patient was discharged and educated to follow-up with primary care provider in the next 24 to 48 hours and return to the emergency room for any evidence of worsening signs or symptoms Patient data External records reviewed:: [facility] previous records Clinical information provided by:: patient Social determinants that could affect healthcare access:: none Patient has the following chronic illnesses:: BPH How is presenting disease/condition affected by chronic disease/condition?: caused by Evaluation data The following diagnostics were reviewed and interpreted by me:: lab results and radiology exam(s) Lab and/or radiology exams considered but not ordered:: Labs and radiology exams considered and ordered Interpretation Summary: N/A Medications / Prescriptions Medications or Prescriptions considered but not ordered:: No medication given Medication administrations:: No medication given Consultations Consultation(s) initiated? (list below): No Diagnosis Differential diagnosis abdominal pain: abdominal pain and other (Encounter number for catheter change/BPH/urinary tract infection) Most likely diagnosis given after review of the tests above:: Encounter for catheter change Admission Indicated Admission indicated?: not indicated Admission Request Was there a request for admission?: No Disposition Plan Disposition Plan: Discharge Discharge Attestation Discharge Attestation: The patient and all family members were given an opportunity to ask questions and understood the discharge instructions. Discharge instructions specifically effects, indications for sooner follow up or return to the emergency department, and the expected course of current diagnosis. Patient condition: Stable Discharge Plan Plan Patient Disposition: HOME (Self Care) Discharge Disposition comment: Stable Prescriptions/Referrals Prescriptions/Med Rec: No Action Marshall Watkins 100-62.5-25 mcg blister with device 2 inh inhalation BID Qty: 60 0RF ciprofloxacin HCl [Cipro] 500 mg tablet 500 mg PO BID Qty: 20 0RF tamsulosin [Flomax] 0.4 mg capsule 0.4 mg PO QDAY Qty: 20 0RF Problem List Clinical Impression: Encounter for Patton catheter replacement Patient/Caregiver Discharge Instructions Additional Instructions: Please keep your appointment with your urologist on Tuesday Please follow-up with your primary care provider in the next 24 to 48 hours Your catheter was replaced with no complications. For any evidence of worsening signs or symptoms return to the emergency room immediately Print Language: Sammarinese Stand Alone Forms: Shirley Award Info., Patient Portal Info Letter PA/MANUFACTURING PROCESS ENGINEER Supervising Physician PA/MANUFACTURING PROCESS ENGINEER Supervising Physician: Dr. HALL
== END 2024-08-29 10:49 | disposition home or self-care (01) ==
LOC: SERX 10:49
PROVIDERS: Emergency Provider Emergency Medicine
DX: Z46.6 Encounter for fitting and adjustment of urinary device (principal); N40.0 Benign prostatic hyperplasia without lower urinary tract symptoms
CPT/HCPCS: 51702; 99283; A4314

== ENCOUNTER 2024-11-20 16:33 | Emergency (ER) | payer OTHER, SELFPAY ==
[2024-11-20 16:44] VITALS: BP 194/93; PULSE 117; RESP 22; TEMP 36.7; O2SAT 96; BMI 26.8
--- NOTE | 2024-11-20 16:45 | EDNOTE_ITS ---
ED Male Genitalurinary RME/HPI General Chief complaint: General Adult/Misc Complain Stated complaint: UNABLE TO URINATE SINCE LAST NIGHT Time Seen by Provider: 11/20/24 16:38 Source: patient, RN notes reviewed and old records reviewed Arrival date/time: 11/20/24 16:33 Mode of arrival: ambulatory Limitations: no limitations RME / HPI RME / HPI Narrative: 74yom with hx of BPH presents to the ED for urinary retention. Patient reports unable to urinate since last night. Resendez cath has been out for the past 1.5 months. No fever, nausea/vomiting or flank pain reported. Patient complains of suprapubic/bladder pressure. 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 Related Data Previous Rx's ?Medication ?Instructions ?Recorded fluticasone fur. 100 mcg-umeclid 2 inh inhalation BID #60 ea 04/08/24 62.5 mcg-vilant 25 mcg inhalat.powder (Trelegy Ellipta) ciprofloxacin HCl 500 mg tablet 500 mg PO BID #20 tabs 07/08/24 (Cipro) tamsulosin 0.4 mg capsule (Flomax) 0.4 mg PO QDAY #20 caps 07/08/24 Allergies Allergy/AdvReac Type Severity Reaction Status Date / Time No Known Allergies Allergy Verified 11/20/24 16:35 Review of Systems Review of Systems Systems Reviewed: All systems reviewed, normal except as documented Genitourinary Genitourinary: Reports difficulty urinating Past Medical History Past Medical History RESPIRATORY: Positive Chronic Obstructive Pulmonary Disease (COPD) GENITOURINARY: Positive Benign Prostatic Hyperplasia Social History SMOKING STATUS: Current every day smoker SUBSTANCE USE: does not use ALCOHOL: Never ED Exam General Limitations: Present no limitations General appearance: Present alert, in no apparent distress and other (appears uncomfortable 2/2 pain) Head Head exam: Present atraumatic and normocephalic Eye Eye exam: Present normal appearance, PERRL and EOMI ENT ENT exam: Present normal exam and mucous membranes moist Neck Neck exam: Present normal inspection and full ROM Chest Chest inspection: Present normal inspection and symmetric chest wall rise Respiratory Respiratory exam: Present normal lung sounds bilaterally; Absent respiratory distress Cardiovascular Cardiovascular exam: Present normal rhythm and tachycardia Abdominal Exam Abdominal exam: Present distention (bladder) and tenderness (suprapubic); Absent guarding or rebound Extremities Exam Extremities exam: Present normal inspection and full ROM Back Exam Back exam: Absent CVA tenderness (R) or CVA tenderness (L) Neurological Exam Neurological exam: Present alert and oriented X3 Psychiatric Psychiatric exam: Present normal affect and normal mood Skin Skin exam: Present warm, dry, intact and normal color Course Quality Measures none Orders Category Date Time Status Resendez [Urinary Catheter] QS Care 11/20/24 16:44 Completed Resendez to Leg Bag Routine Care 11/20/24 16:44 Ordered HYDROcodone*/APAP 7.5/325 [[place] 7.5/325] Med 11/20/24 16:51 Discontinued 1 tab PO X1 ONE Ibuprofen Tab [Motrin Tab] Med 11/20/24 16:51 Discontinued 600 mg PO X1 ONE Vital Signs Vital signs: Vital Signs Temperature 98.0 F 11/20/24 16:44 Pulse Rate 117 H 11/20/24 16:44 Respiratory Rate 22 H 11/20/24 16:44 Blood Pressure 194/93 H 11/20/24 16:44 Pulse Oximetry (%) 96 11/20/24 16:44 Urogenital - Male MDM Narrative MDM Narrative:: 74yom with hx of BPH presents to the ED for urinary retention. Patient reports unable to urinate since last night. Resendez cath has been out for the past 1.5 months. No fever, nausea/vomiting or flank pain reported. Patient complains of suprapubic/bladder pressure. 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 Pain resolved, vitals improved after Resendez catheter placed. 400 cc of retained urine drained. Recommended close follow-up with his urologist. Stable for discharge, RTED precautions given Patient data External records reviewed:: [facility] previous records (08/29/2024 ED visit for Resendez catheter replacement) Clinical information provided by:: patient Social determinants that could affect healthcare access:: none Patient has the following chronic illnesses:: BPH How is presenting disease/condition affected by chronic disease/condition?: caused by Evaluation data The following diagnostics were reviewed and interpreted by me:: other (specify) (none) Lab and/or radiology exams considered but not ordered:: UA: denies dysuria or hematuria Interpretation Summary: na Medications / Prescriptions Medications or Prescriptions considered but not ordered:: No antibiotics recommended at this time Medication administrations:: Medication Administration History Discontinued Medications Hydrocodone Bitart/Acetaminophen (Hydrocodone/Apap 7.5/325 Tablet) 1 tab PO X1 ONE Stop: 11/20/24 16:52 Last Admin: 11/20/24 17:01 Dose: 1 tab Documented By: LESTER Ibuprofen (Ibuprofen Tab 600 Mg Tablet) 600 mg PO X1 ONE Stop: 11/20/24 16:52 Last Admin: 11/20/24 17:01 Dose: 600 mg Documented By: LESTER Above medications administered in ED Consultations Consultation(s) initiated? (list below): No Diagnosis Urogenital Male Differential Diagnosis: urinary tract infection, urethritis, prostatitis and acute retention of urine Most likely diagnosis given after review of the tests above:: Urinary retention, BPH Admission Indicated Admission indicated?: not indicated Admission Request Was there a request for admission?: No Disposition Plan Disposition Plan: Discharge Discharge Attestation Discharge Attestation: The patient and all family members were given an opportunity to ask questions and understood the discharge instructions. Discharge instructions specifically effects, indications for sooner follow up or return to the emergency department, and the expected course of current diagnosis. Patient condition: Stable Discharge Plan Plan Patient Disposition: HOME (Self Care) Patient condition on transfer: Stable Prescriptions/Referrals Prescriptions/Med Rec: No Action Trelegy Ellipta 100-62.5-25 mcg blister with device 2 inh inhalation BID Qty: 60 0RF ciprofloxacin HCl [Cipro] 500 mg tablet 500 mg PO BID Qty: 20 0RF tamsulosin [Flomax] 0.4 mg capsule 0.4 mg PO QDAY Qty: 20 0RF Referrals: No Primary/Family,Physician [Primary Care Provider] - In 1 week Problem List Clinical Impression: Acute urinary retention Patient/Caregiver Discharge Instructions Education Materials: ED Urinary Retention, Male Additional Instructions: Follow-up with your urologist as scheduled. Print Language: Urdu Stand Alone Forms: Shirley Award Info., Patient Portal Info Letter PA/SOFTWARE SALES EXECUTIVE Supervising Physician PA/BIANCA Supervising Physician: Denilson
[2024-11-20] MEDS: HYDROcodone/APAP 7.5/325 TABLET 1 TAB PO (17:01)
[2024-11-20] MEDS: IBUPROFEN TAB 600 MG TABLET PO (17:01)
--- NOTE | 2024-11-20 17:31 | PC.NURSE ---
400ML DRAINED FROM PATTON CATHETER BEFORE PLACING LEG BAG ON PT, PT 0/10 PAIN AT THIS TIME, NO SIGNS OF RESP DISTRESS.
[2024-11-20 17:39] VITALS: BP 132/80; PULSE 80; RESP 16; TEMP 36.8; O2SAT 98
== END 2024-11-20 17:40 | disposition home or self-care (01) ==
PROVIDERS: Emergency Provider Emergency Medicine
DX: N40.1 Benign prostatic hyperplasia with lower urinary tract symptoms (principal); R33.8 Other retention of urine
CPT/HCPCS: 51702; 99284; A4314; A9270

== ENCOUNTER 2024-11-22 19:51 | Emergency (ER) | payer OTHER, SELFPAY ==
[2024-11-22 19:52] VITALS: BMI 26.8
[2024-11-22 20:57] VITALS: BP 154/98; PULSE 88; RESP 17; TEMP 36.6; O2SAT 96
--- NOTE | 2024-11-22 21:18 | PD.EDMALE ---
ED Male Genitalurinary RME/HPI General Chief complaint: Urogenital-Male Stated complaint: PATTON NOT DRAINING FOR A FEW HOURS Time Seen by Provider: 11/22/24 21:05 Arrival date/time: 11/22/24 19:51 74M with history of COPD, CAD and SVT presents to ED with clogged Patton and urine leaking from side. Limitations: no limitations Related Data Previous Rx's ?Medication ?Instructions ?Recorded fluticasone fur. 100 mcg-umeclid 2 inh inhalation BID #60 ea 04/08/24 62.5 mcg-vilant 25 mcg inhalat.powder (Trelegy Ellipta) ciprofloxacin HCl 500 mg tablet 500 mg PO BID #20 tabs 07/08/24 (Cipro) tamsulosin 0.4 mg capsule (Flomax) 0.4 mg PO QDAY #20 caps 07/08/24 Allergies Allergy/AdvReac Type Severity Reaction Status Date / Time No Known Allergies Allergy Verified 11/22/24 19:52 Review of Systems Review of Systems Systems Reviewed: All systems reviewed, normal except as documented Past Medical History Past Medical History CARDIAC: Negative Congestive Heart Failure RESPIRATORY: Positive Chronic Obstructive Pulmonary Disease (COPD) GENITOURINARY: Positive Benign Prostatic Hyperplasia; Negative Renal Disease ENDOCRINE: Negative Diabetes Mellitus Type 1 or Diabetes Mellitus Type 2 Social History SMOKING STATUS: Current every day smoker SUBSTANCE USE: does not use ED Exam General Limitations: Present no limitations General appearance: Present alert and in no apparent distress Head Head exam: Present atraumatic Neck Neck exam: Present normal inspection, full ROM and trachea midline Chest Chest inspection: Present normal inspection and symmetric chest wall rise Neurological Exam Neurological exam: Present alert and oriented X3 Psychiatric Psychiatric exam: Present normal affect and normal mood Skin Skin exam: Present warm, dry, intact and normal color Course Quality Measures none Orders Category Date Time Status Patton [Urinary Catheter] QS Care 11/22/24 21:06 Active Patton to Leg Bag Routine Care 11/22/24 21:06 Ordered Vital Signs Vital signs: Vital Signs Temperature 97.8 F 11/22/24 20:57 Pulse Rate 88 11/22/24 20:57 Respiratory Rate 17 11/22/24 20:57 Blood Pressure 154/98 H 11/22/24 20:57 Pulse Oximetry (%) 96 11/22/24 20:57 Oxygen Delivery Method Room Air 11/22/24 20:57 O2 at 96% on RA and WNLs Urogenital - Male MDM Narrative MDM Narrative:: 74M with history of COPD, CAD and SVT presents to ED with clogged Patton and urine leaking from side. Physical exam well-appearing but uncomfortable male. Patient is afebrile, calm, and alert. Patton exchanged. Urine flowed freely. Patient data External records reviewed:: [facility] previous records Clinical information provided by:: patient Social determinants that could affect healthcare access:: none Patient has the following chronic illnesses:: COPD, CAD and SVT How is presenting disease/condition affected by chronic disease/condition?: uneffected by Evaluation data The following diagnostics were reviewed and interpreted by me:: other (specify) (none) Lab and/or radiology exams considered but not ordered:: not ordered Interpretation Summary: n/a Medications / Prescriptions Medications or Prescriptions considered but not ordered:: not ordered Medication administrations:: n/a Consultations Consultation(s) initiated? (list below): No Diagnosis Urogenital Male Differential Diagnosis: urinary tract infection, priapism, urethritis, epididymitis, genital herpes simplex, prostatitis, acute retention of urine, inguinal hernia and other (Patton replacement) Most likely diagnosis given after review of the tests above:: Patton replacement Admission Indicated Admission indicated?: not indicated Admission Request Was there a request for admission?: No Disposition Plan Disposition Plan: Discharge Discharge Attestation Discharge Attestation: The patient and all family members were given an opportunity to ask questions and understood the discharge instructions. Discharge instructions specifically effects, indications for sooner follow up or return to the emergency department, and the expected course of current diagnosis. Patient condition: Stable Discharge Plan Plan Patient Disposition: HOME (Self Care) Discharge Disposition comment: Stable Prescriptions/Referrals Prescriptions/Med Rec: No Action Marshall Ellipta 100-62.5-25 mcg blister with device 2 inh inhalation BID Qty: 60 0RF ciprofloxacin HCl [Cipro] 500 mg tablet 500 mg PO BID Qty: 20 0RF tamsulosin [Flomax] 0.4 mg capsule 0.4 mg PO QDAY Qty: 20 0RF Referrals: No Primary/Family,Physician [Primary Care Provider] - In 1 week Problem List Clinical Impression: Encounter for Patton catheter replacement Patient/Caregiver Discharge Instructions Education Materials: ED Patton Catheter, Care Additional Instructions: Please follow-up with PCP within 24-48 hours and return immediately if symptoms worsen. Print Language: Mohawk Stand Alone Forms: Patient Portal Info Letter PA/COUNTY RECORDS MANAGEMENT OFFICER Supervising Physician PA/COUNTY RECORDS MANAGEMENT OFFICER Supervising Physician: Dr. Israel
== END 2024-11-22 22:00 | disposition home or self-care (01) ==
PROVIDERS: Emergency Provider Emergency Medicine
DX: Z46.6 Encounter for fitting and adjustment of urinary device (principal)
CPT/HCPCS: 51702; 99284; A4314

== ENCOUNTER 2024-11-26 22:43 | Emergency (ER) | payer OTHER, SELFPAY ==
[2024-11-26 22:43] VITALS: BMI 26.8
[2024-11-26 23:05] VITALS: BP 155/89; PULSE 82; RESP 20; TEMP 36.8; O2SAT 96
--- NOTE | 2024-11-26 23:22 | PD.EDMALE ---
ED Male Genitalurinary RME/HPI General Chief complaint: Urogenital-Male Stated complaint: CATHETER CAME OUT Time Seen by Provider: 11/26/24 23:22 Source: patient Arrival date/time: 11/26/24 22:43 Mode of arrival: ambulatory Limitations: no limitations RME / HPI RME / HPI Narrative: Requesting the catheter be reinserted. Patient tells me he is not able to urinate and is awaiting an MRI MD Complaint: other (Unable to urinate without a catheter) Severity: moderate Severity scale (1-10): 5 Relieving factors: other (Catheter) Exacerbating factors: none Related Data Sexually active: No Previous Rx's ?Medication ?Instructions ?Recorded fluticasone fur. 100 mcg-umeclid 2 inh inhalation BID #60 ea 04/08/24 62.5 mcg-vilant 25 mcg inhalat.powder (Trelegy Ellipta) ciprofloxacin HCl 500 mg tablet 500 mg PO BID #20 tabs 07/08/24 (Cipro) tamsulosin 0.4 mg capsule (Flomax) 0.4 mg PO QDAY #20 caps 07/08/24 cephalexin 500 mg capsule 500 mg PO TID 7 days #21 caps 11/25/24 Allergies Allergy/AdvReac Type Severity Reaction Status Date / Time No Known Allergies Allergy Verified 11/25/24 10:34 ED Exam General Limitations: Present no limitations General appearance: Present alert and in no apparent distress Head Head exam: Present atraumatic Eye Eye exam: Present normal appearance ENT ENT exam: Present normal exam Neck Neck exam: Present normal inspection Extremities Exam Extremities exam: Present normal inspection and full ROM Back Exam Back exam: Present normal inspection and full ROM Neurological Exam Neurological exam: Present alert and oriented X3 Psychiatric Psychiatric exam: Present normal affect and normal mood Skin Skin exam: Present warm, dry, intact and normal color Course Course Course Narrative: Catheter to be inserted Quality Measures none (NA) Orders Category Date Time Status Urinary Catheter QS Care 11/26/24 23:27 Active NA Reevaluation(s) Reevaluation #1: NA Additional Reevaluation(s): NA Vital Signs Vital signs: Vital Signs Temperature 98.2 F 11/26/24 23:05 Pulse Rate 82 11/26/24 23:05 Respiratory Rate 20 11/26/24 23:05 Blood Pressure 155/89 H 11/26/24 23:05 Pulse Oximetry (%) 96 11/26/24 23:05 Oxygen Delivery Method Room Air 11/26/24 23:05 Pulse ox is 96% room air Urogenital - Male MDM Narrative MDM Narrative:: Patient will have a catheter inserted and then be discharged Patient data External records reviewed:: Other (specify) (NA) Clinical information provided by:: patient Social determinants that could affect healthcare access:: none (NA) Patient has the following chronic illnesses:: Urinary retention How is presenting disease/condition affected by chronic disease/condition?: caused by (Unknown) Evaluation data The following diagnostics were reviewed and interpreted by me:: other (specify) (NA) Lab and/or radiology exams considered but not ordered:: NA Interpretation Summary: Resendez catheter change Medications / Prescriptions Medications or Prescriptions considered but not ordered:: NA Medication administrations:: NA Consultations Consultation(s) initiated? (list below): No Consultation #1 (Physician, Specialty, Details): NA Diagnosis Urogenital Male Differential Diagnosis: priapism, urethritis and acute retention of urine Most likely diagnosis given after review of the tests above:: NA Admission Indicated Admission indicated?: not indicated Explain why admission is indicated or not indicated:: NA Admission Request Was there a request for admission?: No Disposition Plan Disposition Plan: Discharge Discharge Attestation Discharge Attestation: The patient and all family members were given an opportunity to ask questions and understood the discharge instructions. Discharge instructions specifically effects, indications for sooner follow up or return to the emergency department, and the expected course of current diagnosis. Patient condition: Stable Discharge Plan Plan Patient Disposition: HOME (Self Care) Discharge Disposition comment: Discharge no apparent distress Patient condition on transfer: Stable Prescriptions/Referrals Prescriptions/Med Rec: No Action Marshall Watkins 100-62.5-25 mcg blister with device 2 inh inhalation BID Qty: 60 0RF cephalexin 500 mg capsule 500 mg PO TID 7 Days Qty: 21 0RF ciprofloxacin HCl [Cipro] 500 mg tablet 500 mg PO BID Qty: 20 0RF tamsulosin [Flomax] 0.4 mg capsule 0.4 mg PO QDAY Qty: 20 0RF Problem List Clinical Impression: Encounter for Resendez catheter fitting and adjustment Patient/Caregiver Discharge Instructions Discharge Activity: activity as tolerated Print Language: Italian Stand Alone Forms: Shirley Award Info., Patient Portal Info Letter PA/LANDSCAPE CONTRACTOR Supervising Physician SHARYN/LANDSCAPE CONTRACTOR Supervising Physician: Jhonatan
== END 2024-11-27 00:35 | disposition home or self-care (01) ==
LOC: SERX 11-27 00:17
PROVIDERS: Emergency Provider Emergency Medicine
DX: Z46.6 Encounter for fitting and adjustment of urinary device (principal)
CPT/HCPCS: 51702; 99284; A4314

== ENCOUNTER 2024-11-28 05:41 | Emergency (ER) | payer OTHER, SELFPAY ==
[2024-11-28 05:42] VITALS: BP 175/104; PULSE 82; RESP 18; TEMP 36.9; O2SAT 97; BMI 26.8
--- NOTE | 2024-11-28 06:32 | EDNOTE_ITS ---
ED Male Genitalurinary RME/HPI General Chief complaint: Urogenital-Male Stated complaint: CATHETER CAME OUT Time Seen by Provider: 11/28/24 06:12 Arrival date/time: 11/28/24 05:41 RME / HPI RME / HPI Narrative: 74-year-old male here for evaluation of urinary retention. States that he had Resendez catheter that accidentally fell out yesterday afternoon. Was planning to see his urologist later today but was unable to wait due to lower abdominal pain with retention. States that he was seen here recently for urinary tract infection for which he is currently on antibiotics. Feeling well at this time post Resendez catheter placement. Denies any symptoms at present. Related Data Previous Rx's ?Medication ?Instructions ?Recorded fluticasone fur. 100 mcg-umeclid 2 inh inhalation BID #60 ea 04/08/24 62.5 mcg-vilant 25 mcg inhalat.powder (Trelegy Ellipta) ciprofloxacin HCl 500 mg tablet 500 mg PO BID #20 tabs 07/08/24 (Cipro) tamsulosin 0.4 mg capsule (Flomax) 0.4 mg PO QDAY #20 caps 07/08/24 cephalexin 500 mg capsule 500 mg PO TID 7 days #21 cap s 11/25/24 Allergies Allergy/AdvReac Type Severity Reaction Status Date / Time No Known Allergies Allergy Verified 11/25/24 10:34 Review of Systems Review of Systems Systems Reviewed: All systems reviewed, normal except as documented Past Medical History Past Medical History Comments PMH COMMENT: Past medical history significant for urinary retention, SVT, COPD ED Exam Narrative Physical exam: Constitutional: Awake, alert, nontoxic, no acute distress HEENT: Normocephalic, atraumatic Neck: Supple CV: Regular rate and rhythm, no murmurs/rubs/gallops Lungs: Clear to auscultation BL, no respiratory distress. Abd: Soft, NT, ND, no HSM noted to palpation Skin: Warm, dry, intact Course Course Course Narrative: 0625h: Patient here for urinary retention, Resendez catheter placed, resolution of symptoms. On antibiotic at home for UTI currently. No indication for further emergent workup at this time. To follow-up with urologist as planned. Quality Measures none Orders Category Date Time Status Catheter [Urinary Catheter] QS Care 11/28/24 06:13 Active Vital Signs Vital signs: Vital Signs Temperature 98.4 F 11/28/24 05:42 Pulse Rate 82 11/28/24 05:42 Respiratory Rate 18 11/28/24 05:42 Blood Pressure 175/104 H 11/28/24 05:42 Pulse Oximetry (%) 97 11/28/24 05:42 Oxygen Delivery Method Room Air 11/28/24 05:42 Urogenital - Male Patient data External records reviewed:: [facility] previous records Clinical information provided by:: patient Social determinants that could affect healthcare access:: none Patient has the following chronic illnesses:: BPH, COPD How is presenting disease/condition affected by chronic disease/condition?: exacerbated by Evaluation data The following diagnostics were reviewed and interpreted by me:: other (specify) Lab and/or radiology exams considered but not ordered:: None Interpretation Summary: None Medications / Prescriptions Medications or Prescriptions considered but not ordered:: None Medication administrations:: None Consultations Consultation(s) initiated? (list below): No Diagnosis Urogenital Male Differential Diagnosis: urinary tract infection and acute retention of urine Most likely diagnosis given after review of the tests above:: Acute urinary retention Admission Indicated Admission indicated?: not indicated Admission Request Was there a request for admission?: No Disposition Plan Disposition Plan: Discharge Discharge Attestation Discharge Attestation: The patient and all family members were given an opportunity to ask questions and understood the discharge instructions. Discharge instructions specifically effects, indications for sooner follow up or return to the emergency department, and the expected course of current diagnosis. Patient condition: Stable Discharge Plan Plan Patient Disposition: HOME (Self Care) Patient condition on transfer: Stable Prescriptions/Referrals Prescriptions/Med Rec: No Action [place] Ellipta 100-62.5-25 mcg blister with device 2 inh inhalation BID Qty: 60 0RF cephalexin 500 mg capsule 500 mg PO TID 7 Days Qty: 21 0RF ciprofloxacin HCl [Cipro] 500 mg tablet 500 mg PO BID Qty: 20 0RF tamsulosin [Flomax] 0.4 mg capsule 0.4 mg PO QDAY Qty: 20 0RF Referrals: No Primary/Family,Physician [Primary Care Provider] - In 1 week Problem List Clinical Impression: Acute urinary retention Patient/Caregiver Discharge Instructions Education Materials: ED Urinary Retention, Male Print Language: Taiwanese Stand Alone Forms: Shirley Award Info., Patient Portal Info Letter
== END 2024-11-28 06:44 | disposition home or self-care (01) ==
PROVIDERS: Emergency Provider Family Medicine
DX: N40.1 Benign prostatic hyperplasia with lower urinary tract symptoms (principal); R33.8 Other retention of urine; N39.0 Urinary tract infection, site not specified; J44.9 Chronic obstructive pulmonary disease, unspecified
CPT/HCPCS: 51702; 99284; A4314

== ENCOUNTER 2024-12-15 11:46 | Emergency (ER) | payer OTHER, SELFPAY ==
[2024-12-15 11:47] VITALS: BMI 26.8
[2024-12-15 11:52] VITALS: BP 162/102; PULSE 85; RESP 22; TEMP 36.7; O2SAT 97
--- NOTE | 2024-12-15 13:11 | EDNOTE_ITS ---
<Statement entered by Ria Pennington MD - 12/30/24 14:16> As co-signing physician, I was present and available for consult prn. I concur with the plan and care as documented by the midlevel provider. ED General RME/HPI General Chief complaint: General Adult/Misc Complain Stated complaint: BLOCKED PATTON CATHETER SINCE LAST NIGHT Time Seen by Provider: 12/15/24 11:57 Arrival date/time: 12/15/24 11:46 This is a 74-year-old male that comes into emergency room with complaints of Fol ey catheter not working well. Patient states that was replaced approximately 1 week ago. Patient states he has a follow-up appoint with Dr. Mcdonough on December 17, 2024. Patient comes to the emergency room to have Patton catheter exchanged. No clots in catheter. Related Data Previous Rx's ?Medication ?Instructions ?Recorded fluticasone fur. 100 mcg-umeclid 2 inh inhalation BID #60 ea 04/08/24 62.5 mcg-vilant 25 mcg inhalat.powder (Trelegy Ellipta) ciprofloxacin HCl 500 mg tablet 500 mg PO BID #20 tabs 07/08/24 (Cipro) tamsulosin 0.4 mg capsule (Flomax) 0.4 mg PO QDAY #20 caps 07/08/24 Allergies Allergy/AdvReac Type Severity Reaction Status Date / Time No Known Allergies Allergy Verified 12/15/24 11:49 Review of Systems Review of Systems Systems Reviewed: All systems reviewed, normal except as documented Past Medical History Past Medical History Comments PMH COMMENT: Past medical history significant for urinary retention, SVT, COPD ED Exam Narrative Physical exam: VITAL SIGNS: Reviewed. GENERAL APPEARANCE: Alert and interactive, follows commands, no acute distress HEAD AND FACE: Non-traumatic. ENT: PERRL, conjuctiva pink and clear, eyelid no trauma, Mucous membrane moist. NECK: Supple, nontender, no nuchal rigidity. CHEST: No tenderness, no crepitus, no paradoxical movement, no retractions. LUNGS: breathing even and unlabored HEART: Regular rate, cap refill less than 2 seconds ABDOMEN: Soft, nondistended, no guarding, nontender NEUROLOGICAL: Gross motor function intact sensory function intact, Appropriate for age. MUSCULOSKELETAL: low back nontender, full range of motion. EXTREMITIES: No redness no swelling no skin breakdown on bilateral foot and leg. Distal neurovascular status intact bilateral foot SKIN: Color pink, dry, no rash, no lacerations, no abrasions, no contusions. Course Quality Measures none Orders Category Date Time Status Patton [Urinary Catheter] QS Care 12/15/24 12:32 Completed Urinary Catheter, Remove ONCE Care 12/15/24 12:32 Completed Ibuprofen Tab [Motrin Tab] Med 12/15/24 13:11 Discontinued 600 mg PO X1 ONE cefTRIAXone [Rocephin] 1,000 mg Med 12/15/24 13:11 Discontinued Lidocaine 1% 20 ml [Xylocaine 1% 20 ML] 2.1 ml IM X1 Vital Signs Vital signs: Vital Signs Temperature 98.0 F 12/15/24 11:52 Pulse Rate 85 12/15/24 11:52 Respiratory Rate 22 H 12/15/24 11:52 Blood Pressure 162/102 H 12/15/24 11:52 Pulse Oximetry (%) 97 12/15/24 11:52 Oxygen Delivery Method Room Air 12/15/24 11:52 Discharge Plan Plan Patient Disposition: HOME (Self Care) Patient condition on transfer: Stable Prescriptions/Referrals Prescriptions/Med Rec: No Action Trelegy Ellipta 100-62.5-25 mcg blister with device 2 inh inhalation BID Qty: 60 0RF ciprofloxacin HCl [Cipro] 500 mg tablet 500 mg PO BID Qty: 20 0RF tamsulosin [Flomax] 0.4 mg capsule 0.4 mg PO QDAY Qty: 20 0RF Problem List Clinical Impression: Encounter for Patton catheter replacement, Complication of Patton catheter, Acute UTI Patient/Caregiver Discharge Instructions Discharge Activity: activity as tolerated Education Materials: ED Bladder Infection, Male (Adult) Additional Instructions: Keep scheduled appointment with Dr. Mcdonough. Follow up with primary provider in 1- 2 days. Come back to ED if symptoms change or worsen Print Language: Kinyarwanda Stand Alone Forms: Shirley Award Info., Patient Portal Info Letter PA/VALET CASHIER Supervising Physician PA/VALET CASHIER Supervising Physician: gianluca BROOKS Narrative [facility] hospital course (for use when minimal MDM required): Patient already has a follow-up appointment with Dr. Mcdonough. Will have patient follow-up with urinary culture with Dr. Ocampo. Patient will be getting treated with Rocephin. Will send patient home on Keflex. Patient told to follow-up with primary provider in 1 to 2 days. Come back to the emergency room if symptoms change or worsen. Patient verbalized understanding. Dragon dictation: Although this document has been carefully reviewed, there may still be some phonetic and other typographical errors. These errors are purely grammatical due to imperfections in the software program and should not be construed in any way to compromise the substance of the patient's medical care during this visit. Clinical Information Provided by: none Medical Records reviewed [facility] Meds/Rx considered, not ordered None Labs/Rad/Tests considered, not ordered None Chronic Illness/Social Conditions which may negatively complicate care or outcome(s)-explain: other Labs Labs: interpreted by co Imaging Imaging interpretation: none Medication Administration(s) Medication Administration History Discontinued Medications Ceftriaxone Sodium 1,000 mg/ (Lidocaine HCl 2.1 ml) 0 mg IM X1 ONE Stop: 12/15/24 13:12 Last Admin: 12/15/24 13:23 Dose: 2.1 mg Documented By: OA Ibuprofen (Ibuprofen Tab 600 Mg Tablet) 600 mg PO X1 ONE Stop: 12/15/24 13:12 Last Admin: 12/15/24 13:24 Dose: 600 mg Documented By: OA
[2024-12-15] MEDS: cefTRIAXone 1,000 MG, LIDOCAINE 1% 20 ML 2.1 ML IM (13:23)
[2024-12-15] MEDS: IBUPROFEN TAB 600 MG TABLET PO (13:24)
== END 2024-12-15 13:38 | disposition home or self-care (01) ==
LOC: SERX 13:27
PROVIDERS: Emergency Provider Nurse Practitioner Family
DX: T83.091A Other mechanical complication of indwelling urethral catheter, initial encounter (principal); Y84.6 Urinary catheterization as the cause of abnormal reaction of the patient, or of later complication, without mention of misadventure at the time of the procedure; N39.0 Urinary tract infection, site not specified
CPT/HCPCS: 51702; 81001; 87086; 96372; 99284; A4314; J0696; J3490; A9270